=== PATIENT | male | born 1990 | race Caucasian/White ===

== ENCOUNTER 2016-12-22 17:10 | Emergency (ER) | payer BC, MEDICAID ==
[2016-12-22] MEDS ORDERED: NAPR500T2 PO (17:33)
[2016-12-22 18:54] LABS: MEAN CORPUSCULAR HEMOGLOBIN 31.4 pg (27.0-33.0); MEAN CORPUSCULAR HGB CONC 34.9 g/dl (32.0-36.5); RED CELL DISTRIBUTION WIDTH 12.6 % (11.5-14.5); WHITE BLOOD COUNT 12.1 K/mm3 (4.0-10.0)
[2016-12-22 19:18] LABS: METHADONE URINE NEGATIVE (NEGATIVE)
[2016-12-22 19:26] LABS: ALBUMIN 4.3 GM/DL (3.2-5.2); ALBUMIN/GLOBULIN RATIO 1.23 (1.00-1.93); ALKALINE PHOSPHATASE 59 U/L (45-117); ALT/SGPT 50 U/L (12-78); ANION GAP 9 MEQ/L (8-16); AST/SGOT 17 U/L (15-37); BILIRUBIN,DIRECT 0.2 MG/DL (0.0-0.2); BILIRUBIN,TOTAL 0.9 MG/DL (0.2-1.0); BLOOD UREA NITROGEN 8 MG/DL (7-18); CALCIUM LEVEL 9.6 MG/DL (8.5-10.1); CARBON DIOXIDE LEVEL 27 MEQ/L (21-32); CHLORIDE LEVEL 104 MEQ/L (98-107); CREATININE FOR GFR 1.05 MG/DL (0.70-1.30); GLOMERULAR FILTRATION RATE > 60.0 (>60); GLUCOSE, FASTING 140 MG/DL (70-105); POTASSIUM SERUM 4.1 MEQ/L (3.5-5.1); SODIUM LEVEL 140 MEQ/L (136-145); TOTAL PROTEIN 7.8 GM/DL (6.4-8.2)
[2016-12-22 21:10] VITALS: BP 118/78
== END 2016-12-22 21:11 | disposition home or self-care (01) ==
LOC: M ED 18:05
DX: F39 Unspecified mood [affective] disorder (principal)
CPT/HCPCS: 36415; 80048; 80076; 80306; 84443; 85027; 99285; G0480

== ENCOUNTER → 2021-03-07 | Outpatient (CLI) | payer BC ==
[~2021-03-07] MED LIST: NAPR-885 PO
--- NOTE | 2021-03-07 11:44 | REP ---
INDICATION: NEW DAILY PERSISTANT HEADACHES COMPARISON: None. TECHNIQUE: Axial noncontrast images from the skull base to the vertex with coronal reformations. This CT examination was performed using the following dose reduction techniques: Automated exposure control, adjustment of mA and/or kv according to the patient's size, and use of iterative reconstruction technique. FINDINGS: The ventricles, sulci, and cisterns are normal in position and appearance. Fry-white differentiation is maintained. No acute intracranial hemorrhage, mass/mass effect, pathology or trauma/injury. No evidence for acute infarction. No extra-axial fluid collection. Calvarium is intact. Moderate mucoperiosteal changes through the sinuses consistent with chronic sinusitis. IMPRESSION: Moderate chronic sinusitis suggested. No evidence for acute intracranial pathology or trauma/injury. <Electronically signed by Silviano Ceron > 03/07/21 [id number]
== END ==
LOC: M RAD 11:23
PROVIDERS: ATTEND Pediatrics
DX: G44.52 New daily persistent headache (NDPH) (principal)

== ENCOUNTER 2021-03-27 22:51 | Emergency (ER) | payer BC ==
[~2021-03-27] VITALS: Ht 165.1 cm; Wt 107.1 kg
[2021-03-27 22:52] VITALS: BP 134/84
[2021-03-27] MEDS ORDERED: VITA1CAP25 PO (23:00)
[2021-03-27] MEDS ORDERED: AMOX875T2 PO (23:00)
== END 2021-03-28 01:35 | disposition left against medical advice (07) ==
LOC: M ED 22:51
DX: Z53.21 Procedure and treatment not carried out due to patient leaving prior to being seen by health care provider (principal)

== ENCOUNTER 2021-09-08 21:37 | Emergency (ER) | payer BC ==
[~2021-09-08] VITALS: Ht 167.6 cm; Wt 106.3 kg
[~2021-09-08 21:37] MED LIST changes: +AMOX875T2 PO; +VITA1CAP25 PO
[2021-09-08 21:39] VITALS: BP 142/96
--- OUTSIDE RECORDS SUMMARY | 2021-09-08 21:43 | CCD ---
Author Organization Unknown Address [address] [place] [address] Phone [phone] Care Team Providers Care Claim Specialist Name Role Phone [facility] 129 [phone] FERMIN RICHARDSON MD 3 [phone] Allergies Code Code System Name Reaction Severity Status Onset NKDA Medications Name Status Start Date Stop Date Augmentin 875 mg-125 mg tablet Take 1 tablet every 12 hours by oral route for 14 days. Completed 04/17/2021 b2 100mg tab TAKE 4 TABLETS BY MOUTH ONCE DAILY Completed 08/03 fluticasone propionate 50 mcg/actuation nasal spray,suspension [place] 1 spray every day by intranasal route. Active Not available magnesium oxide 500 mg tablet TAKE 1 TABLET BY MOUTH ONCE DAILY Active Not a vailable riboflavin (vitamin B2) 400 mg tablet Take 1 tablet every day by oral route. Active Not available Vitamin D3 50 mcg (2,000 unit) capsule Take 1 capsule every day by oral route. Active Not available zonisamide 25 mg capsule Completed 021 zonisamide 50 mg capsule Active Not murali ilable Problems Name Status Onset Date Source Mixed Anxiety and Depressive Disorder Active 02/25/2021 Seasonal Allergy Active 02/25/2021 Vitamin D Deficiency Active 03/17/2021 Hyperlipidemia Active 03/17/2021 Chronic Sinusitis Active 03/17/2021 Sinus Headache Active 03/17/2021 Depressive Disorder Active 06/04/2021 Headache Disorder Active 08/11/2021 Procedures Date Name Performed by 02/25/2021 CT, Head, W/o Contrast [facility] [address] [place] [address] (Work Place) Results Lab Results Date Name Specimen Result Interpretation Description Value Range Status Address Lipid Panel, Serum Blood venous High Cholesterol, T otal 230 mg/dL <200 mg/dL Final [facility] gh: [address] [place] Blood venous Normal HDL Cholesterol 50 mg/dL > or = 40 mg/dL Final [facility]: [address] [facility] Blood venous High Triglycerides 179 mg/dL <150 mg/dL [facility]: [address] [facility] Blood venous High LDL-cholesterol 149 mg/dL (ca lc) [facility]: [address] [facility] Blood venous Normal Chol/hdlc Ratio 4.6 (calc) <5 .0 (calc) [facility]: [address] [facility] Blood venous High Non HDL Cholesterol 180 mg/dL (calc) <130 mg/dL (calc) Final [facility]: [address] [facility] Hepatitis Panel (A+B+C), Acute, Serum Blood venous Normal Hepatitis a IgM non-reactive non-reactive Final [facility]: [address] [facility] Blood venous Normal Hepatitis B Surface Antig en non-reactive non-reactive Final [facility]: [address] [facility] Blood venous Normal Hepatitis B Core Antibody (IgM) non-reactive non-reactive Final [facility]: [address] [facility] Blood venous Normal Hepatitis C Antibody non -reactive non-reactive [facility]: [address] [facility] Blood venous Normal Index 0.01 <1.00 Final [facility]: [address] [facility] HIV 1+2 Ab + HIV1 P24 Ag, Quantitative Immunoassay, Serum Normal HIV Ag/Ab, 4TH Gen non-reactive non-reactive Final [facility]: [address] [facility] CMP, Serum or Plasma Blood venous Normal Glucose 98 mg/dL 65-99 mg/dL [facility]: [address] [facility] venous Normal Urea Nitrogen (BUN) 13 mg/dL 7-25 mg/dL [facility]: [address] [facility] Blood venous Normal Creatinine 0.88 mg/dL 0.60-1. 35 mg/dL [facility]: [address] [facility] Blood venous Normal eGFR Non-afr. Finnish 1 15 mL/min/1.73m2 > or = 60 mL/min/1.73m2 [facility]: [address] [facility] Blood venous Normal eGFR 13 4 mL/min/1.73m2 > or = 60 mL/min/1.73m2 [facility] [address] [facility] Blood venous BUN/creatinine Ratio not applicable (calc) 6-22 (calc) [facility]: [address] [facility] Blood venous Normal Sodium 138 mmol/L 135-146 mmo l/L [facility]: [address] [facility] Blood venous Normal Potassium 4.0 mmol/L 3.5-5.3 mmol/L [facility]: [address] [facility] Blood venous Normal Chloride 102 mmol/L 98-110 mm ol/L [facility]: [address] [facility] Blood venous Normal Carbon Dioxide 28 mmol/L 20-3 2 mmol/L [facility]: [address] [facility] Blood venous Normal Calcium 9.7 mg/dL 8.6-10.3 mg /dL [facility]: [address] [facility] Blood venous Normal Protein, Total 7.4 g/dL 6.1-8 .1 g/dL [facility]: [address] [facility] Blood venous Normal Albumin 4.4 g/dL 3.6-5.1 g/dL [facility]: [address] [facility] Blood venous Normal Globulin 3.0 g/dL (calc) 1.9- 3.7 g/dL (calc) [facility]: [address] [facility] Blood venous Normal Albumin/globulin Ratio 1 .5 (calc) 1.0-2.5 (calc) [facility]: [address] [facility] Blood venous Normal Bilirubin, Total 0.7 mg/dL 0. 2-1.2 mg/dL [facility]: [address] [facility] Blood venous Normal Alkaline Phosphatase 51 U/L 3 6-130 U/L [facility]: [address] [facility] Blood venous Normal Ast 27 U/L 10-40 U/L [facility]: [address] [facility] Blood venous Normal Alt 40 U/L 9-46 U/L Final [facility]: [address] [place] Tsh Normal Tsh 1.43 mIU/L 0.40-4.50 mIU/L Tosha l [facility]: [address] [place] Vitamin D, 25-Hydroxy, Total, Serum Blood venous Low Vitamin D,25- Oh,total,ia 12 NG/mL 30-100 NG/mL Final [facility]: [address] [facility] HbA1C (Hemoglobin a1C), Blood Blood venous Normal Hemoglobin a1C 4.9 % of total HGB <5.7 % of total HGB Final [facility]: [address] [facility] RPR (Rapid Plasma Reagin), Serum Blood venous Normal RPR (DX) W/refl Titer and Confirmatory Testing non-reactive non-reactive Final [facility]: [address] [place] Past Encounters 08/20/2021 Administration of SARS-CoV-2 mRNA Vaccine Jose Cedeno MD: [address] [place] [phone], Ph. 08/12/2021 Headache Disorder; Mixed Anxiety and Depressive Disorder; Hyperlipidemia; Vitamin D Deficiency; Body Mass Index 30+ - Obesity; Influenza Vaccination Declined Fermin Richardson MD: [address] [place] [address], Ph. 07/31/2021 Cervical Lymphadenopathy Jose Cedeno MD: [address] [place] [phone], Ph. 07/28/2021 Depressive Disorder Raine Moctezuma [facility]: [address] [place] [address], Ph. 07/14/2021 Depressive Disorder Raine Moctezuma [facility]: [address] [place] [address], Ph. 06/30/2021 Depressive Disorder Riane Moctezuma [facility]: [address] [place] [address], Ph. 06/16/2021 Depressive Disorder Raine Moctezuma [facility]: [address] [place] [phone], Ph. 06/03/2021 Depressive Disorder Raine Moctezuma, [facility]: [address] [place] [phone], Ph. 04/17/2021 Headache; Sinus Headache Fermin Richardson MD: [address] [place] [phone], Ph. 03/17/2021 Chronic Sinusitis; Hyperlipidemia; Vitamin D Deficiency Fermin Richardson MD: [address] [place] [phone], Ph. 03/06/2021 Endocrine/metabolic Screening; Venereal Disease Screening; Hyperlipidemia Screening [facility] [address] [place] [phone], Ph. 02/25/2021 Patient New to Provider; Hyperlipidemia Screening; Endocrine/metabolic Screening; Venereal Disease Screening; Body Mass Index 30+ - Obesity; Mixed Anxiety and Depressive Disorder; Immunization Due; New Daily Persistent Headache Fermin Richardson MD: [address] [place] [phone], Ph. 01/08/2021 Administration of SARS-CoV-2 Antigen Vaccine Jose Cedeno MD: [address] [place] [phone], Ph. 12/08/2020 Administration of SARS-CoV-2 Antigen Vaccine [facility]: [address] [place] [phone], Ph. Social History Tobacco Smoking Status Former Smoker Vaccine List Vaccine Type COVID-19, mRNA, LNP-S, PF, 100 mcg/0.5 m L dose (Moderna) .5 mL .5 mL .25 mL Td (adult) preservative free 10.5 mL Plan of Care Reminders Provider Appointments None recorded. Lab None recorded. Referral None recorded. Procedures None recorded. Surgeries None recorded. Imaging None recorded. Vitals 08/12/2021 09:00AM ESTABLISHED [id number] Height Weight BMI Blood Pressure 65 in 232 lbs 6 oz 38.7 kg/m2 110/75 mm[Hg] 07/31/2021 11:00AM SAME DAY 20 Height Weight BMI Blood Pressure 65 in 234 lbs 4 oz 39 kg/m2 117/78 mm[Hg] 04/17/2021 05:00PM ESTABLISHED [id number] Height Weight BMI Blood Pressure 65 in 237 lbs 2 oz 39.5 kg/m2 112/78 mm[Hg] 03/17/2021 05:00PM PROVIDER REQUESTED Height Weight BMI Blood Pressure 65 in 233 lbs 9.6 oz 38.9 kg/m2 107/73 mm[Hg ] 03/06/2021 01:00PM NURSE LAB COLLECTION Height 65 in 02/25/2021 05:20PM NEW PATIENT (12yrs - OLDER) Height Weight BMI Blood Pressure 65 in 233 lbs 3.2 oz 38.8 kg/m2 123/82 mm[Hg ]
--- OUTSIDE RECORDS SUMMARY | 2021-09-08 21:43 | CCD ---
Author Organization Unknown Address [address] [place] [address] Phone [phone] Care Team Providers Care Sustainability Project Manager Name Role Phone Daisy Ann Unavailable Unavailable Allergies Code Code System Name Reaction Severity Status Onset NKDA Medications Name Status Start Date Stop Date Augmentin 875 mg-125 mg tablet Take 1 tablet every 12 hours by oral route for 14 days. Completed 04/17/2021 b2 100mg tab TAKE 4 TABLETS BY MOUTH ONCE DAILY Active Not available fluticasone propionate 50 mcg/actuation nasal spray,suspension [place] 1 spray every day by intranasal route. [...] Active Not available zonisamide 25 mg capsule Active Not murali ilable zonisamide 50 mg capsule Active Not murali ilable Problems Name Status Onset Date Source Mixed Anxiety and Depressive Disorder Active 02/25/2021 Seasonal Allergy Active 02/25/2021 Vitamin D Deficiency Active 03/17/2021 Hyperlipidemia Active 03/17/2021 Chronic Sinusitis Active 03/17/2021 Sinus Headache Active 03/17/2021 Depressive Disorder Active 06/04/2021 Procedures Date Name Performed by 02/25/2021 CT, Head, W/o Contrast [facility] [address] [place] [address] (Work Place) Results Lab Results Date Name Specimen Result Interpretation Description Value Range Status Address Lipid Panel, Serum Blood venous High Cholesterol, T otal 230 mg/dL <200 mg/dL Final [facility]: [address] [place] Blood venous Normal HDL Cholesterol 50 mg/dL > or = 40 mg/dL Final [facility]: [address] [place], [place] Blood venous High Triglycerides 179 mg/dL <150 mg/dL Final [facility]: [address] [facility] [place] [facility] Blood venous High LDL-cholesterol 149 mg/dL (ca lc) Final [facility]: [address] [facility] Blood venous Normal Chol/hdlc Ratio 4.6 (calc) <5 .0 (calc) [facility]: [address] [facility] Blood venous High Non HDL Cholesterol 180 mg/dL (calc) <130 mg/dL (calc) Final [facility]: [address] [facility] Hepatitis Panel (A+B+C), Acute, Serum Blood venous Normal Hepatitis a IgM non-reactive non-reactive Final [facility]: [address] [facility] Blood venous Normal Hepatitis B Surface Antig en non-reactive non-reactive Final [facility]: [address] [facility] Blood venous Normal Hepatitis B Core Antibody (IgM) non-reactive non-reactive Final [facility]: [address] [facility] Blood venous Normal Hepatitis C Antibody non -reactive non-reactive [facility]: [address] [facility] Blood venous Normal Index 0.[address] <1.[address] [facility]: [address] [facility] HIV 1+2 Ab + HIV1 P24 Ag, Quantitative Immunoassay, Serum Normal HIV Ag/Ab, 4TH Gen non-reactive non-reactive Final [facility]: [address] [facility] CMP, Serum or Plasma Blood venous Normal Glucose 98 mg/dL 65-99 mg/dL Final [facility]: [address] [facility] Blood venous Normal Urea Nitrogen (BUN) 13 mg/dL 7-25 mg/dL Final [facility]: [address] [facility] [place] [facility] Blood venous Normal Creatinine 0.88 mg/dL 0.60-1. 35 mg/dL [facility]: [address] [facility] [place] [facility] Blood venous Normal eGFR Non-afr. [place] 1 15 mL/min/1.73m2 > or = 60 mL/min/1.73m2 Final [facility]: [address] [facility] Blood venous Normal eGFR 13 4 mL/min/1.73m2 > or = 60 mL/min/1.73m2 Final [facility]: [address] [facility] Blood venous BUN/creatinine Ratio not applicable (calc) 6-22 (calc) Final [facility]: [address] [facility] Blood venous Normal Sodium 138 mmol/L 135-146 mmo l/L Final [facility]: [address] [facility] [place] [facility] Blood venous Normal Potassium 4.0 mmol/L 3.5-5.3 mmol/L Final [facility]: [address] [facility] Blood venous Normal Chloride 102 mmol/L 98-110 mm ol/L Final [facility]: [address] [facility] [place] [facility] Blood venous Normal Carbon Dioxide 28 mmol/L 20-3 2 mmol/L Final [facility]: [address] [facility] Blood venous Normal Calcium 9.7 mg/dL 8.6-10.3 mg /dL [facility]: [address] [facility] [place] [facility] Blood venous Normal Protein, Total 7.4 g/dL 6.1-8 .1 g/dL Final [facility]: [address] [facility] Blood venous Normal Albumin 4.4 g/dL 3.6-5.1 g/dL [facility]: [address] [facility] Blood venous Normal Globulin 3.0 g/dL (calc) 1.9- 3.7 g/dL (calc) [facility]: [address] [facility] Blood venous Normal Albumin/globulin Ratio 1 .5 (calc) 1.0-2.5 (calc) [facility]: [address] [facility] Blood venous Normal Bilirubin, Total 0.7 mg/dL 0. 2-1.2 mg/dL Final [facility]: [address] [facility] Blood venous Normal Alkaline Phosphatase 51 U/L 3 6-130 U/L Final [facility]: [address] [facility] Blood venous Normal Ast 27 U/L 10-40 U/L Final [facility]: [address] [facility] Blood venous Normal Alt 40 U/L 9-46 U/L [facility] [address] [facility] Tsh Normal Tsh 1.43 mIU/L 0.40-4.50 mIU/L Tosha l [facility]: [address] [facility] Vitamin D, 25-Hydroxy, Total, Serum Blood venous Low Vitamin D,25- Oh,total,ia 12 NG/mL 30-100 NG/mL Final [facility]: [address] [facility] HbA1C (Hemoglobin a1C), Blood Blood venous Normal Hemoglobin a1C 4.9 % of total HGB <5.7 % of total HGB Final [facility]: [address] [facility] RPR (Rapid Plasma Reagin), Serum Blood venous Normal RPR (DX) W/refl Titer and Confirmatory Testing non-reactive non-reactive Final [facility]: [address] [facility] Past Encounters 07/31/2021 Cervical Lymphadenopathy Jose Cedeno MD: [address] [place] [phone], Ph. 07/28/2021 Depressive Disorder [facility] [address] [place] [phone], Ph. 07/14/2021 Depressive Disorder [facility]jelica [facility]: [address] [place] [phone], Ph. 06/30/2021 Depressive Disorder [facility]jelica [facility]: [address] [place] [phone], Ph. 06/16/2021 Depressive Disorder [facility]aine [facility]: [address] [place] [phone], Ph. 06/03/2021 Depressive Disorder [facility]jelica [facility]: [address] [place] [phone], Ph. 04/17/2021 Headache; Sinus Headache Karen David MD: [address] [place] [phone], Ph. 03/17/2021 Chronic Sinusitis; Hyperlipidemia; Vitamin D Deficiency Karen David MD: [address] [place] [phone], Ph. 03/06/2021 Endocrine/metabolic Screening; Venereal Disease Screening; Hyperlipidemia Screening Daisy Ann [employer]: [address] [place] [phone], Ph. 02/25/2021 Patient New to Provider; Hyperlipidemia Screening; Endocrine/metabolic Screening; Venereal Disease Screening; Body Mass Index 30+ - Obesity; Mixed Anxiety and Depressive Disorder; Immunization Due; New Daily Persistent Headache Karen David MD: [address] [place] [phone], Ph. 01/08/2021 Administration of SARS-CoV-2 Antigen Vaccine Jose Cedeno MD: [address] [place] [phone], Ph. 12/08/2020 Administration of SARS-CoV-2 Antigen Vaccine Heather Chavez [facility]: [address] [place] [phone], Ph. Social History Tobacco Smoking Status Former Smoker Vaccine List Vaccine Type COVID-19, mRNA, LNP-S, PF, 100 mcg/0.5 m L dose 10.5 mL 10.5 mL Td (adult) preservative free 10.5 mL Plan of Care Reminders Provider Appointments None recorded. Lab None recorded. Referral None recorded. Procedures None recorded. Surgeries None recorded. Imaging None recorded. Vitals 07/31/2021 11:00AM SAME DAY 20 Height Weight BMI Blood Pressure 65 in 234 lbs 4 oz 39 kg/m2 117/78 mm[Hg] 04/17/2021 05:00PM ESTABLISHED [id number] Height Weight BMI Blood Pressure 65 in [...]
--- OUTSIDE RECORDS SUMMARY | 2021-09-08 21:43 | CCD ---
Author Organization Unknown Address [address] [place] [address] Phone [phone] Care Team Providers Care Supervisor Bottle Machines Name Role Phone [facility] 129 [phone] FERMIN RICHARDSON MD 3 [phone] Allergies Code Code System Name Reaction Severity Status Onset NKDA Medications Name Status Start Date Stop Date Augmentin 875 mg-125 mg tablet Take 1 tablet every 12 hours by oral route for 14 days. Completed 04/17/2021 b2 100mg tab TAKE 4 TABLETS BY MOUTH ONCE DAILY Completed 08/03 fluticasone propionate 50 mcg/actuation nasal spray,suspension [place] 1 spray every day by intranasal route. [...] Performed by 02/25/2021 CT, Head, W/o Contrast [facility] [address] [place] [address] (Work Place) Results Lab Results Date Name Specimen Result Interpretation Description Value Range Status Address Lipid Panel, Serum Blood venous High Cholesterol, T otal 230 mg/dL <200 mg/dL Final [facility] gh: [address] , [place] Blood venous Normal HDL Cholesterol 50 mg/dL > or = 40 mg/dL Final [facility]: [address] [facility] Blood venous High Triglycerides 179 mg/dL <150 mg/dL [facility]: [address] [facility] Blood venous High LDL-cholesterol 149 mg/dL (ca lc) [facility]: [address] [facility] Blood venous Normal Chol/hdlc Ratio 4.6 (calc) <5 .0 (calc) [facility]: [address] [facility] Blood venous High Non HDL Cholesterol 180 mg/dL (calc) <130 mg/dL (calc) Final [facility]: [address] [facility] Hepatitis Panel (A+B+C), Acute, Serum Blood venous Normal Hepatitis a IgM non-reactive non-reactive Final [facility]: [address] [facility] Blood venous Normal Hepatitis B Surface Antig en non-reactive non-reactive Final [facility]: [address] [facility] Blood venous Normal Hepatitis B Core Antibody (IgM) non-reactive non-reactive Final [facility]: [address] [facility] Blood venous Normal Hepatitis C Antibody non -reactive non-reactive [facility]: [address] [facility] Blood venous Normal Index 0.01 <1.00 Final [facility]: [address] [facility] HIV 1+2 Ab + HIV1 P24 Ag, Quantitative Immunoassay, Serum Normal HIV Ag/Ab, 4TH Gen non-reactive non-reactive Final [facility]: [address] [facility] CMP, Serum or Plasma Blood venous Normal Glucose 98 mg/dL 65-99 mg/dL [facility]: [address] [facility] venous Normal Urea Nitrogen (BUN) 13 mg/dL 7-25 mg/dL [facility]: [address] [facility] Blood venous Normal Creatinine 0.88 mg/dL 0.60-1. 35 mg/dL [facility]: [address] [facility] Blood venous Normal eGFR Non-afr. Faro[place] 1 15 mL/min/1.73m2 > or = 60 mL/min/1.73m2 [facility]: [address] [facility] Blood venous Normal eGFR 13 4 mL/min/1.73m2 > or = 60 mL/min/1.73m2 [facility] [address] [facility] Blood venous BUN/creatinine Ratio not applicable (calc) 6-22 (calc) [facility]: [address] [facility] Blood venous Normal Sodium 138 mmol/L 135-146 mmo l/L [facility]: [address] [facility] Blood venous Normal Potassium 4.0 mmol/L 3.5-5.3 mmol/L [facility]: [address] [facility] Blood venous Normal Chloride 102 mmol/L 98-110 mm ol/L [facility]: [address] [facility] Blood venous Normal Carbon Dioxide 28 mmol/L 20-3 2 mmol/L [facility]: [address] [facility] Blood venous Normal Calcium 9.7 mg/dL 8.6-10.3 mg /dL [facility]: [address] [facility] Blood venous Normal Protein, Total 7.4 g/dL 6.1-8 .1 g/dL [facility]: [address] [facility] Blood venous Normal Albumin 4.4 g/dL 3.6-5.1 g/dL [facility]: [address] [facility] Blood venous Normal Globulin 3.0 g/dL (calc) 1.9- 3.7 g/dL (calc) [facility]: [address] [facility] Blood venous Normal Albumin/globulin Ratio 1 .5 (calc) 1.0-2.5 (calc) [facility]: [address] [facility] Blood venous Normal Bilirubin, Total 0.7 mg/dL 0. 2-1.2 mg/dL [facility]: [address] [facility] Blood venous Normal Alkaline Phosphatase 51 U/L 3 6-130 U/L [facility]: [address] [facility] Blood venous Normal Ast 27 U/L 10-40 U/L [facility]: [address] [facility] Blood venous Normal Alt 40 U/L 9-46 U/L Final [facility]: [address] [place] Tsh Normal Tsh 1.43 mIU/L 0.40-4.50 mIU/L Tosha l [facility] [place]: [address] [place] Vitamin D, 25-Hydroxy, Total, Serum Blood venous Low Vitamin D,25- Oh,total,ia 12 NG/mL 30-100 NG/mL Final [facility]: [address] [place] HbA1C (Hemoglobin a1C), Blood Blood venous Normal Hemoglobin a1C 4.9 % of total HGB <5.7 % of total HGB Final [facility]: [address] [facility] [place] RPR (Rapid Plasma Reagin), Serum Blood venous Normal RPR (DX) W/refl Titer and Confirmatory Testing non-reactive non-reactive Final [facility]: [address] [place] Past Encounters 08/12/2021 Headache Disorder; Mixed Anxiety and Depressive Disorder; Hyperlipidemia; Vitamin D Deficiency; Body Mass Index 30+ - Obesity; Influenza Vaccination Declined Fermin Richardson MD: [address] [place] [phone], Ph. 07/31/2021 Cervical Lymphadenopathy Jose Cedeno MD: [address] [place] [phone], Ph. 07/28/2021 Depressive Disorder [facility]: [address] [place] [phone], Ph. 07/14/2021 Depressive Disorder [facility]aine [facility]: [address] [place] [phone], Ph. 06/30/2021 Depressive Disorder [facility]aine [facility]: [address] [place] [phone], Ph. 06/16/2021 Depressive Disorder [facility]aine [facility]: [address] [place] [phone], Ph. 06/03/2021 Depressive Disorder [facility]aine [facility]: [address] [place] [phone], Ph. 04/17/2021 Headache; Sinus Headache Fermin Richardson MD: [address] [place] [phone], Ph. 03/17/2021 Chronic Sinusitis; Hyperlipidemia; Vitamin D Deficiency Fermin Richardson MD: [address] [place] [phone], Ph. 03/06/2021 Endocrine/metabolic Screening; Venereal Disease Screening; Hyperlipidemia Screening [facility] [address] [place] [phone], Ph. 02/25/2021 Patient New to Provider; Hyperlipidemia Screening; Endocrine/metabolic Screening; Venereal Disease Screening; Body Mass Index 30+ - Obesity; Mixed Anxiety and Depressive Disorder; Immunization Due; New Daily Persistent Headache Fermin Richardson MD: [address] [place] [phone], Ph. 01/08/2021 Administration of SARS-CoV-2 Antigen Vaccine Jose Cedeno MD: [address] [place] [phone], Ph. 12/08/2020 Administration of SARS-CoV-2 Antigen Vaccine CORY Steward: [address] [place] [phone], Ph. Social History Tobacco Smoking Status Former Smoker Vaccine List Vaccine Type COVID-19, mRNA, LNP-S, PF, 100 mcg/0.5 m L dose 10.5 mL 10.5 mL Td (adult) preservative free 10.5 mL Plan of Care Reminders Provider Appointments None recorded. Lab None recorded. Referral None recorded. Procedures None recorded. Surgeries None recorded. Imaging None recorded. Vitals 08/12/2021 09:00AM ESTABLISHED [id number] Height Weight BMI Blood Pressure 65 in 232 lbs 6 oz 38.7 kg/m2 110/75 mm[Hg] 07/31/2021 11:00AM SAME DAY 20 Height Weight BMI Blood Pressure 65 in 234 lbs 4 oz 39 kg/m2 117/78 mm[Hg] 04/17/2021 05:00PM ESTABLISHED [id number] Height Weight BMI Blood Pressure 65 in [...]
--- OUTSIDE RECORDS SUMMARY | 2021-09-08 21:43 | CCD | Continuity of Care Document ---
Author Author Jaxson CAMEJO M.D. Organization Unknown Address [address] [place] [id number] Phone [phone] Care Team Providers Care Rn Medicare Name Role Phone Karen David M.D. AUTM [phone] Problems Description No Information Available Social History Type Date Description Comments Sex Unknown Allergies and adverse reactions Description No Information Available Medications Active Medications SIG Qnty Indications Ordering Provide r Date Zonisamide 50mg Capsules 1 by mouth twice a day 60rigo Camejo M.D. 06/11/2021 History Medications Zonisamide 25mg Capsules 1 tab by mouth nightly x 1 week, then 1 tab twice a day x 1 week, then 1 tab morning and 2 tabs nightly 42rigo Camejo M.D. 06/11/2021 - 07/07/2021 Immunizations Description No Information Available Vital Signs Description No Information Available Results Description No Information Available Procedures Date Code Description Status 07/07/2021 69480 Phone Evaluation/Management Phys ician 11-20 Mins Completed 06/15/2021 24609 MRI Brain W/O Contrast Completed 06/15/2021 52979 MRI Brain W/O Contrast Completed 06/15/2021 67283 MRI Brain W/O Contrast Completed 06/09/2021 70992 EEG Recording Awake & Asleep Com pleted 06/09/2021 42218 EEG Recording Awake & Asleep Com pleted 04/30/2021 31566 Office/Outpatient New Moderate M DM 45-59 Minutes Completed Medical Devices Description No Information Available Encounters Type Date Location Provider Dx Diagnosis Office Visit 07/07/2021 10:15a Main office - [place] Came[place] M.[place]. R42 Dizziness and giddiness G47.00 Insomnia, unspecified G43.809 Other migraine, not intracta ble, without status migrainosus Office Visit 04/30/2021 3:00p Main office - [place] Becky Camejo M.D. R42 Dizziness and giddiness G47.00 Insomnia, unspecified G43.809 Other migraine, not intracta ble, without status migrainosus I95.1 Orthostatic hypotension Assessments Date Code Description Provider 07/07/2021 R42 Dizziness and giddiness Becky amato M.D. 07/07/2021 G47.00 Insomnia, unspecified Becky salgado M.D. 07/07/2021 G43.809 Other migraine, not intractable, without status migrainosus Becky Camejo M.D. 06/15/2021 G43.809 Other migraine, not intractable, without status migrainosus Ney Urbina MD 06/15/2021 G43.809 Other migraine, not intractable, without status migrainosus Darlene Camejo M.D. 06/15/2021 G43.809 Other migraine, not intractable, without status migrainosus MRI 06/15/2021 R55 Syncope and collapse Ney Urbina MD 06/15/2021 R55 Syncope and collapse Darlene Camejo M.D. 06/15/2021 R55 Syncope and collapse MRI 06/09/2021 R55 Syncope and collapse Becky jha M.D. 06/09/2021 R55 Syncope and collapse EEG 06/09/2021 R53.83 Other fatigue Nathan Andrew 06/09/2021 R53.83 Other fatigue EEG 04/30/2021 R42 Dizziness and giddiness Becky amato M.D. 04/30/2021 G47.00 Insomnia, unspecified Becky salgado M.D. 04/30/2021 G43.809 Other migraine, not intractable, without status migrainosus Becky Camejo M.D. 04/30/2021 I95.1 Orthostatic hypotension Becky amato M.D. Plan of Treatment Future Appointment(s):* 08/14/2021 1:45 pm - Ans/VS at Main office - [place] Functional Status Description No Information Available Mental Status Description No Information Available Referrals Refer to Reason for Referral Status Appt Date Created
--- OUTSIDE RECORDS SUMMARY | 2021-09-08 21:43 | CCD ---
Author Organization Unknown Address [address] [place] [address] Phone [phone] Care Team Providers Care Wig Sales Consultant Name Role Phone Daisy Ann Unavailable Unavailable Allergies Code Code System Name Reaction Severity Status Onset NKDA Medications Name Status Start Date Stop Date Augmentin 875 mg-125 mg tablet Take 1 tablet every 12 hours by oral route for 14 days. Completed 04/17/2021 b2 100mg tab TAKE 4 TABLETS BY MOUTH ONCE DAILY Active Not available fluticasone propionate 50 mcg/actuation nasal spray,suspension [place] 1 spray every day by intranasal route. [...] Performed by 02/25/2021 CT, Head, W/o Contrast [facility] [address] [place] [address] (Work Place) Results Lab Results Date Name Specimen Result Interpretation Description Value Range Status Address Lipid Panel, Serum Blood venous High Cholesterol, T otal 230 mg/dL <200 mg/dL Final [facility]: [address] [place] Blood venous Normal HDL Cholesterol 50 mg/dL > or = 40 mg/dL Final [facility]: [address], [place] Blood venous High Triglycerides 179 mg/dL <150 mg/dL Final [facility]: [address] [facility] Blood venous High LDL-cholesterol 149 mg/dL (ca lc) Final [facility]: [address] [facility] Blood venous Normal Chol/hdlc Ratio 4.6 (calc) <5 .0 (calc) [facility]: [address] [facility] Blood venous High Non HDL Cholesterol 180 mg/dL (calc) <130 mg/dL (calc) Final [facility]: [address] [facility] Hepatitis Panel (A+B+C), Acute, Serum Blood venous Normal Hepatitis a IgM non-reactive non-reactive Final [facility]: [address] [facility] Blood venous Normal Hepatitis B Surface Antig en non-reactive non-reactive Final [facility]: [address] [facility] Blood venous Normal Hepatitis B Core Antibody (IgM) non-reactive non-reactive Final [facility]: [address] [facility] Blood venous Normal Hepatitis C Antibody non -reactive non-reactive [facility]: [address] [facility] Blood venous Normal Index 0.01 <1.00 Final [facility]: [address] [facility] HIV 1+2 Ab + HIV1 P24 Ag, Quantitative Immunoassay, Serum Normal HIV Ag/Ab, 4TH Gen non-reactive non-reactive Final [facility]: [address] [facility] CMP, Serum or Plasma Blood venous Normal Glucose 98 mg/dL 65-99 mg/dL Final [facility]: [address] [facility] Blood venous Normal Urea Nitrogen (BUN) 13 mg/dL 7-25 mg/dL Final [facility]: [address] [facility] Blood venous Normal Creatinine 0.88 mg/dL 0.60-1. 35 mg/dL [facility]: [address] [facility] Blood venous Normal eGFR Non-afr. [place] 1 15 mL/min/1.73m2 > or = 60 mL/min/1.73m2 Final [facility]: [address] [facility] Blood venous Normal eGFR 13 4 mL/min/1.73m2 > or = 60 mL/min/1.73m2 Final [facility]: [address] [facility] Blood venous BUN/creatinine Ratio not applicable (calc) 6-22 (calc) Final [facility]: [address] [facility] Blood venous Normal Sodium 138 mmol/L 135-146 mmo l/L Final [facility]: [address] [facility] Blood venous Normal Potassium 4.0 mmol/L 3.5-5.3 mmol/L Final [facility]: [address] [facility] Blood venous Normal Chloride 102 mmol/L 98-110 mm ol/L Final [facility]: [address] [facility] Blood venous Normal Carbon Dioxide 28 mmol/L 20-3 2 mmol/L Final [facility]: [address] [facility] Blood venous Normal Calcium 9.7 mg/dL 8.6-10.3 mg /dL [facility]: [address] [facility] Blood venous Normal Protein, Total 7.4 g/dL 6.1-8 .1 g/dL Final [facility]: [address] [facility] Blood venous Normal Albumin 4.4 g/dL 3.6-5.1 g/dL [facility]: [address] [facility] Blood venous Normal Globulin 3.0 g/dL (calc) 1.9- 3.7 g/dL (calc) [facility]: [address] [facility] Blood venous Normal Albumin/globulin Ratio 1 .5 (calc) 1.0-2.5 (calc) [facility]: [address] [facility] Normal Bilirubin, Total 0.7 mg/dL 0. 2-1.2 mg/dL Final [facility]: [address] [facility] Blood venous Normal Alkaline Phosphatase 51 U/L 3 6-130 U/L Final [facility]: [address] [facility] Blood venous Normal Ast 27 U/L 10-40 U/L Final [facility]: [address] [facility] Blood venous Normal Alt 40 U/L 9-46 U/L Final [facility]: [address] [facility] Tsh Normal Tsh 1.43 mIU/L 0.40-4.50 mIU/L Tosha l [facility]: [address] [facility] Vitamin D, 25-Hydroxy, Total, Serum Blood venous Low Vitamin D,25- Oh,total,ia 12 NG/mL 30-100 NG/mL Final [facility]: [address] [facility] HbA1C (Hemoglobin a1C), Blood Blood venous Normal Hemoglobin a1C 4.9 % of total HGB <5.7 % of total HGB Final [facility]: [address] [facility] RPR (Rapid Plasma Reagin), Serum Blood venous Normal RPR (DX) W/refl Titer and Confirmatory Testing non-reactive non-reactive Final [facility]: [address] [facility] Past Encounters 07/28/2021 [facility]ressive [facility] [address] [place] [phone], Ph. 07/14/2021 Depressive Disorder [facility] [address] [place] [phone], Ph. 06/30/2021 Depressive Disorder [facility] [address] [place] [phone], Ph. 06/16/2021 Depressive Disorder [facility] [address] [place] [phone], Ph. 06/03/2021 Depressive Disorder [facility] [address] [place] [phone], Ph. 04/17/2021 Headache; Sinus Headache Karen David MD: [address] [place] [phone], Ph. 03/17/2021 Chronic Sinusitis; Hyperlipidemia; Vitamin D Deficiency Karen David MD: [address] [place] [phone], Ph. 03/06/2021 Endocrine/metabolic Screening; Venereal Disease Screening; Hyperlipidemia Screening GIANA Dave: [address] [place] [phone], Ph. 02/25/2021 Patient New to Provider; Hyperlipidemia Screening; Endocrine/metabolic Screening; Venereal Disease Screening; Body Mass Index 30+ - Obesity; Mixed Anxiety and Depressive Disorder; Immunization Due; New Daily Persistent Headache Karen David MD: [address] [place] [phone], Ph. 01/08/2021 Administration of SARS-CoV-2 Antigen Vaccine Jose Cedeno MD: [address] [place] [phone], Ph. 12/08/2020 Administration of SARS-CoV-2 Antigen Vaccine Heather Chavez [facility]: [address] [place] [phone], Ph. Social History Tobacco Smoking Status Former Smoker Vaccine List Vaccine Type COVID-19, mRNA, LNP-S, PF, 100 mcg/0.5 m L dose 10.5 mL 10.5 mL Td (adult) preservative free 10.5 mL Plan of Care Reminders Provider Appointments None recorded. Lab None recorded. Referral None recorded. Procedures None recorded. Surgeries None recorded. Imaging None recorded. Vitals 04/17/2021 05:00PM ESTABLISHED [id number] Height Weight BMI Blood Pressure 65 in [...]
--- OUTSIDE RECORDS SUMMARY | 2021-09-08 21:44 | CCD | Continuity of Care Document ---
Author Author Jaxson HOLBROOK V Organization Unknown Address [address] [place] [address] Phone [phone] Care Team Providers Care Edge Sawyer Name Role Phone Karen David M.D. AUTM [phone] Problems Description No Information Available Social History Type Date Description Comments Sex Unknown Allergies, Adverse Reactions, Alerts Description No Information Available Medications Description No Information Available Immunizations Description No Information Available Vital Signs Description No Information Available Results Description No Information Available Procedures Date Code Description Status 06/09/2021 60580 EEG Recording Awake & Asleep Com pleted 06/09/2021 10459 EEG Recording Awake & Asleep Com pleted 04/30/2021 62072 Office/Outpatient New Moderate M DM 45-59 Minutes Completed Medical Devices Description No Information Available Encounters Type Date Location Provider Dx Diagnosis Office Visit 04/30/2021 3:00p Main office - [place] Becky Camejo M.D. R42 Dizziness and giddiness G47.00 Insomnia, unspecified G43.809 Other migraine, not intracta ble, without status migrainosus I95.1 Orthostatic hypotension Assessments Date Code Description Provider 06/09/2021 R55 Syncope and collapse Becky jha [...] amato M.D. Plan of Treatment Future Appointment(s):* 07/07/2021 10:15 am - Becky Camejo M.D. at Main [facility] * 06/12/2021 11:45 am - Ans/VS at [facility] Functional Status Description No Information Available Mental Status Description No Information Available Referrals Description No Information Available
--- OUTSIDE RECORDS SUMMARY | 2021-09-08 21:44 | CCD ---
Author Organization Unknown Address [address] [place] [address] Phone [phone] Care Team Providers Care Associate Teacher Name Role Phone Daisy Ann Unavailable Unavailable Allergies Code Code System Name Reaction Severity Status Onset NKDA Medications Name Status Start Date Stop Date Augmentin 875 mg-125 mg tablet Take 1 tablet every 12 hours by oral route for 14 days. Completed 04/17/2021 b2 100mg tab TAKE 4 TABLETS BY MOUTH ONCE DAILY Active Not available fluticasone propionate 50 mcg/actuation nasal spray,suspension [place] 1 spray every day by intranasal route. [...] Performed by 02/25/2021 CT, Head, W/o Contrast [facility] [address] [place] [address] (Work Place) Results Lab Results Date Name Specimen Result Interpretation Description Value Range Status Address Lipid Panel, Serum Blood venous High Cholesterol, T otal 230 mg/dL <200 mg/dL Final [facility]: [address] , [place] Blood venous Normal HDL Cholesterol 50 mg/dL > or = 40 mg/dL Final [facility]: [address], [place] Blood venous High Triglycerides 179 mg/dL <150 mg/dL Final [facility]: [address] [facility] Blood venous High LDL-cholesterol 149 mg/dL (ca lc) Final [facility]: [address] [facility] Blood venous Normal Chol/hdlc Ratio 4.6 (calc) <5 .0 (calc) [facility]: [address] [facility] Blood venous High Non HDL Cholesterol 180 mg/dL (calc) <130 mg/dL (calc) Final [facility]: [address] [facility] Hepatitis Panel (A+B+C), Acute, Serum Blood venous Normal Hepatitis a IgM non-reactive non-reactive Final [facility]: [address] [facility] Blood venous Normal Hepatitis B Surface Antig en non-reactive non-reactive Final [facility]: [address] [facility] Blood venous Normal Hepatitis B Core Antibody (IgM) non-reactive non-reactive Final [facility]: [address] [facility] Blood venous Normal Hepatitis C Antibody non -reactive non-reactive [facility]: [address] [facility] Blood venous Normal Index 0.01 <1.00 Final [facility]: [address] [facility] HIV 1+2 Ab + HIV1 P24 Ag, Quantitative Immunoassay, Serum Normal HIV Ag/Ab, 4TH Gen non-reactive non-reactive Final [facility]: [address] [facility] CMP, Serum or Plasma Blood venous Normal Glucose 98 mg/dL 65-99 mg/dL Final [facility]: [address] [facility] Blood venous Normal Urea Nitrogen (BUN) 13 mg/dL 7-25 mg/dL Final [facility]: [address] [facility] Blood venous Normal Creatinine 0.88 mg/dL 0.60-1. 35 mg/dL [facility]: [address] [facility] Blood venous Normal eGFR Non-afr. Stateless 1 15 mL/min/1.73m2 > or = 60 mL/min/1.73m2 Final [facility]: [address] [facility] Blood venous Normal eGFR 13 4 mL/min/1.73m2 > or = 60 mL/min/1.73m2 Final [facility]: [address] [facility] Blood venous BUN/creatinine Ratio not applicable (calc) 6-22 (calc) Final [facility]: [address] lug[address] [facility] Blood venous Normal Sodium 138 mmol/L 135-146 mmo l/L Final [facility]: [address] [facility] Blood venous Normal Potassium 4.0 mmol/L 3.5-5.3 mmol/L Final [facility]: [address] [facility] Blood venous Normal Chloride 102 mmol/L 98-110 mm ol/L Final [facility]: [address] [facility] Blood venous Normal Carbon Dioxide 28 mmol/L 20-3 2 mmol/L Final [facility]: [address] [facility] Blood venous Normal Calcium 9.7 mg/dL 8.6-10.3 mg /dL [facility]: [address] [facility] Blood venous Normal Protein, Total 7.4 g/dL 6.1-8 .1 g/dL Final [facility]: [address] [facility] Blood venous Normal Albumin 4.4 g/dL 3.6-5.1 g/dL [facility]: [address] [facility] Blood venous Normal Globulin 3.0 g/dL (calc) 1.9- 3.7 g/dL (calc) [facility]: [address] [facility] Blood venous Normal Albumin/globulin Ratio 1 .5 (calc) 1.0-2.5 (calc) [facility]: [address] [facility] venous Normal Bilirubin, Total 0.7 mg/dL 0. 2-1.2 mg/dL Final [facility]: [address] [facility] Blood venous Normal Alkaline Phosphatase 51 U/L 3 6-130 U/L Final [facility]: [address] [facility] Blood venous Normal Ast 27 U/L 10-40 U/L Final [facility]: [address] [facility] Blood venous Normal Alt 40 U/L 9-46 U/L Final [facility]: [address] [facility] Tsh Normal Tsh 1.43 mIU/L 0.40-4.50 mIU/L Tosha l [facility]: [address] [place] [facility] Vitamin D, 25-Hydroxy, Total, Serum Blood venous Low Vitamin D,25- Oh,total,ia 12 NG/mL 30-100 NG/mL Final [facility]: [address] [place] HbA1C (Hemoglobin a1C), Blood Blood venous Normal Hemoglobin a1C 4.9 % of total HGB <5.7 % of total HGB Final [facility]: [address] [facility] RPR (Rapid Plasma Reagin), Serum Blood venous Normal RPR (DX) W/refl Titer and Confirmatory Testing non-reactive non-reactive Final [facility]: [address] [facility] Past Encounters 06/30/2021 Depressive Disorder Raine Moctezuma [facility]: [address] [place] [phone], Ph. 06/16/2021 Depressive Disorder [facility] [address] [place] [phone], Ph. 06/03/2021 Depressive Disorder [facility] [address] [place] [phone], Ph. 04/17/2021 Headache; Sinus Headache Karen David MD: [address] [place] [phone], Ph. 03/17/2021 Chronic Sinusitis; Hyperlipidemia; Vitamin D Deficiency Karen David MD: [address] [place] [phone], Ph. 03/06/2021 Endocrine/metabolic Screening; Venereal Disease Screening; Hyperlipidemia Screening [facility] [address] [place] [phone], Ph. 02/25/2021 Patient New to Provider; Hyperlipidemia Screening; Endocrine/metabolic Screening; Venereal Disease Screening; Body Mass Index 30+ - Obesity; Mixed Anxiety and Depressive Disorder; Immunization Due; New Daily Persistent Headache Karen David MD: [address] [place] [phone], Ph. 01/08/2021 SARS-CoV-2 Vaccination Jose Cedeno MD: [address] [place] [phone], Ph. 12/08/2020 SARS-CoV-2 Vaccination MANA StewardC: [address] [place] [address], Ph. Social History Tobacco Smoking Status Former Smoker Vaccine List Vaccine Type COVID-19, mRNA, LNP-S, PF, 100 mcg/0.5 m L dose 10.5 mL 10.5 mL Td (adult) preservative free .5 mL Plan of Care Reminders Provider Appointments None recorded. Lab None recorded. Referral None recorded. Procedures None recorded. Surgeries None recorded. Imaging None recorded. Vitals 04/17/2021 05:00PM ESTABLISHED [id number] Height Weight BMI Blood Pressure 65 in [...]
--- OUTSIDE RECORDS SUMMARY | 2021-09-08 21:44 | CCD ---
Author Organization Unknown Address [address] [place] [address] Phone [phone] Care Team Providers Care Branch Or Department Chief Librarian Name Role Phone Daisy Ann Unavailable Unavailable Allergies Code Code System Name Reaction Severity Status Onset NKDA Medications Name Status Start Date Stop Date Augmentin 875 mg-125 mg tablet Take 1 tablet every 12 hours by oral route for 14 days. Completed 04/17/2021 b2 100mg tab TAKE 4 TABLETS BY MOUTH ONCE DAILY Active Not available fluticasone propionate 50 mcg/actuation nasal spray,suspension [place] 1 spray every day by intranasal route. [...] Performed by 02/25/2021 CT, Head, W/o Contrast [facility] [address] [place] [address] (Work Place) Results Lab Results Date Name Specimen Result Interpretation Description Value Range Status Address Lipid Panel, Serum Blood venous High Cholesterol, T otal 230 mg/dL <200 mg/dL Final [facility] [employer]: [address] , [place] Blood venous Normal HDL Cholesterol 50 mg/dL > or = 40 mg/dL Final [employer] [facility]: [address], [place] Blood venous High Triglycerides 179 mg/dL <150 mg/dL Final [facility]: [address] [facility] Blood venous High LDL-cholesterol 149 mg/dL (ca lc) Final [facility]: [address] [facility] Blood venous Normal Chol/hdlc Ratio 4.6 (calc) <5 .0 (calc) [facility]: [address] [facility] Blood venous High Non HDL Cholesterol 180 mg/dL (calc) <130 mg/dL (calc) Final [facility]: [address] [facility] Hepatitis Panel (A+B+C), Acute, Serum Blood venous Normal Hepatitis a IgM non-reactive non-reactive Final [facility]: [address] [facility] Blood venous Normal Hepatitis B Surface Antig en non-reactive non-reactive Final [facility]: [address] [facility] Blood venous Normal Hepatitis B Core Antibody (IgM) non-reactive non-reactive Final [facility]: [address] [facility] Blood venous Normal Hepatitis C Antibody non -reactive non-reactive [facility]: [address] [facility] Blood venous Normal Index 0.01 <1.00 Final [facility]: [address] [facility] HIV 1+2 Ab + HIV1 P24 Ag, Quantitative Immunoassay, Serum Normal HIV Ag/Ab, 4TH Gen non-reactive non-reactive Final [facility]: [address] [facility] CMP, Serum or Plasma Blood venous Normal Glucose 98 mg/dL 65-99 mg/dL Final [facility]: [address] [facility] Blood venous Normal Urea Nitrogen (BUN) 13 mg/dL 7-25 mg/dL Final [facility]: [address] [facility] Blood venous Normal Creatinine 0.88 mg/dL 0.60-1. 35 mg/dL [facility]: [address] [facility] Blood venous Normal eGFR Non-afr. [place] 1 15 mL/min/1.73m2 > or = 60 mL/min/1.73m2 Final [facility]: [address] [facility] Blood venous Normal eGFR 13 4 mL/min/1.73m2 > or = 60 mL/min/1.73m2 Final [facility]: [address] [facility] Blood venous BUN/creatinine Ratio not applicable (calc) 6-22 (calc) Final [facility]: [address] lug[address] [facility] Blood venous Normal Sodium 138 mmol/L 135-146 mmo l/L Final [facility]: [address] [facility] Blood venous Normal Potassium 4.0 mmol/L 3.5-5.3 mmol/L Final [facility]: [address] [facility] Blood venous Normal Chloride 102 mmol/L 98-110 mm ol/L Final [facility]: [address] [facility] Blood venous Normal Carbon Dioxide 28 mmol/L 20-3 2 mmol/L Final [facility]: [address] [facility] Blood venous Normal Calcium 9.7 mg/dL 8.6-10.3 mg /dL [facility]: [address] [facility] Blood venous Normal Protein, Total 7.4 g/dL 6.1-8 .1 g/dL Final [facility]: [address] [facility] Blood venous Normal Albumin 4.4 g/dL 3.6-5.1 g/dL [facility]: [address] [facility] Blood venous Normal Globulin 3.0 g/dL (calc) 1.9- 3.7 g/dL (calc) [facility]: [address] [facility] Blood venous Normal Albumin/globulin Ratio 1 .5 (calc) 1.0-2.5 (calc) [facility]: [address] [facility] Blood venous Normal Bilirubin, Total 0.7 mg/dL 0. 2-1.2 mg/dL Final [facility]: [address] [facility] Blood venous Normal Alkaline Phosphatase 51 U/L 3 6-130 U/L Final [facility]: [address] [facility] Blood venous Normal Ast 27 U/L 10-40 U/L Final [facility]: [address] [facility] Blood venous Normal Alt 40 U/L 9-46 U/L Final [facility]: [address] [facility] Tsh Normal Tsh 1.43 mIU/L 0.40-4.50 mIU/L Tohsa l [facility]: [address] [place] [facility] Vitamin D, 25-Hydroxy, Total, Serum Blood venous Low Vitamin D,25- Oh,total,ia 12 NG/mL 30-100 NG/mL Final [facility]: [address] [facility] HbA1C (Hemoglobin a1C), Blood Blood venous Normal Hemoglobin a1C 4.9 % of total HGB <5.7 % of total HGB Final [facility]: [address] [facility] RPR (Rapid Plasma Reagin), Serum Blood venous Normal RPR (DX) W/refl Titer and Confirmatory Testing non-reactive non-reactive Final [facility]: [address] [facility] Past Encounters 07/14/2021 Depressive Disorder Raine Nidhitracy [facility]: [address] [place] [phone], Ph. 06/30/2021 Depressive Disorder [facility] [address] [place] [phone], Ph. 06/16/2021 Depressive Disorder [facility] [address] [place] [phone], Ph. 06/03/2021 Depressive Disorder [facility]: [address] [place] [phone], Ph. 04/17/2021 Headache; Sinus Headache Karen David MD: [address] [place] [phone], Ph. 03/17/2021 Chronic Sinusitis; Hyperlipidemia; Vitamin D Deficiency Karen David MD: [address] [place] [phone], Ph. 03/06/2021 Endocrine/metabolic Screening; Venereal Disease Screening; Hyperlipidemia Screening GIANA Dave: [address] [place] [phone], Ph. 02/25/2021 Patient New to Provider; Hyperlipidemia Screening; Endocrine/metabolic Screening; Venereal Disease Screening; Body Mass Index 30+ - Obesity; Mixed Anxiety and Depressive Disorder; Immunization Due; New Daily Persistent Headache Karen David MD: [address] [place] [phone], Ph. 01/08/2021 Administration of SARS-CoV-2 Antigen Vaccine Jose Cedeno MD: [address] [place] [phone], Ph. 12/08/2020 Administration of SARS-CoV-2 Antigen Vaccine Heather Chavez [facility]: [address] [place] [phone], Ph. Social History Tobacco Smoking Status Former Smoker Vaccine List Vaccine Type COVID-19, mRNA, LNP-S, PF, 100 mcg/0.5 m L dose 10.5 mL 10.5 mL Td (adult) preservative free 10.5 mL Plan of Care Reminders Provider Appointments None recorded. Lab None recorded. Referral None recorded. Procedures None recorded. Surgeries None recorded. Imaging None recorded. Vitals 04/17/2021 05:00PM ESTABLISHED [id number] Height Weight BMI Blood Pressure 65 in [...]
--- OUTSIDE RECORDS SUMMARY | 2021-09-08 21:44 | CCD ---
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 Completed 04/17/2021 b2 100mg tab TAKE 4 TABLETS BY MOUTH ONCE DAILY Active Not available fluticasone propionate 50 mcg/actuation nasal spray,suspension [place] 1 spray every day by intranasal route. [...] Performed by 02/25/2021 CT, Head, W/o Contrast [facility] [address] [place] [address] (Work Place) Results Lab Results Date Name Specimen Result Interpretation Description Value Range Status Address Lipid Panel, Serum Blood venous High Cholesterol, T otal 230 mg/dL <200 mg/dL Final [facility] [place]: [address] , [place] Blood venous Normal HDL Cholesterol 50 mg/dL > or = 40 mg/dL Final [facility]: [address] [place], [place] Blood venous High Triglycerides 179 mg/dL <150 mg/dL Final [facility]: [address] [facility] Blood venous High LDL-cholesterol 149 mg/dL (ca lc) Final [facility]: [address] [facility] Blood venous Normal Chol/hdlc Ratio 4.6 (calc) <5 .0 (calc) [facility]: [address] [facility] Blood venous High Non HDL Cholesterol 180 mg/dL (calc) <130 mg/dL (calc) Final [facility]: [address] [facility] Hepatitis Panel (A+B+C), Acute, Serum Blood venous Normal Hepatitis a IgM non-reactive non-reactive Final [facility]: [address] [facility] Blood venous Normal Hepatitis B Surface Antig en non-reactive non-reactive Final [facility]: [address] [facility] Blood venous Normal Hepatitis B Core Antibody (IgM) non-reactive non-reactive Final [facility]: [address] [facility] Blood venous Normal Hepatitis C Antibody non -reactive non-reactive [facility]: [address] [facility] Blood venous Normal Index 0.01 <1.00 Final [facility]: [address] [facility] HIV 1+2 Ab + HIV1 P24 Ag, Quantitative Immunoassay, Serum Normal HIV Ag/Ab, 4TH Gen non-reactive non-reactive Final [facility]: [address] [facility] CMP, Serum or Plasma Blood venous Normal Glucose 98 mg/dL 65-99 mg/dL Final [facility]: [address] [facility] Blood venous Normal Urea Nitrogen (BUN) 13 mg/dL 7-25 mg/dL Final [facility]: [address] [facility] Blood venous Normal Creatinine 0.88 mg/dL 0.60-1. 35 mg/dL [facility]: [address] [facility] Blood venous Normal eGFR Non-afr. Venezuelan 1 15 mL/min/1.73m2 > or = 60 mL/min/1.73m2 Final [facility]: [address] [facility] Blood venous Normal eGFR 13 4 mL/min/1.73m2 > or = 60 mL/min/1.73m2 Final [facility]: [address] [facility] Blood venous BUN/creatinine Ratio not applicable (calc) 6-22 (calc) Final [facility]: [address] [facility] Blood venous Normal Sodium 138 mmol/L 135-146 mmo l/L Final [facility]: [address] [facility] Blood venous Normal Potassium 4.0 mmol/L 3.5-5.3 mmol/L Final [facility]: [address] [facility] Blood venous Normal Chloride 102 mmol/L 98-110 mm ol/L Final [facility]: [address] [facility] Blood venous Normal Carbon Dioxide 28 mmol/L 20-3 2 mmol/L Final [facility]: [address] [facility] Blood venous Normal Calcium 9.7 mg/dL 8.6-10.3 mg /dL [facility]: [address] [facility] Blood venous Normal Protein, Total 7.4 g/dL 6.1-8 .1 g/dL Final [facility]: [address] [facility] Blood venous Normal Albumin 4.4 g/dL 3.6-5.1 g/dL [facility]: [address] [facility] Blood venous Normal Globulin 3.0 g/dL (calc) 1.9- 3.7 g/dL (calc) [facility]: [address] [facility] Blood venous Normal Albumin/globulin Ratio 1 .5 (calc) 1.0-2.5 (calc) [facility]: [address] [facility] Normal Bilirubin, Total 0.7 mg/dL 0. 2-1.2 mg/dL Final [facility]: [address] [facility] Blood venous Normal Alkaline Phosphatase 51 U/L 3 6-130 U/L Final [facility]: [address] [facility] Blood venous Normal Ast 27 U/L 10-40 U/L Final [facility]: [address] [facility] Blood venous Normal Alt 40 U/L 9-46 U/L Final [facility]: [address] [facility] Tsh Normal Tsh 1.43 mIU/L 0.40-4.50 mIU/L Tosha l [facility]: [address] [facility] Vitamin D, 25-Hydroxy, Total, Serum Blood venous Low Vitamin D,25- Oh,total,ia 12 NG/mL 30-100 NG/mL Final [facility]: [address] [place] HbA1C (Hemoglobin a1C), Blood Blood venous Normal Hemoglobin a1C 4.9 % of total HGB <5.7 % of total HGB Final [facility]: [address] [facility] RPR (Rapid Plasma Reagin), Serum Blood venous Normal RPR (DX) W/refl Titer and Confirmatory Testing non-reactive non-reactive Final [facility]: [address] [place] Past Encounters 06/16/2021 Depressive Disorder Raine Moctezuma [facility]: [address] [place] [phone], Ph. 06/03/2021 Depressive Disorder Raine Moctezuma [facility]: [address] [place] [phone], Ph. 04/17/2021 Headache; Sinus Headache Karen David MD: [address] [place] [phone], Ph. 03/17/2021 Chronic Sinusitis; Hyperlipidemia; Vitamin D Deficiency Karen David MD: [address] [place] [phone], Ph. 03/06/2021 Endocrine/metabolic Screening; Venereal Disease Screening; Hyperlipidemia [facility]ening [facility] [address] [place] [phone], Ph. 02/25/2021 Patient New to Provider; Hyperlipidemia Screening; Endocrine/metabolic Screening; Venereal Disease Screening; Body Mass Index 30+ - Obesity; Mixed Anxiety and Depressive Disorder; Immunization Due; New Daily Persistent Headache Karen David MD: [address] [place] [phone], Ph. 01/08/2021 SARS-CoV-2 Vaccination Jose Cedeno MD: [address] [place] [phone], Ph. 12/08/2020 SARS-CoV-2 Vaccination Heather Chavez, RPA-C: [address] [place] [phone], Ph. Social History Tobacco Smoking Status Former Smoker Vaccine List Vaccine Type COVID-19, mRNA, LNP-S, PF, 100 mcg/0.5 m L dose .5 mL .5 mL Td (adult) preservative free .5 mL Plan of Care Reminders Provider Appointments None recorded. Lab None recorded. Referral None recorded. Procedures None recorded. Surgeries None recorded. Imaging None recorded. Vitals 04/17/2021 05:00PM ESTABLISHED [id number] Height Weight BMI Blood Pressure 65 in [...]
--- OUTSIDE RECORDS SUMMARY | 2021-09-08 21:44 | CCD | Continuity of Care Document ---
Author Author Jaxson CAMEJO M.D. Organization Unknown Address [address] [place] [phone] Phone [phone] Care Team Providers Care Disability Representative Name Role Phone Karen David M.D. AUTM [phone] Problems Description No Information Available Social History Type Date Description Comments Sex Unknown Allergies and adverse reactions Description No Information Available Medications Active Medications SIG Qnty Indications Ordering Provide r Date Zonisamide 25mg Capsules 1 tab by mouth nightly x 1 week, then 1 tab twice a day x 1 week, then 1 tab morning and 2 tabs nightly 42rigo Camejo M.D. 06/11/2021 Zonisamide 50mg Capsules 1 by mouth twice a day 60rigo Camejo M.D. 06/11/2021 Immunizations Description No Information Available Vital Signs Description No Information Available Results Description No Information Available Procedures Date Code Description Status 06/15/2021 64738 MRI Brain W/O Contrast Completed 06/15/2021 11436 MRI Brain W/O Contrast Completed 06/15/2021 51642 MRI Brain W/O Contrast Completed 06/09/2021 35676 EEG Recording Awake & Asleep Com pleted 06/09/2021 78080 EEG Recording Awake & Asleep Com pleted 04/30/2021 64327 Office/Outpatient New Moderate M DM 45-59 Minutes Completed Medical Devices Description No Information Available Encounters Type Date Location Provider Dx Diagnosis Office Visit 04/30/2021 3:00p [place]ame[place] M.[place]. R42 Dizziness and giddiness G47.00 Insomnia, unspecified G43.809 Other migraine, not intracta ble, without status migrainosus I95.1 Orthostatic hypotension Assessments Date Code Description Provider 06/15/2021 G43.809 Other migraine, not intractable, without [...] pm - Ans/VS at Main office - [place] Functional Status Description No Information Available Mental Status Description No Information Available Referrals Refer to Reason for Referral Status Appt Date Created
--- OUTSIDE RECORDS SUMMARY | 2021-09-08 21:44 | CCD | Continuity of Care Document ---
Author Author Jaxson ANGLIN V Organization Unknown Address [address] [place] [address] Phone [phone] Care Team Providers Care Child Protection Specialist Name Role Phone Karen David M.D. AUTM [phone] Problems Description No Information Available Social History Type Date Description Comments Sex Unknown Allergies, Adverse Reactions, Alerts Description No Information Available Medications Active Medications SIG Qnty Indications Ordering Provide r Date Zonisamide 25mg Capsules 1 tab by mouth nightly x 1 week, then 1 tab twice a day x 1 week, then 1 tab morning and 2 tabs nightly 42caps Becky Camejo M.D. 06/11/2021 Zonisamide 50mg Capsules 1 by mouth twice a day 60caps Becky Camejo M.D. 06/11/2021 Immunizations Description No Information Available Vital Signs Description No Information Available Results Description No Information Available Procedures Date Code Description Status 06/15/2021 25423 MRI Brain W/O Contrast Completed 06/15/2021 99192 MRI Brain W/O Contrast Completed 06/15/2021 30201 MRI Brain W/O Contrast Completed 06/09/2021 58198 EEG Recording Awake & Asleep Com pleted 06/09/2021 10503 EEG Recording Awake & Asleep Com pleted 04/30/2021 79402 Office/Outpatient New Moderate M DM 45-59 Minutes Completed Medical Devices Description No Information Available Encounters Type Date Location Provider Dx Diagnosis Office Visit 04/30/2021 3:00p Main office - Becky Camejo M.D. R42 Dizziness and giddiness [...] Appointment(s):* 08/14/2021 1:45 pm - Ans/VS at [facility] * 07/07/2021 10:15 am - Becky Camejo M.D. at [facility] Functional Status Description No Information Available Mental Status Description No Information Available Referrals Refer to Reason for Referral Status Appt Date Created
--- OUTSIDE RECORDS SUMMARY | 2021-09-08 21:45 | CCD ---
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 Name Role Phone Kesha Cedeno MD Unavailable Unavailable Kesha Cedeno MD Unavailable Unavailable Kesha Cedeno MD Unavailable Unavailable Kesha Cedeno MD Unavailable Unavailable Kesha Cedeno MD Unavailable Unavailable Kesha Cedeno MD Unavailable Unavailable Kesha Cedeno MD Unavailable Unavailable Kesha Cedeno MD Unavailable Unavailable Kesha Cedeno MD Unavailable Unavailable Kesha Cedeno MD Unavailable Unavailable Kesha Cedeno MD Unavailable Unavailable Kesha Cedeno MD Unavailable Unavailable Kesha Cedeno MD Unavailable Unavailable Kesha Cedeno MD Unavailable Unavailable Kesha Cedeno MD Unavailable Unavailable Kesha Cedeno MD Unavailable Unavailable Kesha Cedeno MD Unavailable Unavailable Kesha Cedeno MD Unavailable Unavailable Kesha Cedeno MD Unavailable Unavailable Kesha Cedeno MD Unavailable Unavailable Kesha Cedeno MD Unavailable Unavailable Kesha Cedeno MD Unavailable Unavailable Kesha Cedeno MD Unavailable Unavailable Kesha Cedeno MD Unavailable Unavailable Kesha Cedeno MD Unavailable Unavailable Kesha Cedeno MD Unavailable Unavailable Kesha Cedeno MD Unavailable Unavailable Kesha Cedeno MD Unavailable Unavailable Kesha Cedeno MD Unavailable Unavailable Kesha Cedeno MD Unavailable Unavailable Kesha Cedeno MD Unavailable Unavailable Kesha Cedeno MD Unavailable Unavailable Kesha Cedeno MD Unavailable Unavailable Kesha Cedeno MD Unavailable Unavailable Kesha Cedeno MD Unavailable Unavailable Kesha Cedeno MD Unavailable Unavailable Kesha Cedeno MD Unavailable Unavailable Kesha Cedeno MD Unavailable Unavailable Kesha Cedeno MD Unavailable Unavailable Kesha Cedeno MD Unavailable Unavailable Kesha Cedeno MD Unavailable Unavailable Kesha Cedeno MD Unavailable Unavailable Kesha Cedeno MD Unavailable Unavailable Kesha Cedeno MD Unavailable Unavailable Kesha Cedeno MD Unavailable Unavailable Kesha Cedeno MD Unavailable Unavailable Kesha Cedeno MD Unavailable Unavailable Kesha Cedeno MD Unavailable Unavailable Kesha Cedeno MD Unavailable Unavailable Kesha Cedeno MD Unavailable Unavailable Kesha Cedeno MD Unavailable Unavailable Kesha Cedeno MD Unavailable Unavailable Kesha Cedeno MD Unavailable Unavailable Kesha Cedeno MD Unavailable Unavailable Kesha Cedeno MD Unavailable Unavailable Kesha Cedeno MD Unavailable Unavailable Kesha Cedeno MD Unavailable Unavailable Kesha Cedeno MD Unavailable Unavailable Kesha Cedeno MD Unavailable Unavailable Kesha Cedeno MD Unavailable Unavailable Kesha Cedeno MD Unavailable Unavailable Kesha Cedeno MD Unavailable Unavailable Kesha Cedeno MD Unavailable Unavailable Kesha Cedeno MD Unavailable Unavailable Kesha Cedeno MD Unavailable Unavailable Kesha Cedeno MD Unavailable Unavailable Kesha Cedeno MD Unavailable Unavailable Kesha Cedeno MD Unavailable Unavailable Kesha Cedeno MD Unavailable Unavailable Kesha Cedeno MD Unavailable Unavailable Kesha Cedeno MD Unavailable Unavailable Kesha Cedeno MD Unavailable Unavailable Kesha Cedeno MD Unavailable Unavailable Kesha Cedeno MD Unavailable Unavailable Kesha Cedeno MD Unavailable Unavailable Kesha Cedeno MD Unavailable Unavailable Kesha Cedeno MD Unavailable Unavailable Kesha Cedeno MD Unavailable Unavailable Kesha Cedeno MD Unavailable Unavailable Kesha Cedeno MD Unavailable Unavailable Kesha Cedeno MD Unavailable Unavailable Kesha Cedeno MD Unavailable Unavailable Kesha Cedeno MD Unavailable Unavailable Kesha Cedeno MD Unavailable Unavailable Kesha Cedeno MD Unavailable Unavailable Kesha Cedeno MD Unavailable Unavailable Kesha Cedeno MD Unavailable Unavailable Kesha Cedeno MD Unavailable Unavailable Kesha Cedeno MD Unavailable Unavailable Kesha Cedeno MD Unavailable Unavailable Kesha Cedeno MD Unavailable Unavailable Kesha Cedeno MD Unavailable Unavailable Kesha Cedeno MD Unavailable Unavailable Kesha Cedeno MD Unavailable Unavailable Raine Moctezuma Unavailable [phone] Joann, Angela Unavailable Unavailable Joann, Angela Unavailable Unavailable Joann, Angela Unavailable Unavailable Joann, Angela Unavailable Unavailable Joann, Angela Unavailable Unavailable Joann, Angela Unavailable Unavailable Joann, Angela Unavailable Unavailable Joann, Angela Unavailable Unavailable Joann, Angela Unavailable Unavailable Joann, Angela Unavailable Unavailable Joann, Angela Unavailable Unavailable Joann, Angela Unavailable Unavailable Joann, Angela Unavailable Unavailable Joann, Angela Unavailable Unavailable Joann, Angela Unavailable Unavailable Joann, Angela Unavailable Unavailable Joann, Angela Unavailable Unavailable Joann, Angela Unavailable Unavailable Joann, Angela Unavailable Unavailable Joann, Angela Unavailable Unavailable Joann, Angela Unavailable Unavailable Joann, Angela Unavailable Unavailable Joann, Angela Unavailable Unavailable Joann, Angela Unavailable Unavailable Joann, Angela Unavailable Unavailable Joann, Angela Unavailable Unavailable Joann, Angela Unavailable Unavailable Joann, Angela Unavailable Unavailable Kathy-Centner, Heather Unavailable Unavailable Kathy-Centner, Heather Unavailable Unavailable Kathy-Centner, Heather Unavailable Unavailable Kathy-Centner, Heather Unavailable Unavailable Kathy-Centner, Heather Unavailable Unavailable Kathy-Centner, Heather Unavailable Unavailable Kathy-Centner, Heather Unavailable Unavailable Kathy-Centner, Heather Unavailable Unavailable Kathy-Centner, Heather Unavailable Unavailable Kathy-Centner, Heather Unavailable Unavailable Kathy-Centner, Heather Unavailable Unavailable DANUTA, MALA MD Unavailable Unavailable DANUTA, MALA MD Unavailable Unavailable DANUTA, MALA MD Unavailable Unavailable DANUTA, MALA MD Unavailable Unavailable DANUTA, MALA MD Unavailable Unavailable DANUTA, MALA MD Unavailable Unavailable DANUTA, MALA MD Unavailable Unavailable DANUTA, MALA MD Unavailable Unavailable DANUTA, MALA MD Unavailable Unavailable DANUTA, MALA MD Unavailable Unavailable DANUTA, MALA MD Unavailable Unavailable DANUTA, MALA MD Unavailable Unavailable DANUTA, MALA MD Unavailable Unavailable DANUTA, MALA MD Unavailable Unavailable DANUTA, MALA MD Unavailable Unavailable DANUTA, MALA MD Unavailable Unavailable DANUTA, MALA MD Unavailable Unavailable DANUTA, MALA MD Unavailable Unavailable DANUTA, MALA MD Unavailable Unavailable DANUTA, MALA MD Unavailable Unavailable DANUTA, MALA MD Unavailable Unavailable DANUTA, MALA MD Unavailable Unavailable DANUTA, MALA MD Unavailable Unavailable DANUTA, MALA MD Unavailable Unavailable DANUTA, MALA MD Unavailable Unavailable DANUTA, MALA MD Unavailable Unavailable DANUTA, MALA MD Unavailable Unavailable DANUTA, MALA MD Unavailable Unavailable DANUTA, MALA MD Unavailable Unavailable DANUTA, MALA MD Unavailable Unavailable DANUTA, MALA MD Unavailable Unavailable DANUTA, MALA MD Unavailable Unavailable DANUTA, MALA MD Unavailable Unavailable DANUTA, MALA MD Unavailable Unavailable DANUTA, MALA MD Unavailable Unavailable DANUTA, MALA MD Unavailable Unavailable DANUTA, MALA MD Unavailable Unavailable DANUTA, MALA MD Unavailable Unavailable DANUTA, MALA MD Unavailable Unavailable DANUTA, MALA MD Unavailable Unavailable DANUTA, MALA MD Unavailable Unavailable DANUTA, MALA MD Unavailable Unavailable DANUTA, MALA MD Unavailable Unavailable Seth, A Daisy AIRCRAFT POWERPLANT REPAIRER Unavailable Unavailable Seth, A Daisy AIRCRAFT POWERPLANT REPAIRER Unavailable Unavailable Seth, A Daisy AIRCRAFT POWERPLANT REPAIRER Unavailable Unavailable Seth, A Daisy AIRCRAFT POWERPLANT REPAIRER Unavailable Unavailable Seth, A Daisy AIRCRAFT POWERPLANT REPAIRER Unavailable Unavailable Seth, A Daisy AIRCRAFT POWERPLANT REPAIRER Unavailable Unavailable Seth, A Daisy AIRCRAFT POWERPLANT REPAIRER Unavailable Unavailable Seth, A Daisy AIRCRAFT POWERPLANT REPAIRER Unavailable Unavailable Seth, A Daisy AIRCRAFT POWERPLANT REPAIRER Unavailable Unavailable Seth, A Daisy AIRCRAFT POWERPLANT REPAIRER Unavailable Unavailable Seth, A Daisy AIRCRAFT POWERPLANT REPAIRER Unavailable Unavailable Seth, A Daisy AIRCRAFT POWERPLANT REPAIRER Unavailable Unavailable Seth, A Daisy AIRCRAFT POWERPLANT REPAIRER Unavailable Unavailable Seth, A Daisy AIRCRAFT POWERPLANT REPAIRER Unavailable Unavailable Seth, A Daisy AIRCRAFT POWERPLANT REPAIRER Unavailable Unavailable Seth, A Daisy AIRCRAFT POWERPLANT REPAIRER Unavailable Unavailable Seth, A Daisy AIRCRAFT POWERPLANT REPAIRER Unavailable Unavailable Seth, A Daisy AIRCRAFT POWERPLANT REPAIRER Unavailable Unavailable Seth, A Daisy AIRCRAFT POWERPLANT REPAIRER Unavailable Unavailable Seth, A Daisy AIRCRAFT POWERPLANT REPAIRER Unavailable Unavailable Seth, A Daisy AIRCRAFT POWERPLANT REPAIRER Unavailable Unavailable Seth, A Daisy AIRCRAFT POWERPLANT REPAIRER Unavailable Unavailable Seth, A Daisy AIRCRAFT POWERPLANT REPAIRER Unavailable Unavailable Seth, A Daisy AIRCRAFT POWERPLANT REPAIRER Unavailable Unavailable Seth, A Daisy AIRCRAFT POWERPLANT REPAIRER Unavailable Unavailable Seth, A Daisy AIRCRAFT POWERPLANT REPAIRER Unavailable Unavailable Seth, A Daisy AIRCRAFT POWERPLANT REPAIRER Unavailable Unavailable Seth, A Daisy AIRCRAFT POWERPLANT REPAIRER Unavailable Unavailable Seth, A Daisy AIRCRAFT POWERPLANT REPAIRER Unavailable Unavailable Seth, A Daisy AIRCRAFT POWERPLANT REPAIRER Unavailable Unavailable Seth, A Daisy AIRCRAFT POWERPLANT REPAIRER Unavailable Unavailable Re-disclosure Warning The records that you are about to access may contain information from federally-assisted alcohol or drug abuse programs. If such information is present, then the following federally mandated warning applies: This information has been disclosed to you from records protected by federal confidentiality rules (42 CFR part 2). The federal rules prohibit you from making any further disclosure of this information unless further disclosure is expressly permitted by the written consent of the person to whom it pertains or as otherwise permitted by 42 CFR part 2. A general authorization for the release of medical or other information is NOT sufficient for this purpose. The Federal rules restrict any use of the information to criminally investigate or prosecute any alcohol or drug abuse patient.The records that you are about to access may contain highly sensitive health information, the redisclosure of which is protected by Article 27-F of the [facility] Public Health law. If you continue you may have access to information: Regarding HIV / AIDS; Provided by facilities licensed or operated by the [facility] Office of Mental Health; or Provided by the [facility] Office for People With Developmental Disabilities. If such information is present, then the following [facility] mandated warning applies: This information has been disclosed to you from confidential records which are protected by state law. State law prohibits you from making any further disclosure of this information without the specific written consent of the person to whom it pertains, or as otherwise permitted by law. Any unauthorized further disclosure in violation of state law may result in a fine or detention sentence or both. A general authorization for the release of medical or other information is NOT sufficient authorization for further disc losure. Allergies and Adverse Reactions Type Description Substance Reaction Status Data Source(s ) Allergy to substance Allergy to substance Allergy to substance [place] ([facility]) Allergy to substance Allergy to substance Allergy to substance [place] ([facility]) Encounters Encounter Providers Location Date Indications Data Source(s ) Raine Moctezuma [facility] [address] [place] [phone], Ph. Attender: Raine Moctezuma [facility] Medical 09/08/2021 12:00:00 AM EST [place] ([facility]) Jose Cedeno MD: [address] [place] [phone], Ph. Attender: Jose Cedeno MD [facility] Medical 08/20/2021 12:00:00 AM EST [facility] ([facility]) Jose Cedeno MD: [address] [place] [phone], Ph. Attender: Jose Cedeno MD [facility] Medical 08/20/2021 12:00:00 AM EST [facility] ([facility]) Karen David MD: [address] [place] [address], Ph. Attender: Karen David [facility] Medical 08/12/2021 12:00:00 AM EST [place] ([facility]) Karen David MD: [address] [place] [address], Ph. Attender: Karen David [facility] Medical 08/12/2021 12:00:00 AM EST [facility] ([facility]) Jose Cedeno MD: [address] [place] [address], Ph. Attender: Jose Cedeno MD [facility] Medical 07/31/2021 12:00:00 AM EDT [facility] ([facility]) Jose Cedeno MD: [address] [place] [address], Ph. Attender: Jose Cedeno MD [facility] Medical 07/31/2021 12:00:00 AM EDT [facility] ([facility]) Jose Cedeno MD: [address] [place] [address], Ph. Attender: Jose Cedeno MD [facility] Medical 07/31/2021 12:00:00 AM EDT [facility] ([facility]) Raine Moctezuma LMSW: [address] [place] [address], Ph. Attender: Raine Moctezuma [facility] Medical 07/28/2021 12:00:00 AM EDT [place] ([facility]) Raine Moctezuma LMSW: [address], [place] [address], Ph. Attender: Raine Moctezuma [facility] Medical 07/28/2021 12:00:00 AM EDT [place] ([facility]) Raine Moctezuma, [facility]: [address], [place] [address], Ph. Attender: Raine Moctezuma [facility] Medical 07/28/2021 12:00:00 AM EDT [place] ([facility]) Raine Moctezuma, [facility]: [address], [place] [address], Ph. Attender: Raine Moctezuma [facility] Medical 07/28/2021 12:00:00 AM EDT [facility]) Raine Moctezuma, [facility]: [address], [place] [address], Ph. Attender: Raine Moctezuma [facility] Medical 07/14/2021 12:00:00 AM EDT [facility]) Raine Moctezuma, [facility]: [address], [place] [address], Ph. Attender: Raine Moctezuma [facility] Medical 07/14/2021 12:00:00 AM EDT [place] ([facility]) Raine Moctezuma, [facility]: [address], [place] [address], Ph. Attender: Raine Moctezuma [facility] Medical 07/14/2021 12:00:00 AM EDT [place] ([facility]) Raine Moctezuma, [facility]: [address], [place] [address], Ph. Attender: Raine Moctezuma [facility] Medical 07/14/2021 12:00:00 AM EDT [place] ([facility]) Raine Moctezuma, [facility]: [address] [place] [address], Ph. Attender: Raine Moctezuma [facility] Medical 07/14/2021 12:00:00 AM EDT [place] ([facility]) Office Visit Attender: MALA TIPTON MD Main office - [facility] 07/07/2021 10:15:00 AM EDT [facility] ([facility], ) Raine Moctezuma, [facility]: [address] [place] [address], Ph. Attender: Raine Moctezuma [facility] Medical 06/30/2021 12:00:00 AM EDT [place] ([facility]) [facility] [address] [place] [address], Ph. Attender: Raine Moctezuma [facility] Medical 06/30/2021 12:00:00 AM EDT [place] ([facility]) Raine Moctezuma, [facility]: [address] [place] [address], Ph. Attender: Raine Terrelltracy [facility] Medical 06/30/2021 12:00:00 AM EDT [place] ([facility]) Raine Moctezuma, [facility]: [address] [place] [address], Ph. Attender: Raine Terrelltracy [facility] Medical 06/30/2021 12:00:00 AM EDT [place] ([facility]) [facility] [address] [place] [address], Ph. Attender: Raine Terrelltracy [facility] Medical 06/30/2021 12:00:00 AM EDT [facility]) Raine Moctezuma, [facility]: [address], [place] [address], Ph. Attender: Raine Moctezuma [facility] Medical 06/30/2021 12:00:00 AM EDT [place] ([facility]) Raine Moctezuma, [facility]: [address], [place] [address], Ph. Attender: Raine Moctezuma [facility] Medical 06/16/2021 12:00:00 AM EDT [facility]) Raine Moctezuma, [facility]: [address], [place] [address], Ph. Attender: Raine Moctezuma [facility] Medical 06/16/2021 12:00:00 AM EDT [facility]) Raine Moctezuma, [facility]: [address], [place] [address], Ph. Attender: Raine Moctezuma [facility] Medical 06/16/2021 12:00:00 AM EDT [place] ([facility]) [facility]: [address], [place] [address], Ph. Attender: Raine Moctezuma [facility] 06/16/2021 12:00:00 AM EDT [place] ([facility]) Raine Moctezuma, [facility]: [address], [place] [address], Ph. Attender: Raine Moctezuma [facility] Medical 06/16/2021 12:00:00 AM EDT [facility]) Raine Terrelltracy [facility]: [address], [place] [address], Ph. Attender: Raine Moctezuma [facility] Medical 06/16/2021 12:00:00 AM EDT [facility]) Raine Moctezuma, [facility]: [address] [place] [address], Ph. Attender: Raine Moctezuma [facility] Medical 06/16/2021 12:00:00 AM EDT [place] ([facility]) [facility] [address] [place] [address], Ph. Attender: Raine Moctezuma [facility] Medical 06/03/2021 12:00:00 AM EDT [facility]) [facility]: [address] [place] [address], Ph. Attender: Raine Moctezuma [facility] Medical 06/03/2021 12:00:00 AM EDT [facility]) [facility]: [address] [place] [address], Ph. Attender: Raine Moctezuma [facility] Medical 06/03/2021 12:00:00 AM EDT [place] ([facility]) [facility] [address] [place] [address], Ph. Attender: Raine Moctezuma [facility] Medical 06/03/2021 12:00:00 AM EDT [facility]: [address] [place] [address], Ph. Attender: Raine Moctezuma [facility] Medical 06/03/2021 12:00:00 AM EDT [place] ([facility]) Raine Moctezuma, [facility]: [address], [place] [address], Ph. Attender: Raine Moctezuma [facility] Medical 06/03/2021 12:00:00 AM EDT [place] ([facility]) Raine Moctezuma, [facility]: [address], [place] [address], Ph. Attender: Raine Moctezuma [facility] Medical 06/03/2021 12:00:00 AM EDT [place] ([facility]) Raine Moctezuma, [facility]: [address], [place] [address], Ph. Attender: Raine Moctezuma [facility] Medical 06/03/2021 12:00:00 AM EDT [place] ([facility]) Outpatient Attender: MALA TIPTON MD Main office - [facility] 04/30/2021 03:00:00 PM EDT [facility] ([facility], ) Karen David MD: [address], [facility] [place] [place] [address], Ph. Attender: Karen David [facility] Medical 04/17/2021 12:00:00 AM EDT [place] ([facility]) Karen David MD: [address], [place] [address], Ph. Attender: Karen David [facility] Medical 04/17/2021 12:00:00 AM EDT [place] ([facility]) Karen David MD: [address], [place] [address], Ph. Attender: Karen David [facility] Medical 04/17/2021 12:00:00 AM EDT [place] ([facility]) Karen David MD: [address], [place] [address], Ph. Attender: Karen David [facility] Medical 04/17/2021 12:00:00 AM EDT [place] ([facility]) Karen David MD: [address], [place] [address], Ph. Attender: Karen David [facility] Medical 04/17/2021 12:00:00 AM EDT [place] ([facility]) Karen David MD: [address], [place] [address], Ph. Attender: Karen David [facility] Medical 04/17/2021 12:00:00 AM EDT [place] ([facility]) Karen David MD: [address], [place] [address], Ph. Attender: Karen David [facility] Medical 04/17/2021 12:00:00 AM EDT [place] ([facility]) Karen David MD: [address], [place] [address], Ph. Attender: Karen David [facility] Medical 04/17/2021 12:00:00 AM EDT [place] ([facility]) Karen David MD: [address], [place] [address], Ph. Attender: Karen David [facility] Medical 04/17/2021 12:00:00 AM EDT [place] ([facility]) Karen David MD: [address], [place] [address], Ph. Attender: Karen David [facility] Medical 03/17/2021 12:00:00 AM EDT [place] ([facility]) Karen David MD: [address], [place] [address], Ph. Attender: Karen David [facility] Medical 03/17/2021 12:00:00 AM EDT [place] ([facility]) Karen David MD: [address], [place] [address], Ph. Attender: Karen David [facility] Medical 03/17/2021 12:00:00 AM EDT [place] ([facility]) Karen David MD: [address], [place] [address], Ph. Attender: Karen David [facility] Medical 03/17/2021 12:00:00 AM EDT [facility] ([facility]) Karen David MD: [address], [place] [address], Ph. Attender: Karen David [facility] Medical 03/17/2021 12:00:00 AM EDT [facility] ([facility]) Karen David MD: [address], [place] [address], Ph. Attender: Karen David [facility] Medical 03/17/2021 12:00:00 AM EDT [facility] ([facility]) Karen David MD: [address], [place] [address], Ph. Attender: Karen David [facility] Medical 03/17/2021 12:00:00 AM EDT [facility] ([facility]) Karen David MD: [address], [place] [address], Ph. Attender: Karen David [facility] Medical 03/17/2021 12:00:00 AM EDT [facility] ([facility]) Karen David MD: [address], [place] [address], Ph. Attender: Karen David [facility] Medical 03/17/2021 12:00:00 AM EDT [place] ([facility]) Karen David MD: [address], [place] [address], Ph. Attender: Karen David [facility] Medical 03/17/2021 12:00:00 AM EDT [facility] ([facility]) Daisy Ann [facility]: [address], [place] [address], Ph. Attender: Daisy Ann [facility] Medical 03/06/2021 12:00:00 AM EDT [facility] ([facility]) GIANA Dave: [address], [place] [address], Ph. Attender: Daisy Ann [facility] Medical 03/06/2021 12:00:00 AM EDT [place] ([facility]) GIANA Dave: [address], [place] [address], Ph. Attender: Daisy Ann [facility] Medical 03/06/2021 12:00:00 AM EDT [facility] ([facility]) Daisy Ann [facility]: [address], [place] [address], Ph. Attender: Daisy Ann [facility] Medical 03/06/2021 12:00:00 AM EDT [facility] ([facility]) Daisy Ann [facility]: [address], [place] [address], Ph. Attender: Daisy Ann [facility] Medical 03/06/2021 12:00:00 AM EDT [facility]) Daisy Ann [facility]: [address], [place] [address], Ph. Attender: Daisy Ann [facility] Medical 03/06/2021 12:00:00 AM EDT [place] ([facility]) Daisy Ann [facility]: [address], [place] [address], Ph. Attender: Daisy Ann [facility] Medical 03/06/2021 12:00:00 AM EDT [facility] ([facility]) Daisy Ann [facility]: [address], [place] [address], Ph. Attender: Daisy Ann [facility] Medical 03/06/2021 12:00:00 AM EDT [facility]) Daisy Ann [facility]: [address], [place] [address], Ph. Attender: Daisy Ann [facility] Medical 03/06/2021 12:00:00 AM EDT [facility] ([facility]) Daisy Ann [facility]-: [address], [place] [address], Ph. Attender: Daisy Ann [facility] Medical 03/06/2021 12:00:00 AM EDT [facility] ([facility]) Karen David MD: [address], [place] [address], Ph. Attender: Karen David [facility] Medical 02/25/2021 12:00:00 AM EDT [place] ([facility]) Karen David MD: [address], [place] [address], Ph. Attender: Karen David [facility] Medical 02/25/2021 12:00:00 AM EDT [place] ([facility]) Karen David MD: [address], [place] [address], Ph. Attender: Karen David [facility] Medical 02/25/2021 12:00:00 AM EDT [facility] ([facility]) Karen David MD: [address], [place] [address], Ph. Attender: Karen David [facility] Medical 02/25/2021 12:00:00 AM EDT [facility] ([facility]) Karen David MD: [address], [place] [address], Ph. Attender: Karen David [facility] Medical 02/25/2021 12:00:00 AM EDT [facility] ([facility]) Karen David MD: [address], [place] [address], Ph. Attender: Karen David [facility] Medical 02/25/2021 12:00:00 AM EDT [facility] ([facility]) Karen David MD: [address], [place] [address], Ph. Attender: Karen David [facility] Medical 02/25/2021 12:00:00 AM EDT [facility] ([facility]) Karen David MD: [address], [place] [address], Ph. Attender: Karen David [facility] Medical 02/25/2021 12:00:00 AM EDT [facility] ([facility]) Karen David MD: [address], [place] [address], Ph. Attender: Karen David [facility] Medical 02/25/2021 12:00:00 AM EDT [facility] ([facility]) Karen David MD: [address], [place] [address], Ph. Attender: Karen David [facility] Medical 02/25/2021 12:00:00 AM EDT [facility] ([facility]) Karen David MD: [address], [place] [address], Ph. Attender: Karen David [facility] Medical 02/25/2021 12:00:00 AM EDT [facility] ([facility]) Jose Cedeno MD: [address] [place] [address], Ph. Attender: Jose Cedeno MD [facility] Medical 01/08/2021 12:00:00 AM EDT [facility] ([facility]) Jose Cedeno MD: [address] [place] [address], Ph. Attender: Jose Cedeno MD [facility] Medical 01/08/2021 12:00:00 AM EDT [facility] ([facility]) Jose Cedeno MD: [address] [place] [address], Ph. Attender: Jose Cedeno MD [facility] Medical 01/08/2021 12:00:00 AM EDT [facility] ([facility]) Jose Cedeno MD: [address] [place] [address], Ph. Attender: Jose Cedeno MD [facility] Medical 01/08/2021 12:00:00 AM EDT [facility] ([facility]) Jose Cedeno MD: [address] [place] [address], Ph. Attender: Jose Cedeno MD [facility] Medical 01/08/2021 12:00:00 AM EDT [facility] ([facility]) Jose Cedeno MD: [address] [place] [address], Ph. Attender: Jose Cedeno MD [facility] Medical 01/08/2021 12:00:00 AM EDT [facility] ([facility]) Jose Cedeno MD: [address] [place] [address], Ph. Attender: Jose Cedeno MD [facility] Medical 01/08/2021 12:00:00 AM EDT [facility] ([facility]) Jose Cedeno MD: [address] [place] [address], Ph. Attender: Jose Cedeno MD [facility] Medical 01/08/2021 12:00:00 AM EDT [facility] ([facility]) Jose Cedeno MD: [address] [place] [address], Ph. Attender: Jose Cedeno MD [facility] Medical 01/08/2021 12:00:00 AM EDT [facility] ([facility]) Jose Cedeno MD: [address] [place] [address], Ph. Attender: Jose Cedeno MD [facility] Medical 01/08/2021 12:00:00 AM EDT [facility] ([facility]) Jose Cedeno MD: [address] [place] [address], Ph. Attender: Jose Cedeno MD [facility] Medical 01/08/2021 12:00:00 AM EDT [facility] ([facility]) Jose Cedeno MD: [address] [place] [address], Ph. Attender: Jose Cedeno MD [facility] Medical 01/08/2021 12:00:00 AM EDT [facility] ([facility]) Heather Chavez RPA-C: [address] [place] [address], Ph. Attender: Heather Phelps [facility] Medical 12/08/2020 12:00:00 AM EST [facility] ([facility]) MANA StewardC: [address], [place] [address], Ph. [facility]: [facility] Medical 12/08/2020 12:00:00 AM EST [place] ([facility]) Heather Chavez RPA-C: [address], [place] [address], Ph. [facility]: [facility] 12/08/2020 12:00:00 AM EST [place] ([facility]) Heather Chavez RPA-C: [address], [place] [address], Ph. [facility]: [facility] Medical 12/08/2020 12:00:00 AM EST [place] ([facility]) Heather Chavez RPA-C: [address], [place] [address], Ph. Att[facility]: [facility] Medical 12/08/2020 12:00:00 AM EST [facility] ([facility]) Heather Chavez RPA-C: [address], [place] [address], Ph. Attender: Heather Phelps [facility] Medical 12/08/2020 12:00:00 AM EST [place] ([facility]) Heather Chavez RPA-C: [address], [place] [address], Ph. Att[facility]: [facility] Medical 12/08/2020 12:00:00 AM EST [place] ([facility]) Heather Chavez RPA-C: [address], [place] [address], Ph. Att[facility]: [facility] Medical 12/08/2020 12:00:00 AM EST [place] ([facility]) Heather Chavez RPA-C: [address], [place] [address], Ph. [facility]: [facility] 12/08/2020 12:00:00 AM EST [place] ([facility]) Heather Chavez RPA-C: [address], [place] [address], Ph. Attender: [facility] Medical 12/08/2020 12:00:00 AM EST [place] ([facility]) Heather Chavez RPA-C: [address], [place] [address], Ph. Att[facility]: [facility] Medical 12/08/2020 12:00:00 AM EST [place] ([facility]) Heather Chavez RPA-C: [address], [place] [address], Ph. Attender: [facility] Medical 12/08/2020 12:00:00 AM EST [facility] ([facility]) Heather Chavez RPA-C: [address], [place] [address], Ph. [facility]: [facility] 12/08/2020 12:00:00 AM EST [facility] ([facility]) Immunizations Vaccine Date Status Description Data Source(s) COVID-19, mRNA, LNP-S, PF, 100 mcg/0.5 mL dose (Modern a) 08/20/2021 10:38:56 AM EST completed .25 mL [place] ([facility]) COVID-19, mRNA, LNP-S, PF, 100 mcg/0.5 mL dose (Modern a) 08/20/2021 10:38:56 AM EST completed .25 mL [place] ([facility]) COVID-19 VACCINE Moderna 08/20/2021 12:00:00 AM EST completed [facility] Vaccine Series Complete: YESThis Data wa s Submitted to [facility] Via [employer]. Td (adult) preservative free 02/25/2021 05:59:00 PM EDT complete d .5 mL [facility] ([facility]) Td (adult) preservative free 02/25/2021 05:59:00 PM EDT complete d .5 mL [facility] ([facility]) Td (adult) preservative free 02/25/2021 05:59:00 PM EDT complete d .5 mL [facility] ([facility]) Td (adult) preservative free 02/25/2021 05:59:00 PM EDT complete d .5 mL [facility] ([facility]) Td (adult) preservative free 02/25/2021 05:59:00 PM EDT complete d .5 mL [facility] ([facility]) Td (adult) preservative free 02/25/2021 05:59:00 PM EDT complete d .5 mL [facility] ([facility]) Td (adult) preservative free 02/25/2021 05:59:00 PM EDT complete d .5 mL [facility] ([facility]) Td (adult) preservative free 02/25/2021 05:59:00 PM EDT complete d .5 mL [facility] ([facility]) Td (adult) preservative free 02/25/2021 05:59:00 PM EDT complete d .5 mL [facility] ([facility]) Td (adult) preservative free 02/25/2021 05:59:00 PM EDT complete d .5 mL [facility] ([facility]) Td (adult) preservative free 02/25/2021 05:59:00 PM EDT complete d .5 mL [facility] ([facility]) COVID-19, mRNA, LNP-S, PF, 100 mcg/0.5 mL dose (Modern a) 01/08/2021 02:23:10 PM EDT completed .5 mL [facility] ([facility]) COVID-19, mRNA, LNP-S, PF, 100 mcg/0.5 mL dose (Modern a) 01/08/2021 02:23:10 PM EDT completed .5 mL [facility] ([facility]) COVID-19, mRNA, LNP-S, PF, 100 mcg/0.5 mL dose 01/08/2021 02 :23:10 PM EDT completed .5 mL [facility] ([facility]) COVID-19, mRNA, LNP-S, PF, 100 mcg/0.5 mL dose 01/08/2021 02 :23:10 PM EDT completed .5 mL [place] ([facility]) COVID-19, mRNA, LNP-S, PF, 100 mcg/0.5 mL dose 01/08/2021 02 :23:10 PM EDT completed .5 mL [facility] ([facility]) COVID-19, mRNA, LNP-S, PF, 100 mcg/0.5 mL dose 01/08/2021 02 :23:10 PM EDT completed .5 mL [place] ([facility]) COVID-19, mRNA, LNP-S, PF, 100 mcg/0.5 mL dose 01/08/2021 02 :23:10 PM EDT completed .5 mL [place] ([facility]) COVID-19, mRNA, LNP-S, PF, 100 mcg/0.5 mL dose 01/08/2021 02 :23:10 PM EDT completed .5 mL [place] ([facility]) COVID-19, mRNA, LNP-S, PF, 100 mcg/0.5 mL dose 01/08/2021 02 :23:10 PM EDT completed .5 mL [place] ([facility]) COVID-19, mRNA, LNP-S, PF, 100 mcg/0.5 mL dose 01/08/2021 02 :23:10 PM EDT completed .5 mL [place] ([facility]) COVID-19, mRNA, LNP-S, PF, 100 mcg/0.5 mL dose 01/08/2021 02 :23:10 PM EDT completed .5 mL [place] ([facility]) COVID-19, mRNA, LNP-S, PF, 100 mcg/0.5 mL dose 01/08/2021 02 :23:10 PM EDT completed .5 mL [place] ([facility]) COVID-19 VACCINE Moderna 01/08/2021 12:00:00 AM EDT completed [facility] Vaccine Series Complete: YESThis Data wa s Submitted to [facility] Via [employer]. COVID-19, mRNA, LNP-S, PF, 100 mcg/0.5 mL dose (Modern a) 12/08/2020 04:16:50 PM EST completed .5 mL [place] ([facility]) COVID-19, mRNA, LNP-S, PF, 100 mcg/0.5 mL dose (Modern a) 12/08/2020 04:16:50 PM EST completed .5 mL [place] ([facility]) COVID-19, mRNA, LNP-S, PF, 100 mcg/0.5 mL dose 12/08/2020 04 :16:50 PM EST completed .5 mL [place] ([facility]) COVID-19, mRNA, LNP-S, PF, 100 mcg/0.5 mL dose 12/08/2020 04 :16:50 PM EST completed .5 mL [place] ([facility]) COVID-19, mRNA, LNP-S, PF, 100 mcg/0.5 mL dose 12/08/2020 04 :16:50 PM EST completed .5 mL [place] ([facility]) COVID-19, mRNA, LNP-S, PF, 100 mcg/0.5 mL dose 12/08/2020 04 :16:50 PM EST completed .5 mL [place] ([facility]) COVID-19, mRNA, LNP-S, PF, 100 mcg/0.5 mL dose 12/08/2020 04 :16:50 PM EST completed .5 mL [facility] ([facility]) COVID-19, mRNA, LNP-S, PF, 100 mcg/0.5 mL dose 12/08/2020 04 :16:50 PM EST [facility], mRNA, LNP-S, PF, 100 mcg/0.5 mL dose 12/08/2020 04 :16:50 PM EST [facility] COVID-[facility], mRNA, LNP-S, PF, 100 mcg/0.5 mL dose 12/08/2020 04 :16:50 PM EST completed .5 mL [place] ([facility]) COVID-19, mRNA, LNP-S, PF, 100 mcg/0.5 mL dose 12/08/2020 04 :16:50 PM EST completed .5 mL [place] ([facility]) COVID-19, mRNA, LNP-S, PF, 100 mcg/0.5 mL dose 12/08/2020 04 :16:50 PM EST completed .5 mL [place] ([facility]) COVID-19, mRNA, LNP-S, PF, 100 mcg/0.5 mL dose 12/08/2020 04 :16:50 PM EST completed .5 mL [place] ([facility]) COVID-19 VACCINE Moderna 12/08/2020 12:00:00 AM EST completed [facility] Vaccine Series Complete: NOThis Data was Submitted to [facility] Via [employer]. Medications Medication Brand Name Start Date Product Form Dose Route Admi nistrative Instructions Pharmacy Instructions Status Indications Reaction Description Data Source(s) zonisamide 25 MG Oral Capsule Zonisamide 06/11/2021 12:00:00 AM EDT ORAL completed [facility] ([facility], ) zonisamide 50 MG Oral Capsule Zonisamide 06/11/2021 12:00:00 AM EDT ORAL active [facility] ([facility], ) zonisamide 25 MG Oral Capsule zonisamide 25 mg capsule zonis amide 25 mg capsule completed zonisamide 25 MG Oral Capsule [place] ([facility]) b2 100mg tab TAKE 4 TABLETS BY MOUTH ONCE DAILY completed b2 100mg tab [place] ( [facility]) Amoxicillin 875 MG / Clavulanate 125 MG Oral Tablet [Augmentin] Augmentin 875 mg-125 mg tablet Take 1 tablet every 12 hours by oral route for 14 days. Augmentin 875 mg-125 mg tablet Take 1 tablet every 12 hours by oral route for 14 days. 1 completed amoxici llin 875 MG / clavulanate 125 MG Oral Tablet [Augmentin] [place] ([facility]) Amoxicillin 875 MG / Clavulanate 125 MG Oral Tablet [Augmentin] Augmentin 875 mg-125 mg tablet Take 1 tablet every 12 hours by oral route for 14 days. Augmentin 875 mg-125 mg tablet Take 1 tablet every 12 hours by oral route for 14 days. 1 completed amoxici llin 875 MG / clavulanate 125 MG Oral Tablet [Augmentin] [place] ([facility]) Amoxicillin 875 MG / Clavulanate 125 MG Oral Tablet [Augmentin] Augmentin 875 mg-125 mg tablet Take 1 tablet every 12 hours by oral route for 14 days. Augmentin 875 mg-125 mg tablet Take 1 tablet every 12 hours by oral route for 14 days. 1 completed amoxici llin 875 MG / clavulanate 125 MG Oral Tablet [Augmentin] [facility] ([facility]) Amoxicillin 875 MG / Clavulanate 125 MG Oral Tablet [Augmentin] Augmentin 875 mg-125 mg tablet Take 1 tablet every 12 hours by oral route for 14 days. Augmentin 875 mg-125 mg tablet Take 1 tablet every 12 hours by oral route for 14 days. 1 completed amoxici llin 875 MG / clavulanate 125 MG Oral Tablet [Augmentin] [place] ([facility]) Amoxicillin 875 MG / Clavulanate 125 MG Oral Tablet [Augmentin] Augmentin 875 mg-125 mg tablet Take 1 tablet every 12 hours by oral route for 14 days. Augmentin 875 mg-125 mg tablet Take 1 tablet every 12 hours by oral route for 14 days. 1 completed amoxici llin 875 MG / clavulanate 125 MG Oral Tablet [Augmentin] [facility] ([facility]) zonisamide 25 MG Oral Capsule zonisamide 25 mg capsule zonis amide 25 mg capsule completed zonisamide 25 MG Oral Capsule [facility]) b2 100mg tab TAKE 4 TABLETS BY MOUTH ONCE DAILY completed b2 100mg tab [place] ( [facility]) Amoxicillin 875 MG / Clavulanate 125 MG Oral Tablet [Augmentin] Augmentin 875 mg-125 mg tablet Take 1 tablet every 12 hours by oral route for 14 days. Augmentin 875 mg-125 mg tablet Take 1 tablet every 12 hours by oral route for 14 days. 1 completed amoxici llin 875 MG / clavulanate 125 MG Oral Tablet [Augmentin] [facility] ([facility]) Amoxicillin 875 MG / Clavulanate 125 MG Oral Tablet [Augmentin] Augmentin 875 mg-125 mg tablet Take 1 tablet every 12 hours by oral route for 14 days. Augmentin 875 mg-125 mg tablet Take 1 tablet every 12 hours by oral route for 14 days. 1 completed amoxici llin 875 MG / clavulanate 125 MG Oral Tablet [Augmentin] [facility] ([facility]) Amoxicillin 875 MG / Clavulanate 125 MG Oral Tablet [Augmentin] Augmentin 875 mg-125 mg tablet Take 1 tablet every 12 hours by oral route for 14 days. Augmentin 875 mg-125 mg tablet Take 1 tablet every 12 hours by oral route for 14 days. 1 completed amoxici llin 875 MG / clavulanate 125 MG Oral Tablet [Augmentin] [facility] ([facility]) Amoxicillin 875 MG / Clavulanate 125 MG Oral Tablet [Augmentin] Augmentin 875 mg-125 mg tablet Take 1 tablet every 12 hours by oral route for 14 days. Augmentin 875 mg-125 mg tablet Take 1 tablet every 12 hours by oral route for 14 days. 1 completed amoxici llin 875 MG / clavulanate 125 MG Oral Tablet [Augmentin] [place] ([facility]) Insurance Providers Payer name Policy type / Coverage type Policy ID Covered libertarian ID Covered libertarian's relationship to marin Policy [place] Plan Information BCBS [facility] 020/520 [id number] SP [id number] [place] 020/520 [id number] SP [id number] IRA [facility] MEDICAID [id number] SP [id number] M SELF PAY HMO BLUE [id number] SP [id number] [place] PPO 302/307 [id number] SP [id number] [facility] SHIELD -O/P [id number] [place]BS [place] PPO 302/[id number] SP [id number] MEDICAID [id number] SP [id number] [facility] [id number] 18 [id number] [employer] CLAIMS [id number] [employer] [id number] Problems, Conditions, and Diagnoses Code Display Name Description Problem Type Effective Dates Data Source(s) 069976364 Headache disorder Headache Disorder Problem 08/11 12:00:00 AM [facility] [id number] Headache disorder Headache Disorder Problem 08/11 12:00:00 AM EST [facility] ([facility]) [id number] Depressive disorder Depressive Disorder Problem 0 06/04/2021 12:00:00 AM EDT [facility] ([facility]) [id number] Depressive disorder Depressive Disorder Problem 0 06/04/2021 12:00:00 AM EDT [facility] ([facility]) [id number] Depressive disorder Depressive Disorder Problem 0 06/04/2021 12:00:00 AM EDT [facility] ([facility]) [id number] Depressive disorder Depressive Disorder Problem 0 06/04/2021 12:00:00 AM EDT [facility] ([facility]) [id number] Depressive disorder Depressive Disorder Problem 0 06/04/2021 12:00:00 AM EDT [facility] ([facility]) [id number] Depressive disorder Depressive Disorder Problem 0 06/04/2021 12:00:00 AM EDT [facility] ([facility]) [id number] Depressive disorder Depressive Disorder Problem 0 06/04/2021 12:00:00 AM EDT [facility] ([facility]) [id number] Depressive disorder Depressive Disorder Problem 0 06/04/2021 12:00:00 AM EDT [facility] ([facility]) 4363561 Sinus headache Sinus Headache Problem 03/17/2021 12:00: 00 AM EDT [place] ([facility]) 16462147 Chronic sinusitis Chronic Sinusitis Problem 03/17/2021 12:00:00 AM EDT [facility] ([facility]) 73779210 Hyperlipidemia Hyperlipidemia Problem 03/17/2021 12:00: 00 AM EDT [facility] ([facility]) 43673534 Vitamin D deficiency Vitamin D Deficiency Problem 03/17/2021 12:00:00 AM EDT [facility] ([facility]) 4559660 Sinus headache Sinus Headache Problem 03/17/2021 12:00: 00 AM EDT [facility] ([facility]) 29939637 Chronic sinusitis Chronic Sinusitis Problem 03/17/2021 12:00:00 AM EDT [facility] ([facility]) 16810166 Hyperlipidemia Hyperlipidemia Problem 03/17/2021 12:00: 00 AM EDT [facility] ([facility]) 70129310 Vitamin D deficiency Vitamin D Deficiency Problem 03/17/2021 12:00:00 AM EDT [facility] ([facility]) 5720854 Sinus headache Sinus Headache Problem 03/17/2021 12:00: 00 AM EDT [place] ([facility]) 18080511 Chronic sinusitis Chronic Sinusitis Problem 03/17/2021 12:00:00 AM EDT [place] ([facility]) [id number] Hyperlipidemia Hyperlipidemia Problem 03/17/2021 12:00: 00 AM EDT [place] ([facility]) [id number] Vitamin D deficiency Vitamin D Deficiency Problem 03/17/2021 12:00:00 AM EDT [place] ([facility]) [id number] Sinus headache Sinus Headache Problem 03/17/2021 12:00: 00 AM EDT [place] ([facility]) [id number] Chronic sinusitis Chronic Sinusitis Problem 03/17/2021 12:00:00 AM EDT [place] ([facility]) [id number] Hyperlipidemia Hyperlipidemia Problem 03/17/2021 12:00: 00 AM EDT [place] ([facility]) [id number] Vitamin D deficiency Vitamin D Deficiency Problem 03/17/2021 12:00:00 AM EDT [place] ([facility]) [id number] Sinus headache Sinus Headache Problem 03/17/2021 12:00: 00 AM EDT [place] ([facility]) [id number] Chronic sinusitis Chronic Sinusitis Problem 03/17/2021 12:00:00 AM EDT [place] ([facility]) [id number] Hyperlipidemia Hyperlipidemia Problem 03/17/2021 12:00: 00 AM EDT [place] ([facility]) [id number] Vitamin D deficiency Vitamin D Deficiency Problem 03/17/2021 12:00:00 AM EDT [place] ([facility]) [id number] Sinus headache Sinus Headache Problem 03/17/2021 12:00: 00 AM EDT [place] ([facility]) [id number] Chronic sinusitis Chronic Sinusitis Problem 03/17/2021 12:00:00 AM EDT [place] ([facility]) [id number] Hyperlipidemia Hyperlipidemia Problem 03/17/2021 12:00: 00 AM EDT [place] ([facility]) [id number] Vitamin D deficiency Vitamin D Deficiency Problem 03/17/2021 12:00:00 AM EDT [place] ([facility]) [id number] Sinus headache Sinus Headache Problem 03/17/2021 12:00: 00 AM EDT [place] ([facility]) [id number] Chronic sinusitis Chronic Sinusitis Problem 03/17/2021 12:00:00 AM EDT [place] ([facility]) [id number] Hyperlipidemia Hyperlipidemia Problem 03/17/2021 12:00: 00 AM EDT [place] ([facility]) [id number] Vitamin D deficiency Vitamin D Deficiency Problem 03/17/2021 12:00:00 AM EDT [place] ([facility]) [id number] Sinus headache Sinus Headache Problem 03/17/2021 12:00: 00 AM EDT [place] ([facility]) [id number] Chronic sinusitis Chronic Sinusitis Problem 03/17/2021 12:00:00 AM EDT [place] ([facility]) [id number] Hyperlipidemia Hyperlipidemia Problem 03/17/2021 12:00: 00 AM EDT [place] ([facility]) [id number] Vitamin D deficiency Vitamin D Deficiency Problem 03/17/2021 12:00:00 AM EDT [place] ([facility]) [id number] Sinus headache Sinus Headache Problem 03/17/2021 12:00: 00 AM EDT [place] ([facility]) [id number] Chronic sinusitis Chronic Sinusitis Problem 03/17/2021 12:00:00 AM EDT [place] ([facility]) [id number] Hyperlipidemia Hyperlipidemia Problem 03/17/2021 12:00: 00 AM EDT [place] ([facility]) [id number] Vitamin D deficiency Vitamin D Deficiency Problem 03/17/2021 12:00:00 AM EDT [place] ([facility]) [id number] Sinus headache Sinus Headache Problem 03/17/2021 12:00: 00 AM EDT [place] ([facility]) [id number] Chronic sinusitis Chronic Sinusitis Problem 03/17/2021 12:00:00 AM EDT [place] ([facility]) [id number] Hyperlipidemia Hyperlipidemia Problem 03/17/2021 12:00: 00 AM EDT [place] ([facility]) [id number] Vitamin D deficiency Vitamin D Deficiency Problem 03/17/2021 12:00:00 AM EDT [facility] er) [id number] Seasonal allergy Seasonal Allergy Problem 02/25/2021 12 :00:00 AM EDT [facility]) [id number] Mixed anxiety and depressive disorder Mi xed Anxiety and Depressive Disorder Problem 02/25/2021 12:00:00 AM EDT [place] ([facility]) [id number] Seasonal allergy Seasonal Allergy Problem 02/25/2021 12 :00:00 AM EDT [place] ([facility]) [id number] Mixed anxiety and depressive disorder Mi xed Anxiety and Depressive Disorder Problem 02/25/2021 12:00:00 AM EDT [facility]) [id number] Seasonal allergy Seasonal Allergy Problem 02/25/2021 12 :00:00 AM EDT [facility]) [id number] Mixed anxiety and depressive disorder Mi xed Anxiety and Depressive Disorder Problem 02/25/2021 12:00:00 AM EDT [place] ([facility]) [id number] Seasonal allergy Seasonal Allergy Problem 02/25/2021 12 :00:00 AM EDT [place] ([facility]) [id number] Mixed anxiety and depressive disorder Mi xed Anxiety and Depressive Disorder Problem 02/25/2021 12:00:00 AM EDT [place] ([facility]) [id number] Seasonal allergy Seasonal Allergy Problem 02/25/2021 12 :00:00 AM EDT [place] ([facility]) [id number] Mixed anxiety and depressive disorder Mi xed Anxiety and Depressive Disorder Problem 02/25/2021 12:00:00 AM EDT [place] ([facility]) [id number] Seasonal allergy Seasonal Allergy Problem 02/25/2021 12 :00:00 AM EDT [place] ([facility]) [id number] Mixed anxiety and depressive disorder Mi xed Anxiety and Depressive Disorder Problem 02/25/2021 12:00:00 AM EDT [place] ([facility]) [id number] Seasonal allergy Seasonal Allergy Problem 02/25/2021 12 :00:00 AM EDT [place] ([facility]) [id number] Mixed anxiety and depressive disorder Mi xed Anxiety and Depressive Disorder Problem 02/25/2021 12:00:00 AM EDT [place] ([facility]) [id number] Seasonal allergy Seasonal Allergy Problem 02/25/2021 12 :00:00 AM EDT [place] ([facility]) [id number] Mixed anxiety and depressive disorder Mi xed Anxiety and Depressive Disorder Problem 02/25/2021 12:00:00 AM EDT [place] ([facility]) [id number] Seasonal allergy Seasonal Allergy Problem 02/25/2021 12 :00:00 AM EDT [place] ([facility]) [id number] Mixed anxiety and depressive disorder Mi xed Anxiety and Depressive Disorder Problem 02/25/2021 12:00:00 AM EDT [place] ([facility]) [id number] Seasonal allergy Seasonal Allergy Problem 02/25/2021 12 :00:00 AM EDT [place] ([facility]) [id number] Mixed anxiety and depressive disorder Mi xed Anxiety and Depressive Disorder Problem 02/25/2021 12:00:00 AM EDT [place] ([facility]) [id number] Seasonal allergy Seasonal Allergy Problem 02/25/2021 12 :00:00 AM EDT [place] ([facility]) [id number] Mixed anxiety and depressive disorder Mi xed Anxiety and Depressive Disorder Problem 02/25/2021 12:00:00 AM EDT [place] ([facility]) Surgeries/Procedures Procedure Description Date Indications Data Source(s) PHYSICIAN TELEPHONE EVALUATION 11-20 MIN 07/07/2021 12 :00:00 AM EDT [place] ([facility], ) MRI BRAIN BRAIN STEM W/O CONTRAST MATERIAL 06/15/2021 12:00:00 AM EDT [place] ([facility] ) MRI BRAIN BRAIN STEM W/O CONTRAST MATERIAL 06/15/2021 12:00:00 AM EDT [place] ([facility] ) MRI BRAIN BRAIN STEM W/O CONTRAST MATERIAL 06/15/2021 12:00:00 AM EDT [facility] ([facility], ) ELECTROENCEPHALOGRAM W/REC AWAKE&ASLEEP 06/09/2021 12: 00:00 AM EDT [facility]) ELECTROENCEPHALOGRAM W/REC AWAKE&ASLEEP 06/09/2021 12: 00:00 AM EDT [facility] ([facility]) OFFICE OUTPATIENT NEW 45 MINUTES 04/30/2021 12:00:00 A M EDT [facility] ([facility]) Results ID Date Data Source [id number] 03/09/2021 12:00:00 AM EDT [facility]) Name Value Range Interpretation Code Description Data Serena rce(s) Supporting Document(s) Reagin Ab [Presence] in Serum by RPR non-reactive non-reactive RPR (DX) W/refl Titer and Confirmatory Testing [facility]) ID Date Data Source [id number] 03/09/2021 12:00:00 AM EDT [facility]) Name Value Range Interpretation Code Description Data Serena rce(s) Supporting Document(s) Hemoglobin A1c/Hemoglobin.total in Blood 4.9 %_of_total_HGB <5.7 Hemoglobin a1C [facility]) ID Date Data Source [id number] 03/09/2021 12:00:00 AM EDT [facility]) Name Value Range Interpretation Code Description Data Serena rce(s) Supporting Document(s) Calcidiol [Mass/volume] in Serum or Plasma 12 NG/mL 30-100 Below low normal Vitamin D,25-Oh,total,ia [facility]) ID Date Data Source [id number] 03/09/2021 12:00:00 AM EDT [facility]) Name Value Range Interpretation Code Description Data Serena rce(s) Supporting Document(s) Thyrotropin [Units/volume] in Serum or Plasma 1.43 mIU/L 0.40-4.50 Tsh [place] ([facility]) ID Date Data Source [id number] 03/09/2021 12:00:00 AM EDT [place] ([facility]) Name Value Range Interpretation Code Description Data Serena rce(s) Supporting Document(s) Glucose [Mass/volume] in Serum or Plasma 98 mg/dL 65-99 Glucose [place] ([facility]) Creatinine [Mass/volume] in Serum or Plasma 0.88 mg/dL 0.60-1.35 Creatinine [place] ([facility]) Glomerular filtration rate/1.73 sq M.pre dicted among non-blacks [Volume Rate/Area] in Serum, Plasma or Blood by Creatinine-based formula (CKD-EPI) 115 mL/min/1.73m2 > or = 60 eGFR Non-afr. [place] ([facility]) Urea nitrogen [Mass/volume] in Serum or Plasma 13 mg/dL 7-25 [facility] N[facility]UN) [facility] Glomerular filtration rate/1.73 sq M.pre dicted among blacks [Volume Rate/Area] in Serum, Plasma or Blood by Creatinine-based formula (CKD-EPI) 134 mL/min/1.73m2 > or = 60 eGFR [place] ([facility]) Urea nitrogen/Creatinine [Mass Ratio] in Serum or Plasma not applic able 6-22 BUN/creatinine Ratio [place] ([facility]) Potassium [Moles/volume] in Serum or Plasma 4.0 mmol/L 3.5-5.3 Potassium [place] ([facility]) Sodium [Moles/volume] in Serum or Plasma 138 mmol/L 135-146 Sodium [place] ([facility]) Chloride [Moles/volume] in Serum or Plasma 102 mmol/L 98-110 Chloride [place] ([facility]) Carbon dioxide, total [Moles/volume] in Serum or Plasma 28 mmol/L 20-32 Carbon Dioxide [place] ([facility]) Calcium [Mass/volume] in Serum or Plasma 9.7 mg/dL 8.6-10.3 Calcium [place] ([facility]) Protein [Mass/volume] in Serum or Plasma 7.4 g/dL 6.1-8.1 Protein, Total [place] ([facility]) Albumin [Mass/volume] in Serum or Plasma 4.4 g/dL 3.6-5.1 Albumin [place] ([facility]) Aspartate aminotransferase [Enzymatic activity/volume] in Serum or Plasma 27 U/L 10-40 Ast [place] ([facility]) Bilirubin.total [Mass/volume] in Serum or Plasma 0.7 mg/dL 0.2-1 .2 Bilirubin, Total [place] ([facility]) Alkaline phosphatase [Enzymatic activity/volume] in Serum or Plasma 51 U/L 36-130 Alkaline Phosphatase [place] ([facility]) Globulin [Mass/volume] in Serum by calculation 3.0 g/dL_(calc) 1.9- 3.7 Globulin [place] ([facility]) Albumin/Globulin [Mass Ratio] in Serum or Plasma 1.5 (calc) 1.0-2 .5 Albumin/globulin Ratio [place] ([facility]) Alanine aminotransferase [Enzymatic activity/volume] in Seru m or Plasma 40 U/L 9-46 Alt [place] ([facility]) ID Date Data Source [id number] 03/09/2021 12:00:00 AM EDT [place] ([facility]) Name Value Range Interpretation Code Description Data Serena rce(s) Supporting Document(s) HIV 1+2 Ab+HIV1 p24 Ag [Presence] in Serum or Plasma b y Immunoassay non-reactive non-reactive HIV Ag/Ab, 4TH Gen [place] ([facility]) ID Date Data Source [id number] 03/09/2021 12:00:00 AM EDT [place] ([facility]) Name Value Range Interpretation Code Description Data Serena rce(s) Supporting Document(s) Hepatitis A virus IgM Ab [Presence] in Serum or Plasma by Immunoassay non-reactive non-reactive Hepatitis a IgM [place] ([facility]) Hepatitis B virus core IgM Ab [Presence] in Serum or P lasma by Immunoassay non-reactive non-reactive Hepatitis B Core Antibody (IgM) [place] ([facility]) Hepatitis C virus Ab Signal/Cutoff in Serum or Plasma by Immunoassa y <1.00 Index [place] ([facility]) Hepatitis B virus surface Ag [Presence] in Serum or Pl asma by Immunoassay non-reactive non-reactive Hepatitis B Surface Antigen [facility] ([facility]) Hepatitis C virus Ab [Presence] in Serum or Plasma by Immuno assay non-reactive non-reactive Hepatitis C Antibody [place] ([facility]) ID Date Data Source [id number] 03/09/2021 12:00:00 AM EDT [place] ([facility]) Name Value Range Interpretation Code Description Data Serena rce(s) Supporting Document(s) Cholesterol [Mass/volume] in Serum or Plasma 230 mg/dL <200 Above high normal Cholesterol, Total [place] ([facility]) Cholesterol in HDL [Mass/volume] in Serum or Plasma 50 mg/dL > or = 40 HDL Cholesterol [place] ([facility]) Cholesterol in LDL [Mass/volume] in Serum or Plasma by calculation 149 mg/dL_(calc) Above high normal LDL-cholesterol [place] ([facility]) Triglyceride [Mass/volume] in Serum or Plasma 179 mg/dL <150 Above high normal Triglycerides [place] ([facility]) Cholesterol non HDL [Mass/volume] in Serum or Plasma 180 mg/dL_( calc) <130 Above high normal Non HDL Cholesterol [place] ([facility]) Cholesterol.total/Cholesterol in HDL [Mass Ratio] in Serum o r Plasma 4.6 (calc) <5.0 Chol/hdlc Ratio [place] ([facility]) ID Date Data Source [id number] 03/09/2021 12:00:00 AM EDT [facility]) Name Value Range Interpretation Code Description Data Serena rce(s) Supporting Document(s) Reagin Ab [Presence] in Serum by RPR non-reactive non-reactive RPR (DX) W/refl Titer and Confirmatory Testing [facility] ID Date Data Source [id number] 03/09/2021 12:00:00 AM EDT [facility]) Name Value Range Interpretation Code Description Data Serena rce(s) Supporting Document(s) Hemoglobin A1c/Hemoglobin.total in Blood 4.9 %_of_total_HGB <5.7 Hemoglobin a1C [facility]) ID Date Data Source [id number] 03/09/2021 12:00:00 AM EDT [facility]) Name Value Range Interpretation Code Description Data Serena rce(s) Supporting Document(s) Calcidiol [Mass/volume] in Serum or Plasma 12 NG/mL 30-100 Below low normal Vitamin D,25-Oh,total,ia [facility]) ID Date Data Source [id number] 03/09/2021 12:00:00 AM EDT [facility]) Name Value Range Interpretation Code Description Data Serena rce(s) Supporting Document(s) Thyrotropin [Units/volume] in Serum or Plasma 1.43 mIU/L 0.40-4.50 Tsh [facility]) ID Date Data Source [id number] 03/09/2021 12:00:00 AM EDT [facility]) Name Value Range Interpretation Code Description Data Serena rce(s) Supporting Document(s) Glucose [Mass/volume] in Serum or Plasma 98 mg/dL 65-99 Glucose [place] ([facility]) Urea nitrogen [Mass/volume] in Serum or Plasma 13 mg/dL 7-25 Urea Nitrogen (BUN) [facility] ([facility]) Creatinine [Mass/volume] in Serum or Plasma 0.88 mg/dL 0.60-1.35 Creatinine [place] ([facility]) Glomerular filtration rate/1.73 sq M.pre dicted among non-blacks [Volume Rate/Area] in Serum, Plasma or Blood by Creatinine-based formula (CKD-EPI) 115 mL/min/1.73m2 > or = 60 eGFR Non-afr. [place] ([facility]) Urea nitrogen/Creatinine [Mass Ratio] in Serum or Plasma not applic able 6-22 BUN/creatinine Ratio [facility] ([facility]) Glomerular filtration rate/1.73 sq M.pre dicted among blacks [Volume Rate/Area] in Serum, Plasma or Blood by Creatinine-based formula (CKD-EPI) 134 mL/min/1.73m2 > or = 60 eGFR [facility] ([facility]) Sodium [Moles/volume] in Serum or Plasma 138 mmol/L 135-146 Sodium [place] ([facility]) Potassium [Moles/volume] in Serum or Plasma 4.0 mmol/L 3.5-5.3 Potassium [place] ([facility]) Protein [Mass/volume] in Serum or Plasma 7.4 g/dL 6.1-8.1 Protein, Total [place] ([facility]) Chloride [Moles/volume] in Serum or Plasma 102 mmol/L 98-110 Chloride [facility] ([facility]) Carbon dioxide, total [Moles/volume] in Serum or Plasma 28 mmol/L 20-32 Carbon Dioxide [facility] ([facility]) Calcium [Mass/volume] in Serum or Plasma 9.7 mg/dL 8.6-10.3 Calcium [place] ([facility]) Alkaline phosphatase [Enzymatic activity/volume] in Serum or Plasma 51 U/L 36-130 Alkaline Phosphatase [place] ([facility]) Globulin [Mass/volume] in Serum by calculation 3.0 g/dL_(calc) 1.9- 3.7 Globulin [place] ([facility]) Albumin [Mass/volume] in Serum or Plasma 4.4 g/dL 3.6-5.1 Albumin [facility]) Bilirubin.total [Mass/volume] in Serum or Plasma 0.7 mg/dL 0.2-1 .2 Bilirubin, Total [facility]) Albumin/Globulin [Mass Ratio] in Serum or Plasma 1.5 (calc) 1.0-2 .5 Albumin/globulin Ratio [facility] ([facility]) Aspartate aminotransferase [Enzymatic activity/volume] in Serum or Plasma 27 U/L 10-40 Ast [place] ([facility]) Alanine aminotransferase [Enzymatic activity/volume] in Seru m or Plasma 40 U/L 9-46 Alt [facility] ([facility]) ID Date Data Source [id number] 03/09/2021 12:00:00 AM EDT [place] ([facility]) Name Value Range Interpretation Code Description Data Serena rce(s) Supporting Document(s) HIV 1+2 Ab+HIV1 p24 Ag [Presence] in Serum or Plasma b y Immunoassay non-reactive non-reactive HIV Ag/Ab, 4TH Gen [facility] ([facility]) ID Date Data Source [id number] 03/09/2021 12:00:00 AM EDT [place] ([facility]) Name Value Range Interpretation Code Description Data Serena rce(s) Supporting Document(s) Hepatitis B virus surface Ag [Presence] in Serum or Pl asma by Immunoassay non-reactive non-reactive Hepatitis B Surface Antigen [facility] ([facility]) Hepatitis A virus IgM Ab [Presence] in Serum or Plasma by Immunoassay non-reactive non-reactive Hepatitis a IgM [place] ([facility]) Hepatitis B virus core IgM Ab [Presence] in Serum or P lasma by Immunoassay non-reactive non-reactive Hepatitis B Core Antibody (IgM) [place] ([facility]) Hepatitis C virus Ab [Presence] in Serum or Plasma by Immuno assay non-reactive non-reactive Hepatitis C Antibody [facility] ([facility]) Hepatitis C virus Ab Signal/Cutoff in Serum or Plasma by Immunoassa y <1.00 Index [place] ([facility]) ID Date Data Source [id number] 03/09/2021 12:00:00 AM EDT [facility]) Name Value Range Interpretation Code Description Data Serena rce(s) Supporting Document(s) Cholesterol [Mass/volume] in Serum or Plasma 230 mg/dL <200 Above high normal Cholesterol, Total [place] ([facility]) Cholesterol in HDL [Mass/volume] in Serum or Plasma 50 mg/dL > or = 40 HDL Cholesterol [facility] ([facility]) Cholesterol in LDL [Mass/volume] in Serum or Plasma by calculation 149 mg/dL_(calc) Above high normal LDL-cholesterol [facility] ([facility]) Cholesterol.total/Cholesterol in HDL [Mass Ratio] in Serum o r Plasma 4.6 (calc) <5.0 Chol/hdlc Ratio [facility] ([facility]) Triglyceride [Mass/volume] in Serum or Plasma 179 mg/dL <150 Above high normal Triglycerides [facility] ([facility]) Cholesterol non HDL [Mass/volume] in Serum or Plasma 180 mg/dL_( calc) <130 Above high normal Non HDL Cholesterol [place] ([facility]) ID Date Data Source [id number] 03/09/2021 12:00:00 AM EDT [facility]) Name Value Range Interpretation Code Description Data Serena rce(s) Supporting Document(s) Reagin Ab [Presence] in Serum by RPR non-reactive non-reactive RPR (DX) W/refl Titer and Confirmatory Testing [facility]) ID Date Data Source [id number] 03/09/2021 12:00:00 AM EDT [facility]) Name Value Range Interpretation Code Description Data Serena rce(s) Supporting Document(s) Hemoglobin A1c/Hemoglobin.total in Blood 4.9 %_of_total_HGB <5.7 Hemoglobin a1C [facility]) ID Date Data Source [id number] 03/09/2021 12:00:00 AM EDT [facility]) Name Value Range Interpretation Code Description Data Serena rce(s) Supporting Document(s) Calcidiol [Mass/volume] in Serum or Plasma 12 NG/mL 30-100 Below low normal Vitamin D,25-Oh,total,ia [facility] ID Date Data Source [id number] 03/09/2021 12:00:00 AM EDT [facility]) Name Value Range Interpretation Code Description Data Serena rce(s) Supporting Document(s) Thyrotropin [Units/volume] in Serum or Plasma 1.43 mIU/L 0.40-4.50 Tsh [facility]) ID Date Data Source [id number] 03/09/2021 12:00:00 AM EDT [facility]) Name Value Range Interpretation Code Description Data Serena rce(s) Supporting Document(s) Urea nitrogen [Mass/volume] in Serum or Plasma 13 mg/dL 7-25 Urea Nitrogen (BUN) [facility] Glucose [Mass/volume] in Serum or Plasma 98 mg/dL 65-99 Glucose [place] ([facility]) Creatinine [Mass/volume] in Serum or Plasma 0.88 mg/dL 0.60-1.35 Creatinine [place] ([facility]) Urea nitrogen/Creatinine [Mass Ratio] in Serum or Plasma not applic able 6-22 BUN/creatinine Ratio [facility] ([facility]) Glomerular filtration rate/1.73 sq M.pre dicted among blacks [Volume Rate/Area] in Serum, Plasma or Blood by Creatinine-based formula (CKD-EPI) 134 mL/min/1.73m2 > or = 60 eGFR [facility] ([facility]) Potassium [Moles/volume] in Serum or Plasma 4.0 mmol/L 3.5-5.3 Potassium [facility] ([facility]) Glomerular filtration rate/1.73 sq M.pre dicted among non-blacks [Volume Rate/Area] in Serum, Plasma or Blood by Creatinine-based formula (CKD-EPI) 115 mL/min/1.73m2 > or = 60 eGFR Non-afr. [place] [facility] ([facility]) Sodium [Moles/volume] in Serum or Plasma 138 mmol/L 135-146 Sodium [place] ([facility]) Carbon dioxide, total [Moles/volume] in Serum or Plasma 28 mmol/L 20-32 Carbon Dioxide [facility] ([facility]) Chloride [Moles/volume] in Serum or Plasma 102 mmol/L 98-110 Chloride [facility] ([facility]) Calcium [Mass/volume] in Serum or Plasma 9.7 mg/dL 8.6-10.3 Calcium [place] ([facility]) Protein [Mass/volume] in Serum or Plasma 7.4 g/dL 6.1-8.1 Protein, Total [facility] ([facility]) Albumin [Mass/volume] in Serum or Plasma 4.4 g/dL 3.6-5.1 Albumin [place] ([facility]) Aspartate aminotransferase [Enzymatic activity/volume] in Serum or Plasma 27 U/L 10-40 Ast [place] ([facility]) Alkaline phosphatase [Enzymatic activity/volume] in Serum or Plasma 51 U/L 36-130 Alkaline Phosphatase [place] ([facility]) Bilirubin.total [Mass/volume] in Serum or Plasma 0.7 mg/dL 0.2-1 .2 Bilirubin, Total [place] ([facility]) Globulin [Mass/volume] in Serum by calculation 3.0 g/dL_(calc) 1.9- 3.7 Globulin [place] ([facility]) Albumin/Globulin [Mass Ratio] in Serum or Plasma 1.5 (calc) 1.0-2 .5 Albumin/globulin Ratio [place] ([facility]) Alanine aminotransferase [Enzymatic activity/volume] in Seru m or Plasma 40 U/L 9-46 Alt [place] ([facility]) ID Date Data Source [id number] 03/09/2021 12:00:00 AM EDT [place] ([facility]) Name Value Range Interpretation Code Description Data Serena rce(s) Supporting Document(s) HIV 1+2 Ab+HIV1 p24 Ag [Presence] in Serum or Plasma b y Immunoassay non-reactive non-reactive HIV Ag/Ab, 4TH Gen [facility]) ID Date Data Source [id number] 03/09/2021 12:00:00 AM EDT [place] ([facility]) Name Value Range Interpretation Code Description Data Serena rce(s) Supporting Document(s) Hepatitis A virus IgM Ab [Presence] in Serum or Plasma by Immunoassay non-reactive non-reactive Hepatitis a IgM [place] ([facility]) Hepatitis B virus surface Ag [Presence] in Serum or Pl asma by Immunoassay non-reactive non-reactive Hepatitis B Surface Antigen ATHE NA ([facility]) Hepatitis B virus core IgM Ab [Presence] in Serum or P lasma by Immunoassay non-reactive non-reactive Hepatitis B Core Antibody (IgM) [place] ([facility]) Hepatitis C virus Ab [Presence] in Serum or Plasma by Immuno assay non-reactive non-reactive Hepatitis C Antibody [place] ([facility]) Hepatitis C virus Ab Signal/Cutoff in Serum or Plasma by Immunoassa y <1.00 Index [place] ([facility]) ID Date Data Source [id number] 03/09/2021 12:00:00 AM EDT [place] ([facility]) Name Value Range Interpretation Code Description Data Serena rce(s) Supporting Document(s) Cholesterol [Mass/volume] in Serum or Plasma 230 mg/dL <200 Above high normal Cholesterol, Total [place] ([facility]) Triglyceride [Mass/volume] in Serum or Plasma 179 mg/dL <150 Above high normal Triglycerides [place] ([facility]) Cholesterol in HDL [Mass/volume] in Serum or Plasma 50 mg/dL > or = 40 HDL Cholesterol [place] ([facility]) Cholesterol.total/Cholesterol in HDL [Mass Ratio] in Serum o r Plasma 4.6 (calc) <5.0 Chol/hdlc Ratio [place] ([facility]) Cholesterol non HDL [Mass/volume] in Serum or Plasma 180 mg/dL_( calc) <130 Above high normal Non HDL Cholesterol [place] ([facility]) Cholesterol in LDL [Mass/volume] in Serum or Plasma by calculation 149 mg/dL_(calc) Above high normal LDL-cholesterol [place] ([facility]) ID Date Data Source [id number] 03/09/2021 12:00:00 AM EDT [facility]) Name Value Range Interpretation Code Description Data Serena rce(s) Supporting Document(s) Reagin Ab [Presence] in Serum by RPR non-reactive non-reactive RPR (DX) W/refl Titer and Confirmatory Testing [facility]) ID Date Data Source [id number] 03/09/2021 12:00:00 AM EDT [facility]) Name Value Range Interpretation Code Description Data Serena rce(s) Supporting Document(s) Hemoglobin A1c/Hemoglobin.total in Blood 4.9 %_of_total_HGB <5.7 Hemoglobin a1C [facility]) ID Date Data Source [id number] 03/09/2021 12:00:00 AM EDT [facility]) Name Value Range Interpretation Code Description Data Serena rce(s) Supporting Document(s) Calcidiol [Mass/volume] in Serum or Plasma 12 NG/mL 30-100 Below low normal Vitamin D,25-Oh,total,ia [facility]) ID Date Data Source [id number] 03/09/2021 12:00:00 AM EDT [facility]) Name Value Range Interpretation Code Description Data Serena rce(s) Supporting Document(s) Thyrotropin [Units/volume] in Serum or Plasma 1.43 mIU/L 0.40-4.50 Tsh [facility]) ID Date Data Source [id number] 03/09/2021 12:00:00 AM EDT [facility]) Name Value Range Interpretation Code Description Data Serena rce(s) Supporting Document(s) Urea nitrogen [Mass/volume] in Serum or Plasma 13 mg/dL 7-25 [facility]) [facility] Glucose [Mass/volume] in Serum or Plasma 98 mg/dL 65-99 Glucose [place] ([facility]) Urea nitrogen/Creatinine [Mass Ratio] in Serum or Plasma not applic able 6-22 BUN/creatinine Ratio [place] ([facility]) Glomerular filtration rate/1.73 sq M.pre dicted among non-blacks [Volume Rate/Area] in Serum, Plasma or Blood by Creatinine-based formula (CKD-EPI) 115 mL/min/1.73m2 > or = 60 eGFR Non-afr. [place] ([facility]) Glomerular filtration rate/1.73 sq M.pre dicted among blacks [Volume Rate/Area] in Serum, Plasma or Blood by Creatinine-based formula (CKD-EPI) 134 mL/min/1.73m2 > or = 60 eGFR [place] (No [facility]) Sodium [Moles/volume] in Serum or Plasma 138 mmol/L 135-146 Sodium [place] ([facility]) Creatinine [Mass/volume] in Serum or Plasma 0.88 mg/dL 0.60-1.35 Creatinine [place] ([facility]) Chloride [Moles/volume] in Serum or Plasma 102 mmol/L 98-110 Chloride [place] ([facility]) Protein [Mass/volume] in Serum or Plasma 7.4 g/dL 6.1-8.1 Protein, Total [place] ([facility]) Carbon dioxide, total [Moles/volume] in Serum or Plasma 28 mmol/L 20-32 Carbon Dioxide [place] ([facility]) Potassium [Moles/volume] in Serum or Plasma 4.0 mmol/L 3.5-5.3 Potassium [place] ([facility]) Calcium [Mass/volume] in Serum or Plasma 9.7 mg/dL 8.6-10.3 Calcium [place] ([facility]) Globulin [Mass/volume] in Serum by calculation 3.0 g/dL_(calc) 1.9- 3.7 Globulin [place] ([facility]) Albumin/Globulin [Mass Ratio] in Serum or Plasma 1.5 (calc) 1.0-2 .5 Albumin/globulin Ratio [place] ([facility]) Alkaline phosphatase [Enzymatic activity/volume] in Serum or Plasma 51 U/L 36-130 Alkaline Phosphatase [place] ([facility]) Bilirubin.total [Mass/volume] in Serum or Plasma 0.7 mg/dL 0.2-1 .2 Bilirubin, Total [place] ([facility]) Albumin [Mass/volume] in Serum or Plasma 4.4 g/dL 3.6-5.1 Albumin [place] ([facility]) Aspartate aminotransferase [Enzymatic activity/volume] in Serum or Plasma 27 U/L 10-40 Ast [place] ([facility]) Alanine aminotransferase [Enzymatic activity/volume] in Seru m or Plasma 40 U/L 9-46 Alt [place] ([facility]) ID Date Data Source [id number] 03/09/2021 12:00:00 AM EDT [facility]) Name Value Range Interpretation Code Description Data Serena rce(s) Supporting Document(s) HIV 1+2 Ab+HIV1 p24 Ag [Presence] in Serum or Plasma b y Immunoassay non-reactive non-reactive HIV Ag/Ab, [facility] ID Date Data Source [id number] 03/09/2021 12:00:00 AM EDT [place] ([facility]) Name Value Range Interpretation Code Description Data Serena rce(s) Supporting Document(s) Hepatitis C virus Ab [Presence] in Serum or Plasma by Immuno assay non-reactive non-reactive Hepatitis C Antibody [place] ([facility]) Hepatitis A virus IgM Ab [Presence] in Serum or Plasma by Immunoassay non-reactive non-reactive Hepatitis a IgM [place] ([facility]) Hepatitis B virus surface Ag [Presence] in Serum or Pl asma by Immunoassay non-reactive non-reactive Hepatitis B Surface Antigen AT[facility] NA ([facility]) Hepatitis B virus core IgM Ab [Presence] in Serum or P lasma by Immunoassay non-reactive non-reactive Hepatitis B Core Antibody (IgM) [place] ([facility]) Hepatitis C virus Ab Signal/Cutoff in Serum or Plasma by Immunoassa y <1.00 Index [place] ([facility]) ID Date Data Source [id number] 03/09/2021 12:00:00 AM EDT [place] ([facility]) Name Value Range Interpretation Code Description Data Serena rce(s) Supporting Document(s) Cholesterol in HDL [Mass/volume] in Serum or Plasma 50 mg/dL > or = 40 HDL Cholesterol [place] ([facility]) Cholesterol [Mass/volume] in Serum or Plasma 230 mg/dL <200 Above high normal Cholesterol, Total [place] ([facility]) Cholesterol in LDL [Mass/volume] in Serum or Plasma by calculation 149 mg/dL_(calc) Above high normal LDL-cholesterol [place] ([facility]) Triglyceride [Mass/volume] in Serum or Plasma 179 mg/dL <150 Above high normal Triglycerides [place] ([facility]) Cholesterol.total/Cholesterol in HDL [Mass Ratio] in Serum o r Plasma 4.6 (calc) <5.0 Chol/hdlc Ratio [place] ([facility]) Cholesterol non HDL [Mass/volume] in Serum or Plasma 180 mg/dL_( calc) <130 Above high normal Non HDL Cholesterol [place] ([facility]) ID Date Data Source [id number] 03/09/2021 12:00:00 AM EDT [facility]) Name Value Range Interpretation Code Description Data Serena rce(s) Supporting Document(s) Reagin Ab [Presence] in Serum by RPR non-reactive non-reactive RPR (DX) W/refl Titer and Confirmatory Testing [facility] ID Date Data Source [id number] 03/09/2021 12:00:00 AM EDT [facility]) Name Value Range Interpretation Code Description Data Serena rce(s) Supporting Document(s) Hemoglobin A1c/Hemoglobin.total in Blood 4.9 %_of_total_HGB <5.7 Hemoglobin a1C [facility] ID Date Data Source [id number] 03/09/2021 12:00:00 AM EDT [facility]) Name Value Range Interpretation Code Description Data Serena rce(s) Supporting Document(s) Calcidiol [Mass/volume] in Serum or Plasma 12 NG/mL 30-100 Below low normal Vitamin D,25-Oh,total,ia [facility]) ID Date Data Source [id number] 03/09/2021 12:00:00 AM EDT [facility]) Name Value Range Interpretation Code Description Data Serena rce(s) Supporting Document(s) Thyrotropin [Units/volume] in Serum or Plasma 1.43 mIU/L 0.40-4.50 Tsh [facility]) ID Date Data Source [id number] 03/09/2021 12:00:00 AM EDT [facility]) Name Value Range Interpretation Code Description Data Serena rce(s) Supporting Document(s) Glucose [Mass/volume] in Serum or Plasma 98 mg/dL 65-99 Glucose [place] ([facility]) Urea nitrogen [Mass/volume] in Serum or Plasma 13 mg/dL 7-25 Urea Nitrogen (BUN) [place] ([facility]) Glomerular filtration rate/1.73 sq M.pre dicted among non-blacks [Volume Rate/Area] in Serum, Plasma or Blood by Creatinine-based formula (CKD-EPI) 115 mL/min/1.73m2 > or = 60 eGFR Non-afr. [place] ([facility]) Creatinine [Mass/volume] in Serum or Plasma 0.88 mg/dL 0.60-1.35 Creatinine [place] ([facility]) Glomerular filtration rate/1.73 sq M.pre dicted among blacks [Volume Rate/Area] in Serum, Plasma or Blood by Creatinine-based formula (CKD-EPI) 134 mL/min/1.73m2 > or = 60 eGFR [place] ([facility]) Chloride [Moles/volume] in Serum or Plasma 102 mmol/L 98-110 Chloride [place] ([facility]) Carbon dioxide, total [Moles/volume] in Serum or Plasma 28 mmol/L 20-32 Carbon Dioxide [place] ([facility]) Sodium [Moles/volume] in Serum or Plasma 138 mmol/L 135-146 Sodium [place] ([facility]) Potassium [Moles/volume] in Serum or Plasma 4.0 mmol/L 3.5-5.3 Potassium [place] ([facility]) Urea nitrogen/Creatinine [Mass Ratio] in Serum or Plasma not applic able 6-22 BUN/creatinine Ratio [place] ([facility]) Protein [Mass/volume] in Serum or Plasma 7.4 g/dL 6.1-8.1 Protein, Total [place] ([facility]) Albumin [Mass/volume] in Serum or Plasma 4.4 g/dL 3.6-5.1 Albumin [place] ([facility]) Calcium [Mass/volume] in Serum or Plasma 9.7 mg/dL 8.6-10.3 Calcium [place] ([facility]) Globulin [Mass/volume] in Serum by calculation 3.0 g/dL_(calc) 1.9- 3.7 Globulin [place] ([facility]) Bilirubin.total [Mass/volume] in Serum or Plasma 0.7 mg/dL 0.2-1 .2 Bilirubin, Total [place] ([facility]) Albumin/Globulin [Mass Ratio] in Serum or Plasma 1.5 (calc) 1.0-2 .5 Albumin/globulin Ratio [place] ([facility]) Alkaline phosphatase [Enzymatic activity/volume] in Serum or Plasma 51 U/L 36-130 Alkaline Phosphatase [place] ([facility]) Aspartate aminotransferase [Enzymatic activity/volume] in Serum or Plasma 27 U/L 10-40 Ast [place] ([facility]) Alanine aminotransferase [Enzymatic activity/volume] in Seru m or Plasma 40 U/L 9-46 Alt [place] ([facility]) ID Date Data Source [id number] 03/09/2021 12:00:00 AM EDT [place] ([facility]) Name Value Range Interpretation Code Description Data Serena rce(s) Supporting Document(s) HIV 1+2 Ab+HIV1 p24 Ag [Presence] in Serum or Plasma b y Immunoassay non-reactive non-reactive HIV Ag/Ab, 4TH Gen [place] ([facility]) ID Date Data Source [id number] 03/09/2021 12:00:00 AM EDT [facility]) Name Value Range Interpretation Code Description Data Serena rce(s) Supporting Document(s) Hepatitis A virus IgM Ab [Presence] in Serum or Plasma by Immunoassay non-reactive non-reactive Hepatitis a IgM [place] ([facility]) Hepatitis C virus Ab [Presence] in Serum or Plasma by Immuno assay non-reactive non-reactive Hepatitis C Antibody [place] ([facility]) Hepatitis B virus surface Ag [Presence] in Serum or Pl asma by Immunoassay non-reactive non-reactive Hepatitis B Surface Antigen [place] ([facility]) Hepatitis B virus core IgM Ab [Presence] in Serum or P lasma by Immunoassay non-reactive non-reactive Hepatitis B Core Antibody (IgM) [place] ([facility]) Hepatitis C virus Ab Signal/Cutoff in Serum or Plasma by Immunoassa y <1.00 Index [facility] ID Date Data Source [id number] 03/09/2021 12:00:00 AM EDT [facility]) Name Value Range Interpretation Code Description Data Serena rce(s) Supporting Document(s) Cholesterol [Mass/volume] in Serum or Plasma 230 mg/dL <200 Above high normal Cholesterol, Total [place] ([facility]) Cholesterol in HDL [Mass/volume] in Serum or Plasma 50 mg/dL > or = 40 HDL Cholesterol [place] ([facility]) Triglyceride [Mass/volume] in Serum or Plasma 179 mg/dL <150 Above high normal Triglycerides [place] ([facility]) Cholesterol in LDL [Mass/volume] in Serum or Plasma by calculation 149 mg/dL_(calc) Above high normal LDL-cholesterol [place] ([facility]) Cholesterol non HDL [Mass/volume] in Serum or Plasma 180 mg/dL_( calc) <130 Above high normal Non HDL Cholesterol [facility] ([facility]) Cholesterol.total/Cholesterol in HDL [Mass Ratio] in Serum o r Plasma 4.6 (calc) <5.0 Chol/hdlc Ratio [place] ([facility]) ID Date Data Source [id number] 03/09/2021 12:00:00 AM EDT [facility]) Name Value Range Interpretation Code Description Data Serena rce(s) Supporting Document(s) Reagin Ab [Presence] in Serum by RPR non-reactive non-reactive RPR (DX) W/refl Titer and Confirmatory Testing [facility]) ID Date Data Source [id number] 03/09/2021 12:00:00 AM EDT [facility]) Name Value Range Interpretation Code Description Data Serena rce(s) Supporting Document(s) Hemoglobin A1c/Hemoglobin.total in Blood 4.9 %_of_total_HGB <5.7 Hemoglobin a1C [facility]) ID Date Data Source [id number] 03/09/2021 12:00:00 AM EDT [facility]) Name Value Range Interpretation Code Description Data Serena rce(s) Supporting Document(s) Calcidiol [Mass/volume] in Serum or Plasma 12 NG/mL 30-100 Below low normal Vitamin D,25-Oh,total,ia [facility]) ID Date Data Source [id number] 03/09/2021 12:00:00 AM EDT [facility]) Name Value Range Interpretation Code Description Data Serena rce(s) Supporting Document(s) Thyrotropin [Units/volume] in Serum or Plasma 1.43 mIU/L 0.40-4.50 Tsh [facility]) ID Date Data Source [id number] 03/09/2021 12:00:00 AM EDT [place] ([facility]) Name Value Range Interpretation Code Description Data Serena rce(s) Supporting Document(s) Urea nitrogen [Mass/volume] in Serum or Plasma 13 mg/dL 7-25 Urea Nitrogen (BUN) [place] ([facility]) Glucose [Mass/volume] in Serum or Plasma 98 mg/dL 65-99 Glucose [place] ([facility]) Glomerular filtration rate/1.73 sq M.pre dicted among blacks [Volume Rate/Area] in Serum, Plasma or Blood by Creatinine-based formula (CKD-EPI) 134 mL/min/1.73m2 > or = 60 eGFR [place] (No [facility]) Glomerular filtration rate/1.73 sq M.pre dicted among non-blacks [Volume Rate/Area] in Serum, Plasma or Blood by Creatinine-based formula (CKD-EPI) 115 mL/min/1.73m2 > or = 60 eGFR Non-afr. [place] ([facility]) Sodium [Moles/volume] in Serum or Plasma 138 mmol/L 135-146 Sodium [place] ([facility]) Urea nitrogen/Creatinine [Mass Ratio] in Serum or Plasma not applic able 6-22 BUN/creatinine Ratio [place] ([facility]) Creatinine [Mass/volume] in Serum or Plasma 0.88 mg/dL 0.60-1.35 Creatinine [place] ([facility]) Calcium [Mass/volume] in Serum or Plasma 9.7 mg/dL 8.6-10.3 Calcium [place] ([facility]) Protein [Mass/volume] in Serum or Plasma 7.4 g/dL 6.1-8.1 Protein, Total [place] ([facility]) Potassium [Moles/volume] in Serum or Plasma 4.0 mmol/L 3.5-5.3 Potassium [place] ([facility]) Carbon dioxide, total [Moles/volume] in Serum or Plasma 28 mmol/L 20-32 Carbon Dioxide [place] ([facility]) Chloride [Moles/volume] in Serum or Plasma 102 mmol/L 98-110 Chloride [place] ([facility]) Globulin [Mass/volume] in Serum by calculation 3.0 g/dL_(calc) 1.9- 3.7 Globulin [place] ([facility]) Bilirubin.total [Mass/volume] in Serum or Plasma 0.7 mg/dL 0.2-1 .2 Bilirubin, Total [place] ([facility]) Alkaline phosphatase [Enzymatic activity/volume] in Serum or Plasma 51 U/L 36-130 Alkaline Phosphatase [place] ([facility]) Albumin [Mass/volume] in Serum or Plasma 4.4 g/dL 3.6-5.1 Albumin [place] ([facility]) Albumin/Globulin [Mass Ratio] in Serum or Plasma 1.5 (calc) 1.0-2 .5 Albumin/globulin Ratio [place] ([facility]) Aspartate aminotransferase [Enzymatic activity/volume] in Serum or Plasma 27 U/L 10-40 Ast [place] ([facility]) Alanine aminotransferase [Enzymatic activity/volume] in Seru m or Plasma 40 U/L 9-46 Alt [place] ([facility]) ID Date Data Source [id number] 03/09/2021 12:00:00 AM EDT [facility]) Name Value Range Interpretation Code Description Data Serena rce(s) Supporting Document(s) HIV 1+2 Ab+HIV1 p24 Ag [Presence] in Serum or Plasma b y Immunoassay non-reactive non-reactive HIV Ag/Ab, 4TH Gen [place] ([facility]) ID Date Data Source [id number] 03/09/2021 12:00:00 AM EDT [facility]) Name Value Range Interpretation Code Description Data Serena rce(s) Supporting Document(s) Hepatitis B virus surface Ag [Presence] in Serum or Pl asma by Immunoassay non-reactive non-reactive Hepatitis B Surface Antigen [place] ([facility]) Hepatitis A virus IgM Ab [Presence] in Serum or Plasma by Immunoassay non-reactive non-reactive Hepatitis a IgM [place] ([facility]) Hepatitis B virus core IgM Ab [Presence] in Serum or P lasma by Immunoassay non-reactive non-reactive Hepatitis B Core Antibody (IgM) [place] ([facility]) Hepatitis C virus Ab Signal/Cutoff in Serum or Plasma by Immunoassa y <1.00 Index [place] ([facility]) Hepatitis C virus Ab [Presence] in Serum or Plasma by Immuno assay non-reactive non-reactive Hepatitis C Antibody [facility] ([facility]) ID Date Data Source [id number] 03/09/2021 12:00:00 AM EDT [place] ([facility]) Name Value Range Interpretation Code Description Data Serena rce(s) Supporting Document(s) Cholesterol [Mass/volume] in Serum or Plasma 230 mg/dL <200 Above high normal Cholesterol, Total [place] ([facility]) Cholesterol in LDL [Mass/volume] in Serum or Plasma by calculation 149 mg/dL_(calc) Above high normal LDL-cholesterol [facility] ([facility]) Triglyceride [Mass/volume] in Serum or Plasma 179 mg/dL <150 Above high normal Triglycerides [place] ([facility]) Cholesterol in HDL [Mass/volume] in Serum or Plasma 50 mg/dL > or = 40 HDL Cholesterol [place] ([facility]) Cholesterol non HDL [Mass/volume] in Serum or Plasma 180 mg/dL_( calc) <130 Above high normal Non HDL Cholesterol [facility] ([facility]) Cholesterol.total/Cholesterol in HDL [Mass Ratio] in Serum o r Plasma 4.6 (calc) <5.0 Chol/hdlc Ratio [facility] ([facility]) ID Date Data Source [id number] 03/09/2021 12:00:00 AM EDT [place] ([facility]) Name Value Range Interpretation Code Description Data Serena rce(s) Supporting Document(s) Reagin Ab [Presence] in Serum by RPR non-reactive non-reactive RPR (DX) W/refl Titer and Confirmatory [facility] ID Date Data Source [id number] 03/09/2021 12:00:00 AM EDT [facility]) Name Value Range Interpretation Code Description Data Serena rce(s) Supporting Document(s) Hemoglobin A1c/Hemoglobin.total in Blood 4.9 %_of_total_HGB <5.7 Hemoglobin a1C [facility]) ID Date Data Source [id number] 03/09/2021 12:00:00 AM EDT [facility]) Name Value Range Interpretation Code Description Data Serena rce(s) Supporting Document(s) Calcidiol [Mass/volume] in Serum or Plasma 12 NG/mL 30-100 Below low normal Vitamin D,25-Oh,total,ia [facility]) ID Date Data Source [id number] 03/09/2021 12:00:00 AM EDT [facility]) Name Value Range Interpretation Code Description Data Serena rce(s) Supporting Document(s) Thyrotropin [Units/volume] in Serum or Plasma 1.43 mIU/L 0.40-4.50 Tsh [facility]) ID Date Data Source [id number] 03/09/2021 12:00:00 AM EDT [facility]) Name Value Range Interpretation Code Description Data Serena rce(s) Supporting Document(s) Urea nitrogen [Mass/volume] in Serum or Plasma 13 mg/dL 7-25 Urea Nitrogen (BUN) [place] ([facility]) Glucose [Mass/volume] in Serum or Plasma 98 mg/dL 65-99 Glucose [facility]) Creatinine [Mass/volume] in Serum or Plasma 0.88 mg/dL 0.60-1.35 Creatinine [place] ([facility]) Glomerular filtration rate/1.73 sq M.pre dicted among non-blacks [Volume Rate/Area] in Serum, Plasma or Blood by Creatinine-based formula (CKD-EPI) 115 mL/min/1.73m2 > or = 60 eGFR Non-afr. [place] [facility] ([facility]) Urea nitrogen/Creatinine [Mass Ratio] in Serum or Plasma not applic able 6-22 BUN/creatinine Ratio AKASH ([facility]) Sodium [Moles/volume] in Serum or Plasma 138 mmol/L 135-146 Sodium AKASH ([facility]) Glomerular filtration rate/1.73 sq M.pre dicted among blacks [Volume Rate/Area] in Serum, Plasma or Blood by Creatinine-based formula (CKD-EPI) 134 mL/min/1.73m2 > or = 60 eGFR AKASH ([facility]) Potassium [Moles/volume] in Serum or Plasma 4.0 mmol/L 3.5-5.3 Potassium AKASH ([facility]) Chloride [Moles/volume] in Serum or Plasma 102 mmol/L 98-110 Chloride [place] ([facility]) Carbon dioxide, total [Moles/volume] in Serum or Plasma 28 mmol/L 20-32 Carbon Dioxide AKASH ([facility]) Protein [Mass/volume] in Serum or Plasma 7.4 g/dL 6.1-8.1 Protein, Total AKASH ([facility]) Albumin [Mass/volume] in Serum or Plasma 4.4 g/dL 3.6-5.1 Albumin [place] ([facility]) Calcium [Mass/volume] in Serum or Plasma 9.7 mg/dL 8.6-10.3 Calcium [place] ([facility]) Globulin [Mass/volume] in Serum by calculation 3.0 g/dL_(calc) 1.9- 3.7 Globulin [place] ([facility]) Bilirubin.total [Mass/volume] in Serum or Plasma 0.7 mg/dL 0.2-1 .2 Bilirubin, Total [place] ([facility]) Albumin/Globulin [Mass Ratio] in Serum or Plasma 1.5 (calc) 1.0-2 .5 Albumin/globulin Ratio AKASH ([facility]) Alanine aminotransferase [Enzymatic activity/volume] in Seru m or Plasma 40 U/L 9-46 Alt [place] ([facility]) Aspartate aminotransferase [Enzymatic activity/volume] in Serum or Plasma 27 U/L 10-40 Ast AKASH ([facility]) Alkaline phosphatase [Enzymatic activity/volume] in Serum or Plasma 51 U/L 36-130 Alkaline Phosphatase [place] ([facility]) ID Date Data Source [id number] 03/09/2021 12:00:00 AM EDT AKASH ([facility]) Name Value Range Interpretation Code Description Data Serena rce(s) Supporting Document(s) HIV 1+2 Ab+HIV1 p24 Ag [Presence] in Serum or Plasma b y Immunoassay non-reactive non-reactive HIV Ag/Ab, 4TH Gen AKASH ([facility]) ID Date Data Source [id number] 03/09/2021 12:00:00 AM EDT AKASH ([facility]) Name Value Range Interpretation Code Description Data Serena rce(s) Supporting Document(s) Hepatitis B virus surface Ag [Presence] in Serum or Pl asma by Immunoassay non-reactive non-reactive Hepatitis B Surface Antigen ATHE ([facility]) Hepatitis A virus IgM Ab [Presence] in Serum or Plasma by Immunoassay non-reactive non-reactive Hepatitis a IgM AKASH ([facility]) Hepatitis C virus Ab Signal/Cutoff in Serum or Plasma by Immunoassa y <1.00 Index AKASH ([facility]) Hepatitis B virus core IgM Ab [Presence] in Serum or P lasma by Immunoassay non-reactive non-reactive Hepatitis B Core Antibody (IgM) AKASH ([facility]) Hepatitis C virus Ab [Presence] in Serum or Plasma by Immuno assay non-reactive non-reactive Hepatitis C Antibody AKASH ([facility]) ID Date Data Source [id number] 03/09/2021 12:00:00 AM EDT AKASH ([facility]) Name Value Range Interpretation Code Description Data Serena rce(s) Supporting Document(s) Cholesterol [Mass/volume] in Serum or Plasma 230 mg/dL <200 Above high normal Cholesterol, Total AKASH ([facility]) Triglyceride [Mass/volume] in Serum or Plasma 179 mg/dL <150 Above high normal Triglycerides AKASH ([facility]) Cholesterol in HDL [Mass/volume] in Serum or Plasma 50 mg/dL > or = 40 HDL Cholesterol AKASH ([facility]) Cholesterol.total/Cholesterol in HDL [Mass Ratio] in Serum o r Plasma 4.6 (calc) <5.0 Chol/hdlc Ratio AKASH ([facility]) Cholesterol non HDL [Mass/volume] in Serum or Plasma 180 mg/dL_( calc) <130 Above high normal Non HDL Cholesterol AKASH ([facility]) Cholesterol in LDL [Mass/volume] in Serum or Plasma by calculation 149 mg/dL_(calc) Above high normal LDL-cholesterol [facility]) ID Date Data Source [id number] 03/09/2021 12:00:00 AM EDT [facility]) Name Value Range Interpretation Code Description Data Serena rce(s) Supporting Document(s) Reagin Ab [Presence] in Serum by RPR non-reactive non-reactive RPR (DX) W/refl Titer and Confirmatory Testing [facility]) ID Date Data Source [id number] 03/09/2021 12:00:00 AM EDT [facility]) Name Value Range Interpretation Code Description Data Serena rce(s) Supporting Document(s) Hemoglobin A1c/Hemoglobin.total in Blood 4.9 %_of_total_HGB <5.7 Hemoglobin a1C [facility]) ID Date Data Source [id number] 03/09/2021 12:00:00 AM EDT [facility]) Name Value Range Interpretation Code Description Data Serena rce(s) Supporting Document(s) Calcidiol [Mass/volume] in Serum or Plasma 12 NG/mL 30-100 Below low normal Vitamin D,25-Oh,total,ia [facility]) ID Date Data Source [id number] 03/09/2021 12:00:00 AM EDT [facility]) Name Value Range Interpretation Code Description Data Serena rce(s) Supporting Document(s) Thyrotropin [Units/volume] in Serum or Plasma 1.43 mIU/L 0.40-4.50 Tsh [place] ([facility]) ID Date Data Source [id number] 03/09/2021 12:00:00 AM EDT [place] ([facility]) Name Value Range Interpretation Code Description Data Serena rce(s) Supporting Document(s) Urea nitrogen [Mass/volume] in Serum or Plasma 13 mg/dL 7-25 Urea Nitrogen (BUN) AKASH ([facility]) Glucose [Mass/volume] in Serum or Plasma 98 mg/dL 65-99 Glucose AKASH ([facility]) Urea nitrogen/Creatinine [Mass Ratio] in Serum or Plasma not applic able 6-22 BUN/creatinine Ratio [place] ([facility]) Creatinine [Mass/volume] in Serum or Plasma 0.88 mg/dL 0.60-1.35 Creatinine AKASH ([facility]) Glomerular filtration rate/1.73 sq M.pre dicted among blacks [Volume Rate/Area] in Serum, Plasma or Blood by Creatinine-based formula (CKD-EPI) 134 mL/min/1.73m2 > or = 60 eGFR AKASH ([facility]) Glomerular filtration rate/1.73 sq M.pre dicted among non-blacks [Volume Rate/Area] in Serum, Plasma or Blood by Creatinine-based formula (CKD-EPI) 115 mL/min/1.73m2 > or = 60 eGFR Non-afr. [place] AKASH ([facility]) Chloride [Moles/volume] in Serum or Plasma 102 mmol/L 98-110 Chloride AKASH ([facility]) Calcium [Mass/volume] in Serum or Plasma 9.7 mg/dL 8.6-10.3 Calcium AKASH ([facility]) Sodium [Moles/volume] in Serum or Plasma 138 mmol/L 135-146 [facility] Carbon dioxide, total [Moles/volume] in Serum or Plasma 28 mmol/L 20-32 Carbon Dioxide AKASH ([facility]) Potassium [Moles/volume] in Serum or Plasma 4.0 mmol/L 3.5-5.3 Potassium [facility] ([facility]) Albumin/Globulin [Mass Ratio] in Serum or Plasma 1.5 (calc) 1.0-2 .5 Albumin/globulin Ratio [place] ([facility]) Albumin [Mass/volume] in Serum or Plasma 4.4 g/dL 3.6-5.1 Albumin [place] ([facility]) Globulin [Mass/volume] in Serum by calculation 3.0 g/dL_(calc) 1.9- 3.7 Globulin [place] ([facility]) Protein [Mass/volume] in Serum or Plasma 7.4 g/dL 6.1-8.1 Protein, Total [place] ([facility]) Aspartate aminotransferase [Enzymatic activity/volume] in Serum or Plasma 27 U/L 10-40 Ast [place] ([facility]) Bilirubin.total [Mass/volume] in Serum or Plasma 0.7 mg/dL 0.2-1 .2 Bilirubin, Total [place] ([facility]) Alkaline phosphatase [Enzymatic activity/volume] in Serum or Plasma 51 U/L 36-130 Alkaline Phosphatase [place] ([facility]) Alanine aminotransferase [Enzymatic activity/volume] in Seru m or Plasma 40 U/L 9-46 Alt [place] ([facility]) ID Date Data Source [id number] 03/09/2021 12:00:00 AM EDT [place] ([facility]) Name Value Range Interpretation Code Description Data Serena rce(s) Supporting Document(s) HIV 1+2 Ab+HIV1 p24 Ag [Presence] in Serum or Plasma b y Immunoassay non-reactive non-reactive HIV Ag/Ab, 4TH Gen [place] ([facility]) ID Date Data Source [id number] 03/09/2021 12:00:00 AM EDT [facility]) Name Value Range Interpretation Code Description Data Serena rce(s) Supporting Document(s) Hepatitis C virus Ab [Presence] in Serum or Plasma by Immuno assay non-reactive non-reactive Hepatitis C Antibody [place] ([facility]) Hepatitis A virus IgM Ab [Presence] in Serum or Plasma by Immunoassay non-reactive non-reactive Hepatitis a IgM AKASH ([facility]) Hepatitis B virus surface Ag [Presence] in Serum or Pl asma by Immunoassay non-reactive non-reactive Hepatitis B Surface Antigen ATHE NA ([facility]) Hepatitis B virus core IgM Ab [Presence] in Serum or P lasma by Immunoassay non-reactive non-reactive Hepatitis B Core Antibody (IgM) AKASH ([facility]) Hepatitis C virus Ab Signal/Cutoff in Serum or Plasma by Immunoassa y <1.00 Index [facility]ASH ([facility]) ID Date Data Source [id number] 03/09/2021 12:00:00 AM EDT [facility] Name Value Range Interpretation Code Description Data Serena rce(s) Supporting Document(s) Cholesterol in HDL [Mass/volume] in Serum or Plasma 50 mg/dL > or = 40 HDL Cholesterol AK[facility] ([facility]) Triglyceride [Mass/volume] in Serum or Plasma 179 mg/dL <150 Above high normal Triglycerides [facility]ASH ([facility]) Cholesterol [Mass/volume] in Serum or Plasma 230 mg/dL <200 Above high normal Cholesterol, Total [place] ([facility]) Cholesterol.total/Cholesterol in HDL [Mass Ratio] in Serum o r Plasma 4.6 (calc) <5.0 Chol/hdlc Ratio [facility] ([facility]) Cholesterol in LDL [Mass/volume] in Serum or Plasma by calculation 149 mg/dL_(calc) Above high normal LDL-cholesterol AK[facility] ([facility]) Cholesterol non HDL [Mass/volume] in Serum or Plasma 180 mg/dL_( calc) <130 Above high normal Non HDL Cholesterol [facility] ([facility]) ID Date Data Source [id number] 03/09/2021 12:00:00 AM EDT [facility]) Name Value Range Interpretation Code Description Data Serena rce(s) Supporting Document(s) Reagin Ab [Presence] in Serum by RPR non-reactive non-reactive RPR (DX) W/refl Titer and Confirmatory Testing AKASH ([facility]) ID Date Data Source [id number] 03/09/2021 12:00:00 AM EDT [facility]) Name Value Range Interpretation Code Description Data Serena rce(s) Supporting Document(s) Hemoglobin A1c/Hemoglobin.total in Blood 4.9 %_of_total_HGB <5.7 Hemoglobin a1C [facility]) ID Date Data Source [id number] 03/09/2021 12:00:00 AM EDT [facility]) Name Value Range Interpretation Code Description Data Serena rce(s) Supporting Document(s) Calcidiol [Mass/volume] in Serum or Plasma 12 NG/mL 30-100 Below low normal Vitamin D,25-Oh,total,ia [facility]) ID Date Data Source [id number] 03/09/2021 12:00:00 AM EDT [facility]) Name Value Range Interpretation Code Description Data Serena rce(s) Supporting Document(s) Thyrotropin [Units/volume] in Serum or Plasma 1.43 mIU/L 0.40-4.50 Tsh [facility]) ID Date Data Source [id number] 03/09/2021 12:00:00 AM EDT [facility]) Name Value Range Interpretation Code Description Data Serena rce(s) Supporting Document(s) Glucose [Mass/volume] in Serum or Plasma 98 mg/dL 65-99 Glucose AKASH ([facility]) Urea nitrogen [Mass/volume] in Serum or Plasma 13 mg/dL 7-25 Urea Nitrogen (BUN) AKASH ([facility]) Creatinine [Mass/volume] in Serum or Plasma 0.88 mg/dL 0.60-1.35 Creatinine AKASH ([facility]) Glomerular filtration rate/1.73 sq M.pre dicted among non-blacks [Volume Rate/Area] in Serum, Plasma or Blood by Creatinine-based formula (CKD-EPI) 115 mL/min/1.73m2 > or = 60 eGFR Non-afr. [place] AKASH ([facility]) Sodium [Moles/volume] in Serum or Plasma 138 mmol/L 135-146 Sodium AKASH ([facility]) Glomerular filtration rate/1.73 sq M.pre dicted among blacks [Volume Rate/Area] in Serum, Plasma or Blood by Creatinine-based formula (CKD-EPI) 134 mL/min/1.73m2 > or = 60 eGFR AKASH ([facility]) Urea nitrogen/Creatinine [Mass Ratio] in Serum or Plasma not applic able 6-22 BUN/creatinine Ratio AKASH ([facility]) Potassium [Moles/volume] in Serum or Plasma 4.0 mmol/L 3.5-5.3 Potassium AKASH ([facility]) Carbon dioxide, total [Moles/volume] in Serum or Plasma 28 mmol/L 20-32 Carbon Dioxide AKASH ([facility]) Calcium [Mass/volume] in Serum or Plasma 9.7 mg/dL 8.6-10.3 Calcium [facility] ([facility]) Chloride [Moles/volume] in Serum or Plasma 102 mmol/L 98-110 Chloride AK[facility] ([facility]) Globulin [Mass/volume] in Serum by calculation 3.0 g/dL_(calc) 1.9- 3.7 Globulin [place] ([facility]) Albumin/Globulin [Mass Ratio] in Serum or Plasma 1.5 (calc) 1.0-2 .5 Albumin/globulin Ratio AKASH ([facility]) Protein [Mass/volume] in Serum or Plasma 7.4 g/dL 6.1-8.1 Protein, Total [place] ([facility]) Albumin [Mass/volume] in Serum or Plasma 4.4 g/dL 3.6-5.1 Albumin [facility] ([facility]) Aspartate aminotransferase [Enzymatic activity/volume] in Serum or Plasma 27 U/L 10-40 Ast [facility]ASH ([facility]) Alkaline phosphatase [Enzymatic activity/volume] in Serum or Plasma 51 U/L 36-130 Alkaline Phosphatase [place] ([facility]) Alanine aminotransferase [Enzymatic activity/volume] in Seru m or Plasma 40 U/L 9-46 Alt AKASH ([facility]) Bilirubin.total [Mass/volume] in Serum or Plasma 0.7 mg/dL 0.2-1 .2 Bilirubin, Total [place] ([facility]) ID Date Data Source [id number] 03/09/2021 12:00:00 AM EDT [place] ([facility]) Name Value Range Interpretation Code Description Data Serena rce(s) Supporting Document(s) HIV 1+2 Ab+HIV1 p24 Ag [Presence] in Serum or Plasma b y Immunoassay non-reactive non-reactive HIV Ag/Ab, 4TH Gen [place] ([facility]) ID Date Data Source [id number] 03/09/2021 12:00:00 AM EDT [place] ([facility]) Name Value Range Interpretation Code Description Data Serena rce(s) Supporting Document(s) Hepatitis A virus IgM Ab [Presence] in Serum or Plasma by Immunoassay non-reactive non-reactive Hepatitis a IgM [place] ([facility]) Hepatitis B virus surface Ag [Presence] in Serum or Pl asma by Immunoassay non-reactive non-reactive Hepatitis B Surface Antigen [facility] ([facility]) Hepatitis B virus core IgM Ab [Presence] in Serum or P lasma by Immunoassay non-reactive non-reactive Hepatitis B Core Antibody (IgM) [facility]ASH ([facility]) Hepatitis C virus Ab [Presence] in Serum or Plasma by Immuno assay non-reactive non-reactive Hepatitis C Antibody [facility] ([facility]) Hepatitis C virus Ab Signal/Cutoff in Serum or Plasma by Immunoassa y <1.00 Index AKASH ([facility]) ID Date Data Source [id number] 03/09/2021 12:00:00 AM EDT [facility]) Name Value Range Interpretation Code Description Data Serena rce(s) Supporting Document(s) Cholesterol [Mass/volume] in Serum or Plasma 230 mg/dL <200 Above high normal Cholesterol, Total [facility] ([facility]) Cholesterol in HDL [Mass/volume] in Serum or Plasma 50 mg/dL > or = 40 HDL Cholesterol AKASH ([facility]) Triglyceride [Mass/volume] in Serum or Plasma 179 mg/dL <150 Above high normal Triglycerides AKASH ([facility]) Cholesterol in LDL [Mass/volume] in Serum or Plasma by calculation 149 mg/dL_(calc) Above high normal LDL-cholesterol AKASH ([facility]) Cholesterol.total/Cholesterol in HDL [Mass Ratio] in Serum o r Plasma 4.6 (calc) <5.0 Chol/hdlc Ratio AKASH ([facility]) Cholesterol non HDL [Mass/volume] in Serum or Plasma 180 mg/dL_( calc) <130 Above high normal Non HDL Cholesterol AKASH ([facility]) ID Date Data Source [id number] 03/09/2021 12:00:00 AM EDT [facility]) Name Value Range Interpretation Code Description Data Serena rce(s) Supporting Document(s) Reagin Ab [Presence] in Serum by RPR non-reactive non-reactive RPR (DX) W/refl Titer and Confirmatory Testing [facility]) ID Date Data Source [id number] 03/09/2021 12:00:00 AM EDT [facility]) Name Value Range Interpretation Code Description Data Serena rce(s) Supporting Document(s) Hemoglobin A1c/Hemoglobin.total in Blood 4.9 %_of_total_HGB <5.7 [facility]oglobin [facility]C [facility] ID Date Data Source [id number] 03/09/2021 12:00:00 AM EDT [facility]) Name Value Range Interpretation Code Description Data Serena rce(s) Supporting Document(s) Calcidiol [Mass/volume] in Serum or Plasma 12 NG/mL 30-100 Below low normal Vitamin D,25-Oh,total,ia [place] ([facility]) ID Date Data Source [id number] 03/09/2021 12:00:00 AM EDT [facility]) Name Value Range Interpretation Code Description Data Serena rce(s) Supporting Document(s) Thyrotropin [Units/volume] in Serum or Plasma 1.43 mIU/L 0.40-4.50 Tsh [facility]) ID Date Data Source [id number] 03/09/2021 12:00:00 AM EDT [facility]) Name Value Range Interpretation Code Description Data Serena rce(s) Supporting Document(s) Glucose [Mass/volume] in Serum or Plasma 98 mg/dL 65-99 Glucose [facility]) Glomerular filtration rate/1.73 sq M.pre dicted among non-blacks [Volume Rate/Area] in Serum, Plasma or Blood by Creatinine-based formula (CKD-EPI) 115 mL/min/1.73m2 > or = 60 eGFR Non-afr. [place] AKASH ([facility]) Urea nitrogen [Mass/volume] in Serum or Plasma 13 mg/dL 7-25 Urea Nitrogen (BUN) [facility]) Creatinine [Mass/volume] in Serum or Plasma 0.88 mg/dL 0.60-1.35 Creatinine [facility] ([facility]) Potassium [Moles/volume] in Serum or Plasma 4.0 mmol/L 3.5-5.3 Potassium [place] ([facility]) Urea nitrogen/Creatinine [Mass Ratio] in Serum or Plasma not applic able 6-22 BUN/creatinine Ratio AKASH ([facility]) Sodium [Moles/volume] in Serum or Plasma 138 mmol/L 135-146 [facility]odium [facility] Chloride [Moles/volume] in Serum or Plasma 102 mmol/L 98-110 Chloride [facility]) Glomerular filtration rate/1.73 sq M.pre dicted among blacks [Volume Rate/Area] in Serum, Plasma or Blood by Creatinine-based formula (CKD-EPI) 134 mL/min/1.73m2 > or = 60 eGFR [facility] ([facility]) Carbon dioxide, total [Moles/volume] in Serum or Plasma 28 mmol/L 20-32 Carbon Dioxide [place] ([facility]) Albumin [Mass/volume] in Serum or Plasma 4.4 g/dL 3.6-5.1 Albumin [place] ([facility]) Protein [Mass/volume] in Serum or Plasma 7.4 g/dL 6.1-8.1 Protein, Total [place] ([facility]) Calcium [Mass/volume] in Serum or Plasma 9.7 mg/dL 8.6-10.3 Calcium [place] ([facility]) Alkaline phosphatase [Enzymatic activity/volume] in Serum or Plasma 51 U/L 36-130 Alkaline Phosphatase [place] ([facility]) Globulin [Mass/volume] in Serum by calculation 3.0 g/dL_(calc) 1.9- 3.7 Globulin [place] ([facility]) Bilirubin.total [Mass/volume] in Serum or Plasma 0.7 mg/dL 0.2-1 .2 Bilirubin, Total [place] ([facility]) Albumin/Globulin [Mass Ratio] in Serum or Plasma 1.5 (calc) 1.0-2 .5 Albumin/globulin Ratio [place] ([facility]) Aspartate aminotransferase [Enzymatic activity/volume] in Serum or Plasma 27 U/L 10-40 Ast [place] ([facility]) Alanine aminotransferase [Enzymatic activity/volume] in Seru m or Plasma 40 U/L 9-46 Alt [place] ([facility]) ID Date Data Source [id number] 03/09/2021 12:00:00 AM EDT [place] ([facility]) Name Value Range Interpretation Code Description Data Serena rce(s) Supporting Document(s) HIV 1+2 Ab+HIV1 p24 Ag [Presence] in Serum or Plasma b y Immunoassay non-reactive non-reactive HIV Ag/Ab, 4TH Gen [facility]) ID Date Data Source [id number] 03/09/2021 12:00:00 AM EDT [place] ([facility]) Name Value Range Interpretation Code Description Data Serena rce(s) Supporting Document(s) Hepatitis A virus IgM Ab [Presence] in Serum or Plasma by Immunoassay non-reactive non-reactive Hepatitis a IgM [facility] ([facility]) Hepatitis B virus core IgM Ab [Presence] in Serum or P lasma by Immunoassay non-reactive non-reactive Hepatitis B Core Antibody (IgM) [facility]ASH ([facility]) Hepatitis B virus surface Ag [Presence] in Serum or Pl asma by Immunoassay non-reactive non-reactive Hepatitis B Surface Antigen ATHE NA ([facility]) Hepatitis C virus Ab [Presence] in Serum or Plasma by Immuno assay non-reactive non-reactive Hepatitis C Antibody KAASH ([facility]) Hepatitis C virus Ab Signal/Cutoff in Serum or Plasma by Immunoassa y <1.00 Index AKASH ([facility]) ID Date Data Source [id number] 03/09/2021 12:00:00 AM EDT AKASH ([facility]) Name Value Range Interpretation Code Description Data Serena rce(s) Supporting Document(s) Cholesterol [Mass/volume] in Serum or Plasma 230 mg/dL <200 Above high normal Cholesterol, Total [facility] ([facility]) Cholesterol in HDL [Mass/volume] in Serum or Plasma 50 mg/dL > or = 40 HDL Cholesterol [facility] ([facility]) Triglyceride [Mass/volume] in Serum or Plasma 179 mg/dL <150 Above high normal Triglycerides AKASH ([facility]) Cholesterol.total/Cholesterol in HDL [Mass Ratio] in Serum o r Plasma 4.6 (calc) <5.0 Chol/hdlc Ratio AKASH ([facility]) Cholesterol in LDL [Mass/volume] in Serum or Plasma by calculation 149 mg/dL_(calc) Above high normal LDL-cholesterol AKASH ([facility]) Cholesterol non HDL [Mass/volume] in Serum or Plasma 180 mg/dL_( calc) <130 Above high normal Non HDL Cholesterol [facility]ASH ([facility]) ID Date Data Source [id number] 10/22/2020 12:00:00 AM EST [facility] Name Value Range Interpretation Code Description Data Serena rce(s) Supporting Document(s) [facility]2 [facility] and reported by [facility]. Procedure Social History No Information Vital Signs ID Date Data Source [id number] Name Value Range Interpretation Code Description Data Source(s) Diastolic blood pressure 75 mm[Hg] 75 mm[Hg] [facility] ([facility]) Body height 65 [in_i] 65 [in_i] [facility] ([facility]) Body mass index (BMI) [Ratio] 38.7 kg/m2 38.7 k g/m2 AKASH ([facility]) Systolic blood pressure 110 mm[Hg] 110 mm[Hg] A [facility] ([facility]) Body weight 3718 [oz_av] 3718 [oz_av] AKASH ([facility]) Diastolic blood pressure 75 mm[Hg] 75 mm[Hg] AKASH ([facility]) Body height 65 [in_i] 65 [in_i] AKASH ([facility]) Body mass index (BMI) [Ratio] 38.7 kg/m2 38.7 k g/m2 AKASH ([facility]) Systolic blood pressure 110 mm[Hg] 110 mm[Hg] A [facility] ([facility]) Body weight 3718 [oz_av] 3718 [oz_av] AKASH ([facility]) Diastolic blood pressure 78 mm[Hg] 78 mm[Hg] AKASH ([facility]) Body height 65 [in_i] 65 [in_i] AKASH ([facility]) Body mass index (BMI) [Ratio] 39 kg/m2 39 kg/ m2 AKASH ([facility]) Systolic blood pressure 117 mm[Hg] 117 mm[Hg] A [facility] ([facility]) Body weight 3748 [oz_av] 3748 [oz_av] AKASH ([facility]) Body weight 3748 [oz_av] 3748 [oz_av] AKASH ([facility]) Diastolic blood pressure 78 mm[Hg] 78 mm[Hg] AKASH ([facility]) Body height 65 [in_i] 65 [in_i] AKASH ([facility]) Body mass index (BMI) [Ratio] 39 kg/m2 39 kg/ m2 AK[facility] ([facility]) Systolic blood pressure 117 mm[Hg] 117 mm[Hg] [facility] Body mass index (BMI) [Ratio] 39 kg/m2 39 kg/ m2 AKASH ([facility]) Diastolic blood pressure 78 mm[Hg] 78 mm[Hg] AKASH ([facility]) Body height 65 [in_i] 65 [in_i] AKASH ([facility]) Systolic blood pressure 117 mm[Hg] 117 mm[Hg] [facility] Body weight 3748 [oz_av] 3748 [oz_av] AKASH ([facility]) Diastolic blood pressure 78 mm[Hg] 78 mm[Hg] AKASH ([facility]) Body height 65 [in_i] 65 [in_i] AKASH ([facility]) Body mass index (BMI) [Ratio] 39.5 kg/m2 39.5 k g/m2 AKASH ([facility]) Systolic blood pressure 112 mm[Hg] 112 mm[Hg] A THENA ([facility]) Body weight 3794 [oz_av] 3794 [oz_av] AKASH ([facility]) Diastolic blood pressure 78 mm[Hg] 78 mm[Hg] AKASH ([facility]) Body height 65 [in_i] 65 [in_i] AKASH ([facility]) Body mass index (BMI) [Ratio] 39.5 kg/m2 39.5 k g/m2 AK[facility] ([facility]) Systolic blood pressure 112 mm[Hg] 112 mm[Hg] A THENA ([facility]) Body weight 3794 [oz_av] 3794 [oz_av] AKASH ([facility]) Diastolic blood pressure 78 mm[Hg] 78 mm[Hg] AKASH ([facility]) Body height 65 [in_i] 65 [in_i] AKASH ([facility]) Body mass index (BMI) [Ratio] 39.5 kg/m2 39.5 k g/m2 [facility] ([facility]) Systolic blood pressure 112 mm[Hg] 112 mm[Hg] [facility]) Body weight 3794 [oz_av] 3794 [oz_av] AKASH ([facility]) Diastolic blood pressure 78 mm[Hg] 78 mm[Hg] AKASH ([facility]) Diastolic blood pressure 78 mm[Hg] 78 mm[Hg] AKASH ([facility]) Body height 65 [in_i] 65 [in_i] AKASH ([facility]) Body mass index (BMI) [Ratio] 39.5 kg/m2 39.5 k g/m2 AK[facility] ([facility]) Systolic blood pressure 112 mm[Hg] 112 mm[Hg] [facility]) Body weight 3794 [oz_av] 3794 [oz_av] AKASH ([facility]) Body height 65 [in_i] 65 [in_i] AKASH ([facility]) Body mass index (BMI) [Ratio] 39.5 kg/m2 39.5 k g/m2 AKASH ([facility]) Systolic blood pressure 112 mm[Hg] 112 mm[Hg] A THENA ([facility]) Body weight 3794 [oz_av] 3794 [oz_av] AKASH ([facility]) Diastolic blood pressure 78 mm[Hg] 78 mm[Hg] AKASH ([facility]) Body height 65 [in_i] 65 [in_i] AKASH ([facility]) Body mass index (BMI) [Ratio] 39.5 kg/m2 39.5 k g/m2 AKASH ([facility]) Systolic blood pressure 112 mm[Hg] 112 mm[Hg] [facility]) Body weight 3794 [oz_av] 3794 [oz_av] AKASH ([facility]) Diastolic blood pressure 78 mm[Hg] 78 mm[Hg] AKASH ([facility]) Body height 65 [in_i] 65 [in_i] AKASH ([facility]) Body mass index (BMI) [Ratio] 39.5 kg/m2 39.5 k g/m2 AKASH ([facility]) Systolic blood pressure 112 mm[Hg] 112 mm[Hg] A [facility] ([facility]) Body weight 3794 [oz_av] 3794 [oz_av] AKASH ([facility]) Diastolic blood pressure 78 mm[Hg] 78 mm[Hg] AKASH ([facility]) Body height 65 [in_i] 65 [in_i] AKASH ([facility]) Body mass index (BMI) [Ratio] 39.5 kg/m2 39.5 k g/m2 AKASH ([facility]) Systolic blood pressure 112 mm[Hg] 112 mm[Hg] A [facility] ([facility]) Body weight 3794 [oz_av] 3794 [oz_av] AKASH ([facility]) Diastolic blood pressure 78 mm[Hg] 78 mm[Hg] AKASH ([facility]) Body height 65 [in_i] 65 [in_i] AKASH ([facility]) Body mass index (BMI) [Ratio] 39.5 kg/m2 39.5 k g/m2 AKASH ([facility]) Systolic blood pressure 112 mm[Hg] 112 mm[Hg] A [facility] ([facility]) Body weight 3794 [oz_av] 3794 [oz_av] AKASH ([facility]) Diastolic blood pressure 73 mm[Hg] 73 mm[Hg] AKASH ([facility]) Body height 65 [in_i] 65 [in_i] AKASH ([facility]) Body mass index (BMI) [Ratio] 38.9 kg/m2 38.9 k g/m2 AKASH ([facility]) Systolic blood pressure 107 mm[Hg] 107 mm[Hg] A THENA ([facility]) Body weight 3737.6 [oz_av] 3737.6 [oz_av] ATHEN A ([facility]) Diastolic blood pressure 73 mm[Hg] 73 mm[Hg] AKASH ([facility]) Body height 65 [in_i] 65 [in_i] AKASH ([facility]) Body mass index (BMI) [Ratio] 38.9 kg/m2 38.9 k g/m2 AKASH ([facility]) Systolic blood pressure 107 mm[Hg] 107 mm[Hg] A [facility] ([facility]) Body weight 3737.6 [oz_av] 3737.6 [oz_av] ATHEN A ([facility]) Diastolic blood pressure 73 mm[Hg] 73 mm[Hg] AKASH ([facility]) Body height 65 [in_i] 65 [in_i] AKASH ([facility]) Body mass index (BMI) [Ratio] 38.9 kg/m2 38.9 k g/m2 [facility] ([facility]) Systolic blood pressure 107 mm[Hg] 107 mm[Hg] [facility] Body weight 3737.6 [oz_av] 3737.6 [oz_av] ATHEN A ([facility]) Diastolic blood pressure 73 mm[Hg] 73 mm[Hg] AKASH ([facility]) Body height 65 [in_i] 65 [in_i] AKASH ([facility]) Body mass index (BMI) [Ratio] 38.9 kg/m2 38.9 k g/m2 AKASH ([facility]) Systolic blood pressure 107 mm[Hg] 107 mm[Hg] A [facility] ([facility]) Body weight 3737.6 [oz_av] 3737.6 [oz_av] ATHEN A ([facility]) Diastolic blood pressure 73 mm[Hg] 73 mm[Hg] AKASH ([facility]) Body height 65 [in_i] 65 [in_i] AKASH ([facility]) Body mass index (BMI) [Ratio] 38.9 kg/m2 38.9 k g/m2 AK[facility] ([facility]) Systolic blood pressure 107 mm[Hg] 107 mm[Hg] [facility]) Body weight 3737.6 [oz_av] 3737.6 [oz_av] ATHEN A ([facility]) Diastolic blood pressure 73 mm[Hg] 73 mm[Hg] AKASH ([facility]) Body height 65 [in_i] 65 [in_i] AKASH ([facility]) Body mass index (BMI) [Ratio] 38.9 kg/m2 38.9 k g/m2 AKASH ([facility]) Systolic blood pressure 107 mm[Hg] 107 mm[Hg] A [facility] ([facility]) Body weight 3737.6 [oz_av] 3737.6 [oz_av] ATHEN A ([facility]) Diastolic blood pressure 73 mm[Hg] 73 mm[Hg] AKASH ([facility]) Body height 65 [in_i] 65 [in_i] AKASH ([facility]) Body mass index (BMI) [Ratio] 38.9 kg/m2 38.9 k g/m2 AKASH ([facility]) Systolic blood pressure 107 mm[Hg] 107 mm[Hg] [facility]) Body weight 3737.6 [oz_av] 3737.6 [oz_av] ATHEN A ([facility]) Diastolic blood pressure 73 mm[Hg] 73 mm[Hg] AKASH ([facility]) Body height 65 [in_i] 65 [in_i] AKASH ([facility]) Body mass index (BMI) [Ratio] 38.9 kg/m2 38.9 k g/m2 AKASH ([facility]) Systolic blood pressure 107 mm[Hg] 107 mm[Hg] A [facility] ([facility]) Body weight 3737.6 [oz_av] 3737.6 [oz_av] ATHEN A ([facility]) Diastolic blood pressure 73 mm[Hg] 73 mm[Hg] AKASH ([facility]) Body height 65 [in_i] 65 [in_i] AKASH ([facility]) Body mass index (BMI) [Ratio] 38.9 kg/m2 38.9 k g/m2 AK[facility] ([facility]) Systolic blood pressure 107 mm[Hg] 107 mm[Hg] [facility]) Body weight 3737.6 [oz_av] 3737.6 [oz_av] ATHEN A ([facility]) Diastolic blood pressure 73 mm[Hg] 73 mm[Hg] AKASH ([facility]) Body height 65 [in_i] 65 [in_i] AKASH ([facility]) Body mass index (BMI) [Ratio] 38.9 kg/m2 38.9 k g/m2 AK[facility] ([facility]) Systolic blood pressure 107 mm[Hg] 107 mm[Hg] A THENA ([facility]) Body weight 3737.6 [oz_av] 3737.6 [oz_av] ATHEN A ([facility]) Body height 65 [in_i] 65 [in_i] AKASH ([facility]) Body height 65 [in_i] 65 [in_i] AKASH ([facility]) Body height 65 [in_i] 65 [in_i] AKASH ([facility]) Body height 65 [in_i] 65 [in_i] AKASH ([facility]) Body height 65 [in_i] 65 [in_i] AKASH ([facility]) Body height 65 [in_i] 65 [in_i] AKASH ([facility]) Body height 65 [in_i] 65 [in_i] AKASH ([facility]) Body height 65 [in_i] 65 [in_i] AK[facility] ([facility]) Body height 65 [in_i] 65 [in_i] AKASH ([facility]) Body height 65 [in_i] 65 [in_i] AKASH ([facility]) Diastolic blood pressure 82 mm[Hg] 82 mm[Hg] AKASH ([facility]) Body height 65 [in_i] 65 [in_i] AKASH ([facility]) Body mass index (BMI) [Ratio] 38.8 kg/m2 38.8 k g/m2 AKASH ([facility]) Systolic blood pressure 123 mm[Hg] 123 mm[Hg] A THENA ([facility]) Body weight 3731.2 [oz_av] 3731.2 [oz_av] ATHEN A ([facility]) Diastolic blood pressure 82 mm[Hg] 82 mm[Hg] AKASH ([facility]) Body height 65 [in_i] 65 [in_i] AKASH ([facility]) Body mass index (BMI) [Ratio] 38.8 kg/m2 38.8 k g/m2 AK[facility] ([facility]) Systolic blood pressure 123 mm[Hg] 123 mm[Hg] [facility]) Body weight 3731.2 [oz_av] 3731.2 [oz_av] ATHEN A ([facility]) Body height 65 [in_i] 65 [in_i] AKASH ([facility]) Body mass index (BMI) [Ratio] 38.8 kg/m2 38.8 k g/m2 AK[facility] ([facility]) Systolic blood pressure 123 mm[Hg] 123 mm[Hg] [facility]) Body weight 3731.2 [oz_av] 3731.2 [oz_av] ATHEN A ([facility]) Diastolic blood pressure 82 mm[Hg] 82 mm[Hg] AKASH ([facility]) Diastolic blood pressure 82 mm[Hg] 82 mm[Hg] AKASH ([facility]) Body height 65 [in_i] 65 [in_i] AKASH ([facility]) Body mass index (BMI) [Ratio] 38.8 kg/m2 38.8 k g/m2 AKASH ([facility]) Systolic blood pressure 123 mm[Hg] 123 mm[Hg] [facility]) Body weight 3731.2 [oz_av] 3731.2 [oz_av] ATHEN A ([facility]) Diastolic blood pressure 82 mm[Hg] 82 mm[Hg] AKASH ([facility]) Body height 65 [in_i] 65 [in_i] AKASH ([facility]) Body mass index (BMI) [Ratio] 38.8 kg/m2 38.8 k g/m2 [facility] ([facility]) Systolic blood pressure 123 mm[Hg] 123 mm[Hg] [facility]) Body weight 3731.2 [oz_av] 3731.2 [oz_av] ATHEN A ([facility]) Diastolic blood pressure 82 mm[Hg] 82 mm[Hg] AKASH ([facility]) Body height 65 [in_i] 65 [in_i] AK[facility] ([facility]) Body mass index (BMI) [Ratio] 38.8 kg/m2 38.8 k g/m2 [facility] ([facility]) Systolic blood pressure 123 mm[Hg] 123 mm[Hg] [facility]) Body weight 3731.2 [oz_av] 3731.2 [oz_av] ATHEN A ([facility]) Diastolic blood pressure 82 mm[Hg] 82 mm[Hg] AKASH ([facility]) Body height 65 [in_i] 65 [in_i] AK[facility] ([facility]) Body mass index (BMI) [Ratio] 38.8 kg/m2 38.8 k g/m2 AK[facility] ([facility]) Systolic blood pressure 123 mm[Hg] 123 mm[Hg] A [facility] ([facility]) Body weight 3731.2 [oz_av] 3731.2 [oz_av] ATHEN A ([facility]) Diastolic blood pressure 82 mm[Hg] 82 mm[Hg] AKASH ([facility]) Body height 65 [in_i] 65 [in_i] AKASH ([facility]) Body mass index (BMI) [Ratio] 38.8 kg/m2 38.8 k g/m2 AK[facility] ([facility]) Systolic blood pressure 123 mm[Hg] 123 mm[Hg] A THENA ([facility]) Body weight 3731.2 [oz_av] 3731.2 [oz_av] ATHEN A ([facility]) Systolic blood pressure 123 mm[Hg] 123 mm[Hg] [facility]) Body weight 3731.2 [oz_av] 3731.2 [oz_av] ATHEN A ([facility]) Diastolic blood pressure 82 mm[Hg] 82 mm[Hg] AKASH ([facility]) Body height 65 [in_i] 65 [in_i] [facility] ([facility]) Body mass index (BMI) [Ratio] 38.8 kg/m2 38.8 k g/m2 [facility] ([facility]) Diastolic blood pressure 82 mm[Hg] 82 mm[Hg] [facility] ([facility]) Body height 65 [in_i] 65 [in_i] [facility] ([facility]) Body mass index (BMI) [Ratio] 38.8 kg/m2 38.8 k g/m2 [facility] ([facility]) Systolic blood pressure 123 mm[Hg] 123 mm[Hg] A [facility] ([facility]) Body weight 3731.2 [oz_av] 3731.2 [oz_av] ATHEN A ([facility]) Diastolic blood pressure 82 mm[Hg] 82 mm[Hg] AKASH ([facility]) Body height 65 [in_i] 65 [in_i] AKASH ([facility]) Body mass index (BMI) [Ratio] 38.8 kg/m2 38.8 k g/m2 AK[facility] ([facility]) Systolic blood pressure 123 mm[Hg] 123 mm[Hg] A [facility] ([facility]) Body weight 3731.2 [oz_av] 3731.2 [oz_av] ATHEN A ([facility]) Patient Treatment Plan of Care Planned Activity Planned Date Details Description Data Source (s) zonisamide 25 MG Oral Capsule AKASH ([facility]) b2 100mg tab TAKE 4 TABLETS BY MOUTH ONCE DAILY AKASH ([facility]) Amoxicillin 875 MG / Clavulanate 125 MG Oral Tablet [Augmentin] AKASH ([facility]) zonisamide 25 MG Oral Capsule AKASH ([facility]) b2 100mg tab TAKE 4 TABLETS BY MOUTH ONCE DAILY AKASH ([facility]) Amoxicillin 875 MG / Clavulanate 125 MG Oral Tablet [Augmentin] AKASH ([facility]) Amoxicillin 875 MG / Clavulanate 125 MG Oral Tablet [Augmentin] AKASH ([facility]) Amoxicillin 875 MG / Clavulanate 125 MG Oral Tablet [Augmentin] AKASH ([facility]) Amoxicillin 875 MG / Clavulanate 125 MG Oral Tablet [Augmentin] AKASH ([facility]) Amoxicillin 875 MG / Clavulanate 125 MG Oral Tablet [Augmentin] AKASH ([facility]) Amoxicillin 875 MG / Clavulanate 125 MG Oral Tablet [Augmentin] AKASH ([facility]) Amoxicillin 875 MG / Clavulanate 125 MG Oral Tablet [Augmentin] AKASH ([facility]) Amoxicillin 875 MG / Clavulanate 125 MG Oral Tablet [Augmentin] [facility]ASH ([facility])
--- OUTSIDE RECORDS SUMMARY | 2021-09-08 21:48 | CCD ---
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 Name Role Phone Kesha Cedeno MD Unavailable [...] Cedeno MD Unavailable Unavailable Raine Moctezuma Unavailable [phone] Joann, Angela Unavailable Unavailable Joann, Angela Unavailable [...] MALA MD Unavailable Unavailable Seth, A Daisy CHIEF CATALYST OPERATOR Unavailable Unavailable Seth, A Daisy CHIEF CATALYST OPERATOR Unavailable Unavailable Seth, A Daisy CHIEF CATALYST OPERATOR Unavailable Unavailable Seth, A Daisy CHIEF CATALYST OPERATOR Unavailable Unavailable Seth, A Daisy CHIEF CATALYST OPERATOR Unavailable Unavailable Seth, A Daisy CHIEF CATALYST OPERATOR Unavailable Unavailable Seth, A Daisy CHIEF CATALYST OPERATOR Unavailable Unavailable Seth, A Daisy CHIEF CATALYST OPERATOR Unavailable Unavailable Seth, A Daisy CHIEF CATALYST OPERATOR Unavailable Unavailable Seth, A Daisy CHIEF CATALYST OPERATOR Unavailable Unavailable Seth, A Daisy CHIEF CATALYST OPERATOR Unavailable Unavailable Seth, A Daisy CHIEF CATALYST OPERATOR Unavailable Unavailable Seth, A Daisy CHIEF CATALYST OPERATOR Unavailable Unavailable Seth, A Daisy CHIEF CATALYST OPERATOR Unavailable Unavailable Seth, A Daisy CHIEF CATALYST OPERATOR Unavailable Unavailable Seth, A Daisy CHIEF CATALYST OPERATOR Unavailable Unavailable Seth, A Daisy CHIEF CATALYST OPERATOR Unavailable Unavailable Seth, A Daisy CHIEF CATALYST OPERATOR Unavailable Unavailable Seth, A Daisy CHIEF CATALYST OPERATOR Unavailable Unavailable Seth, A Daisy CHIEF CATALYST OPERATOR Unavailable Unavailable Seth, A Daisy CHIEF CATALYST OPERATOR Unavailable Unavailable Seth, A Daisy CHIEF CATALYST OPERATOR Unavailable Unavailable Seth, A Daisy CHIEF CATALYST OPERATOR Unavailable Unavailable Seth, A Daisy CHIEF CATALYST OPERATOR Unavailable Unavailable Seth, A Daisy CHIEF CATALYST OPERATOR Unavailable Unavailable Seth, A Daisy CHIEF CATALYST OPERATOR Unavailable Unavailable Seth, A Daisy CHIEF CATALYST OPERATOR Unavailable Unavailable Seth, A Daisy CHIEF CATALYST OPERATOR Unavailable Unavailable Seth, A Daisy CHIEF CATALYST OPERATOR Unavailable Unavailable Seth, A Daisy CHIEF CATALYST OPERATOR Unavailable Unavailable Seth, A Daisy CHIEF CATALYST OPERATOR Unavailable Unavailable Re-disclosure Warning The records that [...] by Article 27-F of the [facility] Public Health law. If you continue you may have access to information: Regarding HIV / AIDS; Provided by facilities licensed or operated by the [facility] Office of Mental Health; or Provided by the [facility] Office for People With Developmental Disabilities. If such information is present, then the following [facility] mandated warning applies: This information has [...] law may result in a fine or nursing home sentence or both. A general authorization for the release of medical or other information is NOT sufficient authorization for further disc losure. Allergies and Adverse Reactions Type Description Substance Reaction Status Data Source(s ) Allergy to substance Allergy to substance Allergy to substance [place] ([facility]) Allergy to substance Allergy to substance Allergy to substance [place] ([facility]) Encounters Encounter Providers Location Date Indications Data Source(s ) Raine Moctezuma [facility]: [address] [place] [phone], Ph. Attender: Raine Moctezuma [facility] Medical 09/08/2021 12:00:00 AM EST [place] ([facility]) Jose Cedeno MD: [address] [place] [phone], Ph. Attender: Jose Cedeno MD [facility] Medical 08/20/2021 12:00:00 AM EST [place] ([facility]) Jose Cedeno MD: [address] [place] [phone], Ph. Attender: Jose Cedeno MD [facility] Medical 08/20/2021 12:00:00 AM EST [place] ([facility]) Karen David MD: [address] [place] [address], Ph. Attender: Karen David [facility] Medical 08/12/2021 12:00:00 AM EST [place] ([facility]) Karen David MD: [address] [place] [address], Ph. Attender: Karen David [facility] Medical 08/12/2021 12:00:00 AM EST [place] ([facility]) Jose Cedeno MD: [address] [place] [address], Ph. Attender: Jose Cedeno MD [facility] Medical 07/31/2021 12:00:00 AM EDT [place] ([facility]) Jose Cedeno MD: [address] [place] [address], Ph. Attender: Jose Cedeno MD [facility] Medical 07/31/2021 12:00:00 AM EDT [place] ([facility]) Jose Cedeno MD: [address] [place] [address], Ph. Attender: Jose Cedeno MD [facility] Medical 07/31/2021 12:00:00 AM EDT [place] ([facility]) Raine Moctezuma LMSW: [address] [place] [address], Ph. Attender: Raine Moctezuma [facility] Medical 07/28/2021 12:00:00 AM EDT [place] ([facility]) Raine Moctezuma LMSW: [address], [place] [address], Ph. Attender: Raine Moctezuma [facility] Medical 07/28/2021 12:00:00 AM EDT [place] ([facility]) Raine Moctezuma, [facility]: [address], [place] [address], Ph. Attender: Raine Moctezuma [facility] Medical 07/28/2021 12:00:00 AM EDT [place] ([facility]) Raine Moctezuma, [facility]: [address], [place] [address], Ph. Attender: Raine Moctezuma [facility] Medical 07/28/2021 12:00:00 AM EDT [facility]) Raine Moctezuma, [facility]: [address], [place] [address], Ph. Attender: Raine Moctezuma [facility] Medical 07/14/2021 12:00:00 AM EDT [facility]) Raine Moctezuma, [facility]: [address], [place] [address], Ph. Attender: Raine Moctezuma [facility] Medical 07/14/2021 12:00:00 AM EDT [place] ([facility]) Raine Moctezuma, [facility]: [address], [place] [address], Ph. Attender: Raine Moctezuma [facility] Medical 07/14/2021 12:00:00 AM EDT [place] ([facility]) Raine Moctezuma, [facility]: [address], [place] [address], Ph. Attender: Raine Moctezuma [facility] Medical 07/14/2021 12:00:00 AM EDT [place] ([facility]) Raine Moctezuma, [facility]: [address] [place] [address], Ph. Attender: Raine Moctezuma [facility] Medical 07/14/2021 12:00:00 AM EDT [place] ([facility]) Office Visit Attender: MALA TIPTON MD Main office - [facility] 07/07/2021 10:15:00 AM EDT [place] ([facility], ) Raine Moctezuma, [facility]: [address] [place] [address], Ph. Attender: Raine Moctezuma [facility] Medical 06/30/2021 12:00:00 AM EDT [place] ([facility]) [facility] [address] [place] [address], Ph. Attender: Raine Moctezuma [facility] Medical 06/30/2021 12:00:00 AM EDT [place] ([facility]) Raine Moctezuma, [facility]: [address] [place] [address], Ph. Attender: Raine Terrelltracy [facility] Medical 06/30/2021 12:00:00 AM EDT [place] ([facility]) Raine Moctezuma, [facility]: [address] [place] [address], Ph. Attender: Raine Terrelltracy [facility] Medical 06/30/2021 12:00:00 AM EDT [place] ([facility]) [facility] [address] [place] [address], Ph. Attender: Raine Terrelltracy [facility] Medical 06/30/2021 12:00:00 AM EDT [facility]) Raine Moctezuma, [facility]: [address], [place] [address], Ph. Attender: Raine Moctezuma [facility] Medical 06/30/2021 12:00:00 AM EDT [place] ([facility]) Raine Moctezuma, [facility]: [address], [place] [address], Ph. Attender: Raine Moctezuma [facility] Medical 06/16/2021 12:00:00 AM EDT [facility]) Raine Moctezuma, [facility]: [address], [place] [address], Ph. Attender: Raine Moctezuma [facility] Medical 06/16/2021 12:00:00 AM EDT [facility]) Raine Moctezuma, [facility]: [address], [place] [address], Ph. Attender: Raine Moctezuma [facility] Medical 06/16/2021 12:00:00 AM EDT [place] ([facility]) [facility]: [address], [place] [address], Ph. Attender: Raine Moctezuma [facility] Medical 06/16/2021 12:00:00 AM EDT [place] ([facility]) Raine Moctezuma, [facility]: [address], [place] [address], Ph. Attender: Raine Moctezuma [facility] Medical 06/16/2021 12:00:00 AM EDT [facility]) Raine Terrelltracy [facility]: [address], [place] [address], Ph. Attender: Raine Moctezuma [facility] Medical 06/16/2021 12:00:00 AM EDT [facility]) Raine Moctezuma, [facility]: [address] [place] [address], Ph. Attender: Raine Moctezuma [facility] Medical 06/16/2021 12:00:00 AM EDT [place] ([facility]) [facility] [address] [place] [address], Ph. Attender: Raine Moctezuma [facility] Medical 06/03/2021 12:00:00 AM EDT [facility]) [facility]: [address] [place] [address], Ph. Attender: Raine Moctezuma [facility] Medical 06/03/2021 12:00:00 AM EDT [facility]) [facility]: [address] [place] [address], Ph. Attender: Raine Moctezuma [facility] Medical 06/03/2021 12:00:00 AM EDT [place] ([facility]) [facility]: [address] [place] [address], Ph. Attender: Raine Moctezuma [facility] Medical 06/03/2021 12:00:00 [facility] [address] [place] [address], Ph. Attender: Ranie Moctezuma [facility] Medical 06/03/2021 12:00:00 AM EDT [place] ([facility]) Raine Moctezuma, [facility]: [address], [place] [address], Ph. Attender: Raine Moctezuma [facility] Medical 06/03/2021 12:00:00 AM EDT [place] ([facility]) Raine Moctezuma, [facility]: [address], [place] [address], Ph. Attender: Raine Moctezuma [facility] Medical 06/03/2021 12:00:00 AM EDT [place] ([facility]) Raine Moctezuma, [facility]: [address], [place] [address], Ph. Attender: Raine Moctezuma [facility] Medical 06/03/2021 12:00:00 AM EDT [place] ([facility]) Outpatient Attender: MALA TIPTON MD Main office - [facility] 04/30/2021 03:00:00 PM EDT [place] ([facility], ) Karen David MD: [address], [facility] [place] [address], Ph. Attender: Karen David [facility] Medical 04/17/2021 12:00:00 AM EDT [place] ([facility]) Karen David MD: [address], [place] [address], Ph. Attender: Karen David [facility] Medical 04/17/2021 12:00:00 AM EDT [place] ([facility]) Karen David MD: [address], [place] [address], Ph. Attender: Karen David [facility] Medical 04/17/2021 12:00:00 AM EDT [place] ([facility]) Karen David MD: [address], [place] [address], Ph. Attender: Karen David [facility] Medical 04/17/2021 12:00:00 AM EDT [place] ([facility]) Karen David MD: [address], [place] [address], Ph. Attender: Karen David [facility] Medical 04/17/2021 12:00:00 AM EDT [place] ([facility]) Karen David MD: [address], [place] [address], Ph. Attender: Karen David [facility] Medical 04/17/2021 12:00:00 AM EDT [place] ([facility]) Karen David MD: [address], [place] [address], Ph. Attender: Karen David [facility] Medical 04/17/2021 12:00:00 AM EDT [place] ([facility]) Karen David MD: [address], [place] [address], Ph. Attender: Karen David [facility] Medical 04/17/2021 12:00:00 AM EDT [place] ([facility]) Karen David MD: [address], [place] [address], Ph. Attender: Karen David [facility] Medical 04/17/2021 12:00:00 AM EDT [place] ([facility]) Karen David MD: [address], [place] [address], Ph. Attender: Karen David [facility] Medical 03/17/2021 12:00:00 AM EDT [place] ([facility]) Karen David MD: [address], [place] [address], Ph. Attender: Karen David [facility] Medical 03/17/2021 12:00:00 AM EDT [place] ([facility]) Karen David MD: [address], [place] [address], Ph. Attender: Karen David [facility] Medical 03/17/2021 12:00:00 AM EDT [place] ([facility]) Karen David MD: [address], [place] [address], Ph. Attender: Karen David [facility] Medical 03/17/2021 12:00:00 AM EDT [place] ([facility]) Karen David MD: [address], [place] [address], Ph. Attender: Karen David [facility] Medical 03/17/2021 12:00:00 AM EDT [place] ([facility]) Karen David MD: [address], [place] [address], Ph. Attender: Karen David [facility] Medical 03/17/2021 12:00:00 AM EDT [place] ([facility]) Karen David MD: [address], [place] [address], Ph. Attender: Karen David [facility] Medical 03/17/2021 12:00:00 AM EDT [place] ([facility]) Karen David MD: [address], [place] [address], Ph. Attender: Karen David [facility] Medical 03/17/2021 12:00:00 AM EDT [place] ([facility]) Karen David MD: [address], [place] [address], Ph. Attender: Karen David [facility] Medical 03/17/2021 12:00:00 AM EDT [place] ([facility]) Karen David MD: [address], [place] [address], Ph. Attender: Karen David [facility] Medical 03/17/2021 12:00:00 AM EDT [place] ([facility]) Daisy Ann [facility]: [address], [place] [address], Ph. Attender: Daisy Ann [facility] Medical 03/06/2021 12:00:00 AM EDT [place] ([facility]) GIANA Dave: [address], [place] [address], Ph. Attender: Daisy Ann [facility] Medical 03/06/2021 12:00:00 AM EDT [place] ([facility]) GIANA Dave: [address], [place] [address], Ph. Attender: Daisy Ann [facility] Medical 03/06/2021 12:00:00 AM EDT [place] ([facility]) Daisy Ann [facility]: [address], [place] [address], Ph. Attender: Daisy Ann [facility] Medical 03/06/2021 12:00:00 AM EDT [place] ([facility]) Daisy Ann [facility]: [address], [place] [address], Ph. Attender: Daisy Ann [facility] Medical 03/06/2021 12:00:00 AM EDT [facility]) Daisy Ann [facility]: [address], [place] [address], Ph. Attender: Daisy Ann [facility] Medical 03/06/2021 12:00:00 AM EDT [place] ([facility]) Daisy Ann [facility]: [address], [place] [address], Ph. Attender: Daisy Ann [facility] Medical 03/06/2021 12:00:00 AM EDT [place] ([facility]) Daisy Ann [facility]: [address], [place] [address], Ph. Attender: Daisy Ann [facility] Medical 03/06/2021 12:00:00 AM EDT [facility]) Daisy Ann [facility]: [address], [place] [address], Ph. Attender: Daisy Ann [facility] Medical 03/06/2021 12:00:00 AM EDT [place] ([facility]) Daisy Ann [facility]-: [address], [place] [address], Ph. Attender: Daisy Ann [facility] Medical 03/06/2021 12:00:00 AM EDT [place] ([facility]) Karen David MD: [address], [place] [address], Ph. Attender: Karen David [facility] Medical 02/25/2021 12:00:00 AM EDT [place] ([facility]) Karen David MD: [address], [place] [address], Ph. Attender: Karen David [facility] Medical 02/25/2021 12:00:00 AM EDT [place] ([facility]) Karen David MD: [address], [place] [address], Ph. Attender: Karen David [facility] Medical 02/25/2021 12:00:00 AM EDT [place] ([facility]) Karen David MD: [address], [place] [address], Ph. Attender: Karen David [facility] Medical 02/25/2021 12:00:00 AM EDT [place] ([facility]) Karen David MD: [address], [place] [address], Ph. Attender: Karen David [facility] Medical 02/25/2021 12:00:00 AM EDT [place] ([facility]) Karen David MD: [address], [place] [address], Ph. Attender: Karen David [facility] Medical 02/25/2021 12:00:00 AM EDT [place] ([facility]) Karen David MD: [address], [place] [address], Ph. Attender: Karen David [facility] Medical 02/25/2021 12:00:00 AM EDT [place] ([facility]) Karen David MD: [address], [place] [address], Ph. Attender: Karen David [facility] Medical 02/25/2021 12:00:00 AM EDT [place] ([facility]) Karen David MD: [address], [place] [address], Ph. Attender: Karen David [facility] Medical 02/25/2021 12:00:00 AM EDT [place] ([facility]) Karen David MD: [address], [place] [address], Ph. Attender: Karen David [facility] Medical 02/25/2021 12:00:00 AM EDT [place] ([facility]) Karen David MD: [address], [place] [address], Ph. Attender: Karen David [facility] Medical 02/25/2021 12:00:00 AM EDT [place] ([facility]) Jose Cedeno MD: [address] [place] [address], Ph. Attender: Jose Cedeno MD [facility] Medical 01/08/2021 12:00:00 AM EDT [place] ([facility]) Jose Cedeno MD: [address] [place] [address], Ph. Attender: Jose Cedeno MD [facility] Medical 01/08/2021 12:00:00 AM EDT [place] ([facility]) Jose Cedeno MD: [address] [place] [address], Ph. Attender: Jose Cedeno MD [facility] Medical 01/08/2021 12:00:00 AM EDT [place] ([facility]) Jose Cedeno MD: [address] [place] [address], Ph. Attender: Jose Cedeno MD [facility] Medical 01/08/2021 12:00:00 AM EDT [place] ([facility]) Jose Cedeno MD: [address] [place] [address], Ph. Attender: Jose Cedeno MD [facility] Medical 01/08/2021 12:00:00 AM EDT [place] ([facility]) Jose Cedeno MD: [address] [place] [address], Ph. Attender: Jose Cedeno MD [facility] Medical 01/08/2021 12:00:00 AM EDT [place] ([facility]) Jose Cedeno MD: [address] [place] [address], Ph. Attender: Jose Cedeno MD [facility] Medical 01/08/2021 12:00:00 AM EDT [place] ([facility]) Jose Cedeno MD: [address] [place] [address], Ph. Attender: Jose Cedeno MD [facility] Medical 01/08/2021 12:00:00 AM EDT [place] ([facility]) Jose Cedeno MD: [address] [place] [address], Ph. Attender: Jose Cedeno MD [facility] Medical 01/08/2021 12:00:00 AM EDT [place] ([facility]) Jose Cedeno MD: [address] [place] [address], Ph. Attender: Jose Cedeno MD [facility] Medical 01/08/2021 12:00:00 AM EDT [place] ([facility]) Jose Cedeno MD: [address] [place] [address], Ph. Attender: Jose Cedeno MD [facility] Medical 01/08/2021 12:00:00 AM EDT [place] ([facility]) Jose Cedeno MD: [address] [place] [address], Ph. Attender: Jose Cedeno MD [facility] Medical 01/08/2021 12:00:00 AM EDT [place] ([facility]) Heather Chavez RPA-C: [address] [place] [address], Ph. Attender: Heather Phelps [facility] Medical 12/08/2020 12:00:00 AM EST [place] ([facility]) MANA StewardC: [address], [place] [address], Ph. [facility]: [facility] Medical 12/08/2020 12:00:00 AM EST [place] ([facility]) Heather Chavez RPA-C: [address], [place] [address], Ph. [facility]: [facility] 12/08/2020 12:00:00 AM EST AKASH ([facility]) Heather Chavez RPA-C: [address], [place] [address], Ph. [facility]: [facility] 12/08/2020 12:00:00 AM EST AKASH ([facility]) Heather Chavez RPA-C: [address], [place] [address], Ph. Attender: [facility] Medical 12/08/2020 12:00:00 AM EST AKASH ([facility]) Heather Chavez RPA-C: [address], [place] [address], Ph. Attender: Heather Phelps [facility] Medical 12/08/2020 12:00:00 AM EST AKASH ([facility]) Heather Chavez RPA-C: [address], [place] [address], Ph. Attender: [facility] Medical 12/08/2020 12:00:00 AM EST AKASH ([facility]) Heather Chavez RPA-C: [address], [place] [address], Ph. Attender: [facility] Medical 12/08/2020 12:00:00 AM EST AKASH ([facility]) Heather Chavez RPA-C: [address], [place] [address], Ph. [facility]: [facility] 12/08/2020 12:00:00 AM EST AKASH ([facility]) Heather Chavez RPA-C: [address], [place] [address], Ph. Attender: [facility] Medical 12/08/2020 12:00:00 AM EST AKASH ([facility]) Heather Chavez RPA-C: [address], [place] [address], Ph. Att[facility]: [facility] Medical 12/08/2020 12:00:00 AM EST AKASH ([facility]) Heather Chavez RPA-C: [address], [place] [address], Ph. Attender: [facility] Medical 12/08/2020 12:00:00 AM EST AKASH ([facility]) Heather Chavez RPA-C: [address], [place] [address], Ph. [facility]: [facility] 12/08/2020 12:00:00 AM EST AKASH ([facility]) Immunizations Vaccine Date Status Description Data Source(s) COVID-19, mRNA, LNP-S, PF, 100 mcg/0.5 mL dose (Modern a) 08/20/2021 10:38:56 AM EST completed .25 mL [facility]ASH ([facility]) COVID-19, mRNA, LNP-S, PF, 100 mcg/0.5 mL dose (Modern a) 08/20/2021 10:38:56 AM EST completed .25 mL AKASH ([facility]) COVID-19 VACCINE Moderna 08/20/2021 12:00:00 AM EST completed [facility] Vaccine Series Complete: YESThis Data wa s Submitted to [facility] Via [employer]. Td (adult) preservative free 02/25/2021 05:59:00 PM EDT complete d .5 mL [facility]ASH ([facility]) Td (adult) preservative free 02/25/2021 05:59:00 PM EDT complete d .5 mL [facility]ASH ([facility]) Td (adult) preservative free 02/25/2021 05:59:00 PM EDT complete d .5 mL [facility] ([facility]) Td (adult) preservative free 02/25/2021 05:59:00 PM EDT complete d .5 mL [facility] ([facility]) Td (adult) preservative free 02/25/2021 05:59:00 PM EDT complete d .5 mL [facility] ([facility]) Td (adult) preservative free 02/25/2021 05:59:00 PM EDT complete d .5 mL [facility]ASH ([facility]) Td (adult) preservative free 02/25/2021 05:59:00 PM EDT complete d .5 mL [facility] ([facility]) Td (adult) preservative free 02/25/2021 05:59:00 PM EDT complete d .5 mL [facility] ([facility]) Td (adult) preservative free 02/25/2021 05:59:00 PM EDT complete d .5 mL [facility]ASH ([facility]) Td (adult) preservative free 02/25/2021 05:59:00 PM EDT complete d .5 mL [facility] ([facility]) Td (adult) preservative free 02/25/2021 05:59:00 PM EDT complete d .5 mL [facility] ([facility]) COVID-19, mRNA, LNP-S, PF, 100 mcg/0.5 mL dose (Modern a) 01/08/2021 02:23:10 PM EDT completed .5 mL [facility]ASH ([facility]) COVID-19, mRNA, LNP-S, PF, 100 mcg/0.5 mL dose (Modern a) 01/08/2021 02:23:10 PM EDT completed .5 mL [facility]ASH ([facility]) COVID-19, mRNA, LNP-S, PF, 100 mcg/0.5 mL dose 01/08/2021 02 :23:10 PM EDT completed .5 mL AKASH ([facility]) COVID-19, mRNA, LNP-S, PF, 100 mcg/0.5 mL dose 01/08/2021 02 :23:10 PM EDT completed .5 mL [facility]ASH ([facility]) COVID-19, mRNA, LNP-S, PF, 100 mcg/0.5 mL dose 01/08/2021 02 :23:10 PM EDT completed .5 mL [facility]ASH ([facility]) COVID-19, mRNA, LNP-S, PF, 100 mcg/0.5 mL dose 01/08/2021 02 :23:10 PM EDT completed .5 mL [facility]ASH ([facility]) COVID-19, mRNA, LNP-S, PF, 100 mcg/0.5 mL dose 01/08/2021 02 :23:10 PM EDT completed .5 mL [facility] ([facility]) COVID-19, mRNA, LNP-S, PF, 100 mcg/0.5 mL dose 01/08/2021 02 :23:10 PM EDT completed .5 mL [place] ([facility]) COVID-19, mRNA, LNP-S, PF, 100 mcg/0.5 mL dose 01/08/2021 02 :23:10 PM EDT completed .5 mL [place] ([facility]) COVID-19, mRNA, LNP-S, PF, 100 mcg/0.5 mL dose 01/08/2021 02 :23:10 PM EDT completed .5 mL [place] ([facility]) COVID-19, mRNA, LNP-S, PF, 100 mcg/0.5 mL dose 01/08/2021 02 :23:10 PM EDT completed .5 mL [place] ([facility]) COVID-19, mRNA, LNP-S, PF, 100 mcg/0.5 mL dose 01/08/2021 02 :23:10 PM EDT completed .5 mL [place] ([facility]) COVID-19 VACCINE Moderna 01/08/2021 12:00:00 AM EDT completed [facility] Vaccine Series Complete: YESThis Data wa s Submitted to [facility] Via [employer]. COVID-19, mRNA, LNP-S, PF, 100 mcg/0.5 mL dose (Modern a) 12/08/2020 04:16:50 PM EST completed .5 mL [facility]ASH ([facility]) COVID-19, mRNA, LNP-S, PF, 100 mcg/0.5 mL dose (Modern a) 12/08/2020 04:16:50 PM EST completed .5 mL [place] ([facility]) COVID-19, mRNA, LNP-S, PF, 100 mcg/0.5 mL dose 12/08/2020 04 :16:50 PM EST completed .5 mL [facility]ASH ([facility]) COVID-19, mRNA, LNP-S, PF, 100 mcg/0.5 mL dose 12/08/2020 04 :16:50 PM EST completed .5 mL [facility]ASH ([facility]) COVID-19, mRNA, LNP-S, PF, 100 mcg/0.5 mL dose 12/08/2020 04 :16:50 PM EST completed .5 mL [facility] ([facility]) COVID-19, mRNA, LNP-S, PF, 100 mcg/0.5 mL dose 12/08/2020 04 :16:50 PM EST completed .5 mL [facility] ([facility]) COVID-19, mRNA, LNP-S, PF, 100 mcg/0.5 mL dose 12/08/2020 04 :16:50 PM EST completed .5 mL [facility]ASH ([facility]) COVID-19, mRNA, LNP-S, PF, 100 mcg/0.5 mL dose 12/08/2020 04 :16:50 PM [facility], LNP-S, PF, 100 mcg/0.5 mL dose 12/08/2020 04 :16:50 PM EST [facility], mRNA, LNP-S, PF, 100 mcg/0.5 mL dose 12/08/2020 04 :16:50 PM EST completed .5 mL [facility]ASH ([facility]) COVID-19, mRNA, LNP-S, PF, 100 mcg/0.5 mL dose 12/08/2020 04 :16:50 PM EST completed .5 mL [place] ([facility]) COVID-19, mRNA, LNP-S, PF, 100 mcg/0.5 mL dose 12/08/2020 04 :16:50 PM EST completed .5 mL [place] ([facility]) COVID-19, mRNA, LNP-S, PF, 100 mcg/0.5 mL dose 12/08/2020 04 :16:50 PM EST completed .5 mL [place] ([facility]) COVID-19 VACCINE Moderna 12/08/2020 12:00:00 AM EST completed [facility] Vaccine Series Complete: NOThis Data was Submitted to [facility] Via [employer]. Medications Medication Brand Name Start Date Product Form Dose Route Admi nistrative Instructions Pharmacy Instructions Status Indications Reaction Description Data Source(s) zonisamide 25 MG Oral Capsule Zonisamide 06/11/2021 12:00:00 AM EDT ORAL completed [facility] ([facility], ) zonisamide 50 MG Oral Capsule Zonisamide 06/11/2021 12:00:00 AM EDT ORAL active [facility] ([facility], ) zonisamide 25 MG Oral Capsule zonisamide 25 mg capsule zonis amide 25 mg capsule completed zonisamide 25 MG Oral Capsule [place] ([facility]) b2 100mg tab TAKE 4 TABLETS BY MOUTH ONCE DAILY completed b2 100mg tab [place] ( [facility]) Amoxicillin 875 MG / Clavulanate 125 MG Oral Tablet [Augmentin] Augmentin 875 mg-125 mg tablet Take 1 tablet every 12 hours by oral route for 14 days. Augmentin 875 mg-125 mg tablet Take 1 tablet every 12 hours by oral route for 14 days. 1 completed amoxici llin 875 MG / clavulanate 125 MG Oral Tablet [Augmentin] [place] ([facility]) Amoxicillin 875 MG / Clavulanate 125 MG Oral Tablet [Augmentin] Augmentin 875 mg-125 mg tablet Take 1 tablet every 12 hours by oral route for 14 days. Augmentin 875 mg-125 mg tablet Take 1 tablet every 12 hours by oral route for 14 days. 1 completed amoxici llin 875 MG / clavulanate 125 MG Oral Tablet [Augmentin] [place] ([facility]) Amoxicillin 875 MG / Clavulanate 125 MG Oral Tablet [Augmentin] Augmentin 875 mg-125 mg tablet Take 1 tablet every 12 hours by oral route for 14 days. Augmentin 875 mg-125 mg tablet Take 1 tablet every 12 hours by oral route for 14 days. 1 completed amoxici llin 875 MG / clavulanate 125 MG Oral Tablet [Augmentin] AKASH ([facility]) Amoxicillin 875 MG / Clavulanate 125 MG Oral Tablet [Augmentin] Augmentin 875 mg-125 mg tablet Take 1 tablet every 12 hours by oral route for 14 days. Augmentin 875 mg-125 mg tablet Take 1 tablet every 12 hours by oral route for 14 days. 1 completed amoxici llin 875 MG / clavulanate 125 MG Oral Tablet [Augmentin] [facility]ASH ([facility]) Amoxicillin 875 MG / Clavulanate 125 MG Oral Tablet [Augmentin] Augmentin 875 mg-125 mg tablet Take 1 tablet every 12 hours by oral route for 14 days. Augmentin 875 mg-125 mg tablet Take 1 tablet every 12 hours by oral route for 14 days. 1 completed amoxici llin 875 MG / clavulanate 125 MG Oral Tablet [Augmentin] [facility]ASH ([facility]) zonisamide 25 MG Oral Capsule zonisamide 25 mg capsule zonis amide 25 mg capsule completed zonisamide 25 MG Oral Capsule [facility]) b2 100mg tab TAKE 4 TABLETS BY MOUTH ONCE DAILY completed b2 100mg tab [place] ( [facility]) Amoxicillin 875 MG / Clavulanate 125 MG Oral Tablet [Augmentin] Augmentin 875 mg-125 mg tablet Take 1 tablet every 12 hours by oral route for 14 days. Augmentin 875 mg-125 mg tablet Take 1 tablet every 12 hours by oral route for 14 days. 1 completed amoxici llin 875 MG / clavulanate 125 MG Oral Tablet [Augmentin] AKASH ([facility]) Amoxicillin 875 MG / Clavulanate 125 MG Oral Tablet [Augmentin] Augmentin 875 mg-125 mg tablet Take 1 tablet every 12 hours by oral route for 14 days. Augmentin 875 mg-125 mg tablet Take 1 tablet every 12 hours by oral route for 14 days. 1 completed amoxici llin 875 MG / clavulanate 125 MG Oral Tablet [Augmentin] AKASH ([facility]) Amoxicillin 875 MG / Clavulanate 125 MG Oral Tablet [Augmentin] Augmentin 875 mg-125 mg tablet Take 1 tablet every 12 hours by oral route for 14 days. Augmentin 875 mg-125 mg tablet Take 1 tablet every 12 hours by oral route for 14 days. 1 completed amoxici llin 875 MG / clavulanate 125 MG Oral Tablet [Augmentin] AKASH ([facility]) Amoxicillin 875 MG / Clavulanate 125 MG Oral Tablet [Augmentin] Augmentin 875 mg-125 mg tablet Take 1 tablet every 12 hours by oral route for 14 days. Augmentin 875 mg-125 mg tablet Take 1 tablet every 12 hours by oral route for 14 days. 1 completed amoxici llin 875 MG / clavulanate 125 MG Oral Tablet [Augmentin] [place] ([facility]) Insurance Providers Payer name Policy type / Coverage type Policy ID Covered alliance party ID Covered alliance party's relationship to marin Policy [place] Plan Information BCBS [facility] 020/520 [id number] SP [id number] [employer] [place] 020/520 [id number] SP [id number] [facility] MED[facility] [id number] SP [id number] M SELF PAY HMO BLUE [id number] SP [id number] [place] PPO 302/307 [id number] SP [id number] [facility] SHIELD -O/P [id number] 1 [id number] [place] PPO 302/307 [id number] SP [id number] MEDICAID [id number] SP [id number] [facility] [id number] 18 [id number] [employer] CLAIMS [id number] [employer] [id number] Problems, Conditions, and Diagnoses Code Display Name Description Problem Type Effective Dates Data Source(s) 323693717 Headache disorder Headache Disorder Problem 08/11 12:00:00 [facility] [id number] Headache disorder Headache Disorder Problem 08/11 12:00:00 AM EST AKASH ([facility]) [id number] Depressive disorder Depressive Disorder Problem 0 06/04/2021 12:00:00 AM EDT AKASH ([facility]) [id number] Depressive disorder Depressive Disorder Problem 0 06/04/2021 12:00:00 AM EDT AKASH ([facility]) [id number] Depressive disorder Depressive Disorder Problem 0 06/04/2021 12:00:00 AM EDT [facility]ASH ([facility]) [id number] Depressive disorder Depressive Disorder Problem 0 06/04/2021 12:00:00 AM EDT AKASH ([facility]) [id number] Depressive disorder Depressive Disorder Problem 0 06/04/2021 12:00:00 AM EDT AKASH ([facility]) [id number] Depressive disorder Depressive Disorder Problem 0 06/04/2021 12:00:00 AM EDT [facility]ASH ([facility]) [id number] Depressive disorder Depressive Disorder Problem 0 06/04/2021 12:00:00 AM EDT AKASH ([facility]) 43308318 Depressive disorder Depressive Disorder Problem 0 06/04/2021 12:00:00 AM EDT [facility] ([facility]) 3587651 Sinus headache Sinus Headache Problem 03/17/2021 12:00: 00 AM EDT [place] ([facility]) 26600821 Chronic sinusitis Chronic Sinusitis Problem 03/17/2021 12:00:00 AM EDT AKASH ([facility]) 33171717 Hyperlipidemia Hyperlipidemia Problem 03/17/2021 12:00: 00 AM EDT [facility]ASH ([facility]) 85886446 Vitamin D deficiency Vitamin D Deficiency Problem 03/17/2021 12:00:00 AM EDT [facility] ([facility]) 4064996 Sinus headache Sinus Headache Problem 03/17/2021 12:00: 00 AM EDT [facility] ([facility]) 42801707 Chronic sinusitis Chronic Sinusitis Problem 03/17/2021 12:00:00 AM EDT [facility] ([facility]) 59794663 Hyperlipidemia Hyperlipidemia Problem 03/17/2021 12:00: 00 AM EDT [facility] ([facility]) 94830026 Vitamin D deficiency Vitamin D Deficiency Problem 03/17/2021 12:00:00 AM EDT [place] ([facility]) 6183214 Sinus headache Sinus Headache Problem 03/17/2021 12:00: 00 AM EDT [place] ([facility]) 95765484 Chronic sinusitis Chronic Sinusitis Problem 03/17/2021 12:00:00 AM EDT [place] ([facility]) 57299653 Hyperlipidemia Hyperlipidemia Problem 03/17/2021 12:00: 00 AM EDT [place] ([facility]) 41431989 Vitamin D deficiency Vitamin D Deficiency Problem 03/17/2021 12:00:00 AM EDT [place] ([facility]) 2916246 Sinus headache Sinus Headache Problem 03/17/2021 12:00: 00 AM EDT [place] ([facility]) 24985635 Chronic sinusitis Chronic Sinusitis Problem 03/17/2021 12:00:00 AM EDT [place] ([facility]) 80878981 Hyperlipidemia Hyperlipidemia Problem 03/17/2021 12:00: 00 AM EDT [place] ([facility]) 15909366 Vitamin D deficiency Vitamin D Deficiency Problem 03/17/2021 12:00:00 AM EDT [place] ([facility]) 5688287 Sinus headache Sinus Headache Problem 03/17/2021 12:00: 00 AM EDT [place] ([facility]) 80111498 Chronic sinusitis Chronic Sinusitis Problem 03/17/2021 12:00:00 AM EDT [place] ([facility]) 49662306 Hyperlipidemia Hyperlipidemia Problem 03/17/2021 12:00: 00 AM EDT [place] ([facility]) 29187132 Vitamin D deficiency Vitamin D Deficiency Problem 03/17/2021 12:00:00 AM EDT [place] ([facility]) 4842500 Sinus headache Sinus Headache Problem 03/17/2021 12:00: 00 AM EDT [place] ([facility]) 30951287 Chronic sinusitis Chronic Sinusitis Problem 03/17/2021 12:00:00 AM EDT [place] ([facility]) 76017180 Hyperlipidemia Hyperlipidemia Problem 03/17/2021 12:00: 00 AM EDT [place] ([facility]) 06181775 Vitamin D deficiency Vitamin D Deficiency Problem 03/17/2021 12:00:00 AM EDT [place] ([facility]) 9063204 Sinus headache Sinus Headache Problem 03/17/2021 12:00: 00 AM EDT [place] ([facility]) 65264251 Chronic sinusitis Chronic Sinusitis Problem 03/17/2021 12:00:00 AM EDT [place] ([facility]) 10430358 Hyperlipidemia Hyperlipidemia Problem 03/17/2021 12:00: 00 AM EDT [place] ([facility]) 45858137 Vitamin D deficiency Vitamin D Deficiency Problem 03/17/2021 12:00:00 AM EDT [place] ([facility]) 3438646 Sinus headache Sinus Headache Problem 03/17/2021 12:00: 00 AM EDT [place] ([facility]) 18460268 Chronic sinusitis Chronic Sinusitis Problem 03/17/2021 12:00:00 AM EDT [place] ([facility]) 88100222 Hyperlipidemia Hyperlipidemia Problem 03/17/2021 12:00: 00 AM EDT [place] ([facility]) 98663611 Vitamin D deficiency Vitamin D Deficiency Problem 03/17/2021 12:00:00 AM EDT [place] ([facility]) 4039102 Sinus headache Sinus Headache Problem 03/17/2021 12:00: 00 AM EDT [place] ([facility]) 71516581 Chronic sinusitis Chronic Sinusitis Problem 03/17/2021 12:00:00 AM EDT [place] ([facility]) 13472975 Hyperlipidemia Hyperlipidemia Problem 03/17/2021 12:00: 00 AM EDT [place] ([facility]) 60757653 Vitamin D deficiency Vitamin D Deficiency Problem 03/17/2021 12:00:00 AM EDT [place] ([facility]) 8599023 Sinus headache Sinus Headache Problem 03/17/2021 12:00: 00 AM EDT [place] ([facility]) 03797504 Chronic sinusitis Chronic Sinusitis Problem 03/17/2021 12:00:00 AM EDT [place] ([facility]) 61644999 Hyperlipidemia Hyperlipidemia Problem 03/17/2021 12:00: 00 AM EDT [place] ([facility]) 88648828 Vitamin D deficiency Vitamin D Deficiency Problem 03/17/2021 12:00:00 AM EDT [facility]) 476483915 Seasonal allergy Seasonal Allergy Problem 02/25/2021 12 :00:00 AM EDT [facility]) [id number] Mixed anxiety and depressive disorder Mi xed Anxiety and Depressive Disorder Problem 02/25/2021 12:00:00 AM EDT [place] ([facility]) 517347002 Seasonal allergy Seasonal Allergy Problem 02/25/2021 12 :00:00 AM EDT [place] ([facility]) [id number] Mixed anxiety and depressive disorder Mi xed Anxiety and Depressive Disorder Problem 02/25/2021 12:00:00 AM EDT [facility]) [id number] Seasonal allergy Seasonal Allergy Problem 02/25/2021 12 :00:00 AM EDT [facility]) 393173941 Mixed anxiety and depressive disorder Mi xed Anxiety and Depressive Disorder Problem 02/25/2021 12:00:00 AM EDT [place] ([facility]) 064667627 Seasonal allergy Seasonal Allergy Problem 02/25/2021 12 :00:00 AM EDT [place] ([facility]) 211587968 Mixed anxiety and depressive disorder Mi xed Anxiety and Depressive Disorder Problem 02/25/2021 12:00:00 AM EDT [place] ([facility]) 498878790 Seasonal allergy Seasonal Allergy Problem 02/25/2021 12 :00:00 AM EDT [place] ([facility]) 361575346 Mixed anxiety and depressive disorder Mi xed Anxiety and Depressive Disorder Problem 02/25/2021 12:00:00 AM EDT [place] ([facility]) 941094098 Seasonal allergy Seasonal Allergy Problem 02/25/2021 12 :00:00 AM EDT [place] ([facility]) 088159615 Mixed anxiety and depressive disorder Mi xed Anxiety and Depressive Disorder Problem 02/25/2021 12:00:00 AM EDT [place] ([facility]) 369049095 Seasonal allergy Seasonal Allergy Problem 02/25/2021 12 :00:00 AM EDT [place] ([facility]) 920624121 Mixed anxiety and depressive disorder Mi xed Anxiety and Depressive Disorder Problem 02/25/2021 12:00:00 AM EDT [place] ([facility]) 558749011 Seasonal allergy Seasonal Allergy Problem 02/25/2021 12 :00:00 AM EDT [place] ([facility]) 625613471 Mixed anxiety and depressive disorder Mi xed Anxiety and Depressive Disorder Problem 02/25/2021 12:00:00 AM EDT [place] ([facility]) 018770698 Seasonal allergy Seasonal Allergy Problem 02/25/2021 12 :00:00 AM EDT [place] ([facility]) 489042428 Mixed anxiety and depressive disorder Mi xed Anxiety and Depressive Disorder Problem 02/25/2021 12:00:00 AM EDT [place] ([facility]) 980529034 Seasonal allergy Seasonal Allergy Problem 02/25/2021 12 :00:00 AM EDT [place] ([facility]) 386328750 Mixed anxiety and depressive disorder Mi xed Anxiety and Depressive Disorder Problem 02/25/2021 12:00:00 AM EDT [place] ([facility]) 844588480 Seasonal allergy Seasonal Allergy Problem 02/25/2021 12 :00:00 AM EDT [place] ([facility]) 508073845 Mixed anxiety and depressive disorder Mi xed Anxiety and Depressive Disorder Problem 02/25/2021 12:00:00 AM EDT [place] ([facility]) Surgeries/Procedures Procedure Description Date Indications Data Source(s) PHYSICIAN TELEPHONE EVALUATION 11-20 MIN 07/07/2021 12 :00:00 AM EDT [place] ([facility] ) MRI BRAIN BRAIN STEM W/O CONTRAST MATERIAL 06/15/2021 12:00:00 AM EDT [facility] ([facility] ) MRI BRAIN BRAIN STEM W/O CONTRAST MATERIAL 06/15/2021 12:00:00 AM EDT [facility] ([facility] ) MRI BRAIN BRAIN STEM W/O CONTRAST MATERIAL 06/15/2021 12:00:00 AM EDT [facility] ([facility] ) ELECTROENCEPHALOGRAM W/REC AWAKE&ASLEEP 06/09/2021 12: 00:00 AM [facility] ELECTROENCEPHALOGRAM W/REC AWAKE&ASLEEP 06/09/2021 12: 00:00 AM EDT [facility] OFFICE OUTPATIENT NEW 45 MINUTES 04/30/2021 12:00:00 A M EDT [facility] Results ID Date Data Source [id number] 03/09/2021 12:00:00 AM EDT [facility]) Name Value Range Interpretation Code Description Data Serena rce(s) Supporting Document(s) Reagin Ab [Presence] in Serum by RPR non-reactive non-reactive RPR (DX) W/refl Titer and Confirmatory Testing [facility]) ID Date Data Source [id number] 03/09/2021 12:00:00 AM EDT [facility]) Name Value Range Interpretation Code Description Data Serena rce(s) Supporting Document(s) Hemoglobin A1c/Hemoglobin.total in Blood 4.9 %_of_total_HGB <5.7 Hemoglobin a1C [facility]) ID Date Data Source [id number] 03/09/2021 12:00:00 AM EDT [facility]) Name Value Range Interpretation Code Description Data Serena rce(s) Supporting Document(s) Calcidiol [Mass/volume] in Serum or Plasma 12 NG/mL 30-100 Below low normal Vitamin D,25-Oh,total,ia [facility]) ID Date Data Source [id number] 03/09/2021 12:00:00 AM EDT [facility]) Name Value Range Interpretation Code Description Data Serena rce(s) Supporting Document(s) Thyrotropin [Units/volume] in Serum or Plasma 1.43 mIU/L 0.40-4.50 Tsh [facility] ([facility]) ID Date Data Source [id number] 03/09/2021 12:00:00 AM EDT [place] ([facility]) Name Value Range Interpretation Code Description Data Serena rce(s) Supporting Document(s) Glucose [Mass/volume] in Serum or Plasma 98 mg/dL 65-99 Glucose [place] ([facility]) Creatinine [Mass/volume] in Serum or Plasma 0.88 mg/dL 0.60-1.35 Creatinine [place] ([facility]) Glomerular filtration rate/1.73 sq M.pre dicted among non-blacks [Volume Rate/Area] in Serum, Plasma or Blood by Creatinine-based formula (CKD-EPI) 115 mL/min/1.73m2 > or = 60 eGFR Non-afr. [place] [facility] ([facility]) Urea nitrogen [Mass/volume] in Serum or Plasma 13 mg/dL 7-25 [facility] Glomerular filtration rate/1.73 sq M.pre dicted among blacks [Volume Rate/Area] in Serum, Plasma or Blood by Creatinine-based formula (CKD-EPI) 134 mL/min/1.73m2 > or = 60 eGFR [facility] ([facility]) Urea nitrogen/Creatinine [Mass Ratio] in Serum or Plasma not applic able 6-22 BUN/creatinine Ratio [place] ([facility]) Potassium [Moles/volume] in Serum or Plasma 4.0 mmol/L 3.5-5.3 Potassium [facility] ([facility]) Sodium [Moles/volume] in Serum or Plasma 138 mmol/L 135-146 Sodium [facility] ([facility]) Chloride [Moles/volume] in Serum or Plasma 102 mmol/L 98-110 Chloride [place] ([facility]) Carbon dioxide, total [Moles/volume] in Serum or Plasma 28 mmol/L 20-32 Carbon Dioxide [place] ([facility]) Calcium [Mass/volume] in Serum or Plasma 9.7 mg/dL 8.6-10.3 Calcium [place] ([facility]) Protein [Mass/volume] in Serum or Plasma 7.4 g/dL 6.1-8.1 Protein, Total [facility] ([facility]) Albumin [Mass/volume] in Serum or Plasma 4.4 g/dL 3.6-5.1 Albumin [facility] ([facility]) Aspartate aminotransferase [Enzymatic activity/volume] in Serum or Plasma 27 U/L 10-40 Ast [facility] ([facility]) Bilirubin.total [Mass/volume] in Serum or Plasma 0.7 mg/dL 0.2-1 .2 Bilirubin, Total [facility] ([facility]) Alkaline phosphatase [Enzymatic activity/volume] in Serum or Plasma 51 U/L 36-130 Alkaline Phosphatase [facility] ([facility]) Globulin [Mass/volume] in Serum by calculation 3.0 g/dL_(calc) 1.9- 3.7 Globulin [place] ([facility]) Albumin/Globulin [Mass Ratio] in Serum or Plasma 1.5 (calc) 1.0-2 .5 Albumin/globulin Ratio [facility] ([facility]) Alanine aminotransferase [Enzymatic activity/volume] in Seru m or Plasma 40 U/L 9-46 Alt [facility] ([facility]) ID Date Data Source [id number] 03/09/2021 12:00:00 AM EDT [place] ([facility]) Name Value Range Interpretation Code Description Data Serena rce(s) Supporting Document(s) HIV 1+2 Ab+HIV1 p24 Ag [Presence] in Serum or Plasma b y Immunoassay non-reactive non-reactive HIV Ag/Ab, 4TH Gen [facility] ([facility]) ID Date Data Source [id number] 03/09/2021 12:00:00 AM EDT [place] ([facility]) Name Value Range Interpretation Code Description Data Serena rce(s) Supporting Document(s) Hepatitis A virus IgM Ab [Presence] in Serum or Plasma by Immunoassay non-reactive non-reactive Hepatitis a IgM [facility] ([facility]) Hepatitis B virus core IgM Ab [Presence] in Serum or P lasma by Immunoassay non-reactive non-reactive Hepatitis B Core Antibody (IgM) [facility] ([facility]) Hepatitis C virus Ab Signal/Cutoff in Serum or Plasma by Immunoassa y <1.00 Index [facility] ([facility]) Hepatitis B virus surface Ag [Presence] in Serum or Pl asma by Immunoassay non-reactive non-reactive Hepatitis B Surface Antigen [place] ([facility]) Hepatitis C virus Ab [Presence] in Serum or Plasma by Immuno assay non-reactive non-reactive Hepatitis C Antibody [facility] ([facility]) ID Date Data Source [id number] 03/09/2021 12:00:00 AM EDT [place] ([facility]) Name Value Range Interpretation Code Description Data Serena rce(s) Supporting Document(s) Cholesterol [Mass/volume] in Serum or Plasma 230 mg/dL <200 Above high normal Cholesterol, Total [facility] ([facility]) Cholesterol in HDL [Mass/volume] in Serum or Plasma 50 mg/dL > or = 40 HDL Cholesterol [facility] ([facility]) Cholesterol in LDL [Mass/volume] in Serum or Plasma by calculation 149 mg/dL_(calc) Above high normal LDL-cholesterol [facility] ([facility]) Triglyceride [Mass/volume] in Serum or Plasma 179 mg/dL <150 Above high normal Triglycerides [facility] ([facility]) Cholesterol non HDL [Mass/volume] in Serum or Plasma 180 mg/dL_( calc) <130 Above high normal Non HDL Cholesterol [facility] ([facility]) Cholesterol.total/Cholesterol in HDL [Mass Ratio] in Serum o r Plasma 4.6 (calc) <5.0 Chol/hdlc Ratio [facility] ([facility]) ID Date Data Source [id number] 03/09/2021 12:00:00 AM EDT [facility]) Name Value Range Interpretation Code Description Data Serena rce(s) Supporting Document(s) Reagin Ab [Presence] in Serum by RPR non-reactive non-reactive RPR (DX) W/refl [facility]iter and [facility] ID Date Data Source [id number] 03/09/2021 12:00:00 AM EDT [facility]) Name Value Range Interpretation Code Description Data Serena rce(s) Supporting Document(s) Hemoglobin A1c/Hemoglobin.total in Blood 4.9 %_of_total_HGB <5.7 Hemoglobin a1C [facility]) ID Date Data Source [id number] 03/09/2021 12:00:00 AM EDT [facility]) Name Value Range Interpretation Code Description Data Serena rce(s) Supporting Document(s) Calcidiol [Mass/volume] in Serum or Plasma 12 NG/mL 30-100 Below low normal Vitamin D,25-Oh,total,ia [facility]) ID Date Data Source [id number] 03/09/2021 12:00:00 AM EDT [facility]) Name Value Range Interpretation Code Description Data Serena rce(s) Supporting Document(s) Thyrotropin [Units/volume] in Serum or Plasma 1.43 mIU/L 0.40-4.50 Tsh [facility]) ID Date Data Source [id number] 03/09/2021 12:00:00 AM EDT [facility]) Name Value Range Interpretation Code Description Data Serena rce(s) Supporting Document(s) Glucose [Mass/volume] in Serum or Plasma 98 mg/dL 65-99 Glucose [place] ([facility]) Urea nitrogen [Mass/volume] in Serum or Plasma 13 mg/dL 7-25 Urea Nitrogen (BUN) [facility] ([facility]) Creatinine [Mass/volume] in Serum or Plasma 0.88 mg/dL 0.60-1.35 Creatinine [facility] ([facility]) Glomerular filtration rate/1.73 sq M.pre dicted among non-blacks [Volume Rate/Area] in Serum, Plasma or Blood by Creatinine-based formula (CKD-EPI) 115 mL/min/1.73m2 > or = 60 eGFR Non-afr. [place] [facility] ([facility]) Urea nitrogen/Creatinine [Mass Ratio] in Serum or Plasma not applic able 6-22 BUN/creatinine Ratio [facility] ([facility]) Glomerular filtration rate/1.73 sq M.pre dicted among blacks [Volume Rate/Area] in Serum, Plasma or Blood by Creatinine-based formula (CKD-EPI) 134 mL/min/1.73m2 > or = 60 eGFR [facility] ([facility]) Sodium [Moles/volume] in Serum or Plasma 138 mmol/L 135-146 Sodium [facility] ([facility]) Potassium [Moles/volume] in Serum or Plasma 4.0 mmol/L 3.5-5.3 Potassium [facility] ([facility]) Protein [Mass/volume] in Serum or Plasma 7.4 g/dL 6.1-8.1 Protein, Total [facility] ([facility]) Chloride [Moles/volume] in Serum or Plasma 102 mmol/L 98-110 Chloride [facility] ([facility]) Carbon dioxide, total [Moles/volume] in Serum or Plasma 28 mmol/L 20-32 Carbon Dioxide [facility] ([facility]) Calcium [Mass/volume] in Serum or Plasma 9.7 mg/dL 8.6-10.3 Calcium [place] ([facility]) Alkaline phosphatase [Enzymatic activity/volume] in Serum or Plasma 51 U/L 36-130 Alkaline Phosphatase [place] ([facility]) Globulin [Mass/volume] in Serum by calculation 3.0 g/dL_(calc) 1.9- 3.7 Globulin [place] ([facility]) Albumin [Mass/volume] in Serum or Plasma 4.4 g/dL 3.6-5.1 Albumin [facility]) Bilirubin.total [Mass/volume] in Serum or Plasma 0.7 mg/dL 0.2-1 .2 Bilirubin, Total [facility]) Albumin/Globulin [Mass Ratio] in Serum or Plasma 1.5 (calc) 1.0-2 .5 Albumin/globulin Ratio [facility] ([facility]) Aspartate aminotransferase [Enzymatic activity/volume] in Serum or Plasma 27 U/L 10-40 Ast [facility] ([facility]) Alanine aminotransferase [Enzymatic activity/volume] in Seru m or Plasma 40 U/L 9-46 Alt [facility] ([facility]) ID Date Data Source [id number] 03/09/2021 12:00:00 AM EDT [place] ([facility]) Name Value Range Interpretation Code Description Data Serena rce(s) Supporting Document(s) HIV 1+2 Ab+HIV1 p24 Ag [Presence] in Serum or Plasma b y Immunoassay non-reactive non-reactive HIV Ag/Ab, 4TH Gen [facility] ([facility]) ID Date Data Source [id number] 03/09/2021 12:00:00 AM EDT [place] ([facility]) Name Value Range Interpretation Code Description Data Serena rce(s) Supporting Document(s) Hepatitis B virus surface Ag [Presence] in Serum or Pl asma by Immunoassay non-reactive non-reactive [facility] Hepatitis A virus IgM Ab [Presence] in Serum or Plasma by Immunoassay non-reactive non-reactive Hepatitis a IgM [facility] ([facility]) Hepatitis B virus core IgM Ab [Presence] in Serum or P lasma by Immunoassay non-reactive non-reactive Hepatitis B Core Antibody (IgM) [facility] ([facility]) Hepatitis C virus Ab [Presence] in Serum or Plasma by Immuno assay non-reactive non-reactive Hepatitis C Antibody [facility] ([facility]) Hepatitis C virus Ab Signal/Cutoff in Serum or Plasma by Immunoassa y <1.00 Index [facility] ([facility]) ID Date Data Source [id number] 03/09/2021 12:00:00 AM EDT [facility]) Name Value Range Interpretation Code Description Data Serena rce(s) Supporting Document(s) Cholesterol [Mass/volume] in Serum or Plasma 230 mg/dL <200 Above high normal Cholesterol, Total [place] ([facility]) Cholesterol in HDL [Mass/volume] in Serum or Plasma 50 mg/dL > or = 40 HDL Cholesterol [facility] ([facility]) Cholesterol in LDL [Mass/volume] in Serum or Plasma by calculation 149 mg/dL_(calc) Above high normal LDL-cholesterol [facility] ([facility]) Cholesterol.total/Cholesterol in HDL [Mass Ratio] in Serum o r Plasma 4.6 (calc) <5.0 Chol/hdlc Ratio [facility] ([facility]) Triglyceride [Mass/volume] in Serum or Plasma 179 mg/dL <150 Above high normal Triglycerides [facility] ([facility]) Cholesterol non HDL [Mass/volume] in Serum or Plasma 180 mg/dL_( calc) <130 Above high normal Non HDL Cholesterol [place] ([facility]) ID Date Data Source [id number] 03/09/2021 12:00:00 AM EDT [facility]) Name Value Range Interpretation Code Description Data Serena rce(s) Supporting Document(s) Reagin Ab [Presence] in Serum by RPR non-reactive non-reactive RPR (DX) W/refl Titer and Confirmatory Testing [facility]) ID Date Data Source [id number] 03/09/2021 12:00:00 AM EDT [facility]) Name Value Range Interpretation Code Description Data Serena rce(s) Supporting Document(s) Hemoglobin A1c/Hemoglobin.total in Blood 4.9 %_of_total_HGB <5.7 Hemoglobin a1C [facility]) ID Date Data Source [id number] 03/09/2021 12:00:00 AM EDT [facility]) Name Value Range Interpretation Code Description Data Serena rce(s) Supporting Document(s) Calcidiol [Mass/volume] in Serum or Plasma 12 NG/mL 30-100 Below low normal Vitamin D,25-[facility],total,ia [facility] ID Date Data Source [id number] 03/09/2021 12:00:00 AM EDT [facility]) Name Value Range Interpretation Code Description Data Serena rce(s) Supporting Document(s) Thyrotropin [Units/volume] in Serum or Plasma 1.43 mIU/L 0.40-4.50 Tsh [facility]) ID Date Data Source [id number] 03/09/2021 12:00:00 AM EDT [facility]) Name Value Range Interpretation Code Description Data Serena rce(s) Supporting Document(s) Urea nitrogen [Mass/volume] in Serum or Plasma 13 mg/dL 7-25 [facility]UN) [facility] Glucose [Mass/volume] in Serum or Plasma 98 mg/dL 65-99 Glucose [place] ([facility]) Creatinine [Mass/volume] in Serum or Plasma 0.88 mg/dL 0.60-1.35 Creatinine [place] ([facility]) Urea nitrogen/Creatinine [Mass Ratio] in Serum or Plasma not applic able 6-22 BUN/creatinine Ratio [facility] ([facility]) Glomerular filtration rate/1.73 sq M.pre dicted among blacks [Volume Rate/Area] in Serum, Plasma or Blood by Creatinine-based formula (CKD-EPI) 134 mL/min/1.73m2 > or = 60 eGFR [facility] ([facility]) Potassium [Moles/volume] in Serum or Plasma 4.0 mmol/L 3.5-5.3 Potassium [facility] ([facility]) Glomerular filtration rate/1.73 sq M.pre dicted among non-blacks [Volume Rate/Area] in Serum, Plasma or Blood by Creatinine-based formula (CKD-EPI) 115 mL/min/1.73m2 > or = 60 eGFR Non-afr. [place] [facility] ([facility]) Sodium [Moles/volume] in Serum or Plasma 138 mmol/L 135-146 Sodium [place] ([facility]) Carbon dioxide, total [Moles/volume] in Serum or Plasma 28 mmol/L 20-32 Carbon Dioxide [facility] ([facility]) Chloride [Moles/volume] in Serum or Plasma 102 mmol/L 98-110 Chloride [facility] ([facility]) Calcium [Mass/volume] in Serum or Plasma 9.7 mg/dL 8.6-10.3 Calcium [place] ([facility]) Protein [Mass/volume] in Serum or Plasma 7.4 g/dL 6.1-8.1 Protein, Total [facility] ([facility]) Albumin [Mass/volume] in Serum or Plasma 4.4 g/dL 3.6-5.1 Albumin [place] ([facility]) Aspartate aminotransferase [Enzymatic activity/volume] in Serum or Plasma 27 U/L 10-40 Ast [place] ([facility]) Alkaline phosphatase [Enzymatic activity/volume] in Serum or Plasma 51 U/L 36-130 Alkaline Phosphatase [place] ([facility]) Bilirubin.total [Mass/volume] in Serum or Plasma 0.7 mg/dL 0.2-1 .2 Bilirubin, Total [place] ([facility]) Globulin [Mass/volume] in Serum by calculation 3.0 g/dL_(calc) 1.9- 3.7 Globulin [place] ([facility]) Albumin/Globulin [Mass Ratio] in Serum or Plasma 1.5 (calc) 1.0-2 .5 Albumin/globulin Ratio [place] ([facility]) Alanine aminotransferase [Enzymatic activity/volume] in Seru m or Plasma 40 U/L 9-46 Alt [place] ([facility]) ID Date Data Source [id number] 03/09/2021 12:00:00 AM EDT [place] ([facility]) Name Value Range Interpretation Code Description Data Serena rce(s) Supporting Document(s) HIV 1+2 Ab+HIV1 p24 Ag [Presence] in Serum or Plasma b y Immunoassay non-reactive non-reactive HIV Ag/Ab, 4TH Gen [facility]) ID Date Data Source [id number] 03/09/2021 12:00:00 AM EDT [place] ([facility]) Name Value Range Interpretation Code Description Data Serena rce(s) Supporting Document(s) Hepatitis A virus IgM Ab [Presence] in Serum or Plasma by Immunoassay non-reactive non-reactive Hepatitis a IgM [facility] ([facility]) Hepatitis B virus surface Ag [Presence] in Serum or Pl asma by Immunoassay non-reactive non-reactive Hepatitis B Surface Antigen [facility] [place] ([facility]) Hepatitis B virus core IgM Ab [Presence] in Serum or P lasma by Immunoassay non-reactive non-reactive Hepatitis B Core Antibody (IgM) [facility] ([facility]) Hepatitis C virus Ab [Presence] in Serum or Plasma by Immuno assay non-reactive non-reactive Hepatitis C Antibody [facility] ([facility]) Hepatitis C virus Ab Signal/Cutoff in Serum or Plasma by Immunoassa y <1.00 Index [facility] ([facility]) ID Date Data Source [id number] 03/09/2021 12:00:00 AM EDT [place] ([facility]) Name Value Range Interpretation Code Description Data Serena rce(s) Supporting Document(s) Cholesterol [Mass/volume] in Serum or Plasma 230 mg/dL <200 Above high normal Cholesterol, Total [facility] ([facility]) Triglyceride [Mass/volume] in Serum or Plasma 179 mg/dL <150 Above high normal Triglycerides [facility] ([facility]) Cholesterol in HDL [Mass/volume] in Serum or Plasma 50 mg/dL > or = 40 HDL Cholesterol [facility] ([facility]) Cholesterol.total/Cholesterol in HDL [Mass Ratio] in Serum o r Plasma 4.6 (calc) <5.0 Chol/hdlc Ratio [facility] ([facility]) Cholesterol non HDL [Mass/volume] in Serum or Plasma 180 mg/dL_( calc) <130 Above high normal Non HDL Cholesterol [facility] ([facility]) Cholesterol in LDL [Mass/volume] in Serum or Plasma by calculation 149 mg/dL_(calc) Above high normal LDL-cholesterol [facility] ([facility]) ID Date Data Source [id number] 03/09/2021 12:00:00 AM EDT [facility]) Name Value Range Interpretation Code Description Data Serena rce(s) Supporting Document(s) Reagin Ab [Presence] in Serum by RPR non-reactive non-reactive RPR (DX) W/refl Titer and Confirmatory Testing [facility]) ID Date Data Source [id number] 03/09/2021 12:00:00 AM EDT [facility]) Name Value Range Interpretation Code Description Data Serena rce(s) Supporting Document(s) Hemoglobin A1c/Hemoglobin.total in Blood 4.9 %_of_total_HGB <5.7 Hemoglobin a1C [facility]) ID Date Data Source [id number] 03/09/2021 12:00:00 AM EDT [facility]) Name Value Range Interpretation Code Description Data Serena rce(s) Supporting Document(s) Calcidiol [Mass/volume] in Serum or Plasma 12 NG/mL 30-100 Below low normal Vitamin D,25-Oh,total,ia [facility]) ID Date Data Source [id number] 03/09/2021 12:00:00 AM EDT [facility]) Name Value Range Interpretation Code Description Data Serena rce(s) Supporting Document(s) Thyrotropin [Units/volume] in Serum or Plasma 1.43 mIU/L 0.40-4.50 Tsh [facility]) ID Date Data Source [id number] 03/09/2021 12:00:00 AM EDT [facility]) Name Value Range Interpretation Code Description Data Serena rce(s) Supporting Document(s) Urea nitrogen [Mass/volume] in Serum or Plasma 13 mg/dL 7-25 [facility] Glucose [Mass/volume] in Serum or Plasma 98 mg/dL 65-99 Glucose [facility] ([facility]) Urea nitrogen/Creatinine [Mass Ratio] in Serum or Plasma not applic able 6-22 BUN/creatinine Ratio [facility] ([facility]) Glomerular filtration rate/1.73 sq M.pre dicted among non-blacks [Volume Rate/Area] in Serum, Plasma or Blood by Creatinine-based formula (CKD-EPI) 115 mL/min/1.73m2 > or = 60 eGFR Non-afr. [place] [facility] ([facility]) Glomerular filtration rate/1.73 sq M.pre dicted among blacks [Volume Rate/Area] in Serum, Plasma or Blood by Creatinine-based formula (CKD-EPI) 134 mL/min/1.73m2 > or = 60 eGFR [facility] ([facility]) Sodium [Moles/volume] in Serum or Plasma 138 mmol/L 135-146 Sodium AKASH ([facility]) Creatinine [Mass/volume] in Serum or Plasma 0.88 mg/dL 0.60-1.35 Creatinine AKASH ([facility]) Chloride [Moles/volume] in Serum or Plasma 102 mmol/L 98-110 Chloride AKASH ([facility]) Protein [Mass/volume] in Serum or Plasma 7.4 g/dL 6.1-8.1 Protein, Total AKASH ([facility]) Carbon dioxide, total [Moles/volume] in Serum or Plasma 28 mmol/L 20-32 Carbon Dioxide [place] ([facility]) Potassium [Moles/volume] in Serum or Plasma 4.0 mmol/L 3.5-5.3 Potassium AKASH ([facility]) Calcium [Mass/volume] in Serum or Plasma 9.7 mg/dL 8.6-10.3 Calcium AKASH ([facility]) Globulin [Mass/volume] in Serum by calculation 3.0 g/dL_(calc) 1.9- 3.7 Globulin AKASH ([facility]) Albumin/Globulin [Mass Ratio] in Serum or Plasma 1.5 (calc) 1.0-2 .5 Albumin/globulin Ratio AKASH ([facility]) Alkaline phosphatase [Enzymatic activity/volume] in Serum or Plasma 51 U/L 36-130 Alkaline Phosphatase [place] ([facility]) Bilirubin.total [Mass/volume] in Serum or Plasma 0.7 mg/dL 0.2-1 .2 Bilirubin, Total AKASH ([facility]) Albumin [Mass/volume] in Serum or Plasma 4.4 g/dL 3.6-5.1 Albumin AKASH ([facility]) Aspartate aminotransferase [Enzymatic activity/volume] in Serum or Plasma 27 U/L 10-40 Ast [place] ([facility]) Alanine aminotransferase [Enzymatic activity/volume] in Seru m or Plasma 40 U/L 9-46 Alt AKASH ([facility]) ID Date Data Source [id number] 03/09/2021 12:00:00 AM EDT [facility]) Name Value Range Interpretation Code Description Data Serena rce(s) Supporting Document(s) HIV 1+2 Ab+HIV1 p24 Ag [Presence] in Serum or Plasma b y Immunoassay non-reactive non-reactive [facility] Date Data Source [id number] 03/09/2021 12:00:00 AM EDT [place] ([facility]) Name Value Range Interpretation Code Description Data Serena rce(s) Supporting Document(s) Hepatitis C virus Ab [Presence] in Serum or Plasma by Immuno assay non-reactive non-reactive Hepatitis C Antibody AKASH ([facility]) Hepatitis A virus IgM Ab [Presence] in Serum or Plasma by Immunoassay non-reactive non-reactive Hepatitis a IgM [facility] ([facility]) Hepatitis B virus surface Ag [Presence] in Serum or Pl asma by Immunoassay non-reactive non-reactive Hepatitis B Surface Antigen ATHE NA ([facility]) Hepatitis B virus core IgM Ab [Presence] in Serum or P lasma by Immunoassay non-reactive non-reactive Hepatitis B Core Antibody (IgM) AKASH ([facility]) Hepatitis C virus Ab Signal/Cutoff in Serum or Plasma by Immunoassa y <1.00 Index AKASH ([facility]) ID Date Data Source [id number] 03/09/2021 12:00:00 AM EDT [place] ([facility]) Name Value Range Interpretation Code Description Data Serena rce(s) Supporting Document(s) Cholesterol in HDL [Mass/volume] in Serum or Plasma 50 mg/dL > or = 40 HDL Cholesterol AKASH ([facility]) Cholesterol [Mass/volume] in Serum or Plasma 230 mg/dL <200 Above high normal Cholesterol, Total AKASH ([facility]) Cholesterol in LDL [Mass/volume] in Serum or Plasma by calculation 149 mg/dL_(calc) Above high normal LDL-cholesterol [facility] ([facility]) Triglyceride [Mass/volume] in Serum or Plasma 179 mg/dL <150 Above high normal Triglycerides [facility]ASH ([facility]) Cholesterol.total/Cholesterol in HDL [Mass Ratio] in Serum o r Plasma 4.6 (calc) <5.0 Chol/hdlc Ratio AKASH ([facility]) Cholesterol non HDL [Mass/volume] in Serum or Plasma 180 mg/dL_( calc) <130 Above high normal Non HDL Cholesterol AKASH ([facility]) ID Date Data Source [id number] 03/09/2021 12:00:00 AM EDT [facility]) Name Value Range Interpretation Code Description Data Serena rce(s) Supporting Document(s) Reagin Ab [Presence] in Serum by RPR non-reactive non-reactive RPR (DX) W/refl [facility]iter [facility] ID Date Data Source [id number] 03/09/2021 12:00:00 AM EDT [facility]) Name Value Range Interpretation Code Description Data Serena rce(s) Supporting Document(s) Hemoglobin A1c/Hemoglobin.total in Blood 4.9 %_of_total_HGB <5.7 [facility]C [facility] ID Date Data Source [id number] 03/09/2021 12:00:00 AM EDT [facility]) Name Value Range Interpretation Code Description Data Serena rce(s) Supporting Document(s) Calcidiol [Mass/volume] in Serum or Plasma 12 NG/mL 30-100 Below low normal Vitamin D,25-Oh,total,ia [facility]) ID Date Data Source [id number] 03/09/2021 12:00:00 AM EDT [facility]) Name Value Range Interpretation Code Description Data Serena rce(s) Supporting Document(s) Thyrotropin [Units/volume] in Serum or Plasma 1.43 mIU/L 0.40-4.50 Tsh [facility]) ID Date Data Source [id number] 03/09/2021 12:00:00 AM EDT [facility]) Name Value Range Interpretation Code Description Data Serena rce(s) Supporting Document(s) Glucose [Mass/volume] in Serum or Plasma 98 mg/dL 65-99 Glucose [place] ([facility]) Urea nitrogen [Mass/volume] in Serum or Plasma 13 mg/dL 7-25 Urea Nitrogen (BUN) [place] ([facility]) Glomerular filtration rate/1.73 sq M.pre dicted among non-blacks [Volume Rate/Area] in Serum, Plasma or Blood by Creatinine-based formula (CKD-EPI) 115 mL/min/1.73m2 > or = 60 eGFR Non-afr. [place] AKASH ([facility]) Creatinine [Mass/volume] in Serum or Plasma 0.88 mg/dL 0.60-1.35 Creatinine [facility] ([facility]) Glomerular filtration rate/1.73 sq M.pre dicted among blacks [Volume Rate/Area] in Serum, Plasma or Blood by Creatinine-based formula (CKD-EPI) 134 mL/min/1.73m2 > or = 60 eGFR [facility] ([facility]) Chloride [Moles/volume] in Serum or Plasma 102 mmol/L 98-110 Chloride [place] ([facility]) Carbon dioxide, total [Moles/volume] in Serum or Plasma 28 mmol/L 20-32 Carbon Dioxide [facility] ([facility]) Sodium [Moles/volume] in Serum or Plasma 138 mmol/L 135-146 Sodium [facility] ([facility]) Potassium [Moles/volume] in Serum or Plasma 4.0 mmol/L 3.5-5.3 Potassium [facility] ([facility]) Urea nitrogen/Creatinine [Mass Ratio] in Serum or Plasma not applic able 6-22 BUN/creatinine Ratio [facility] ([facility]) Protein [Mass/volume] in Serum or Plasma 7.4 g/dL 6.1-8.1 Protein, Total [facility] ([facility]) Albumin [Mass/volume] in Serum or Plasma 4.4 g/dL 3.6-5.1 Albumin [place] ([facility]) Calcium [Mass/volume] in Serum or Plasma 9.7 mg/dL 8.6-10.3 Calcium [place] ([facility]) Globulin [Mass/volume] in Serum by calculation 3.0 g/dL_(calc) 1.9- 3.7 Globulin [place] ([facility]) Bilirubin.total [Mass/volume] in Serum or Plasma 0.7 mg/dL 0.2-1 .2 Bilirubin, Total [place] ([facility]) Albumin/Globulin [Mass Ratio] in Serum or Plasma 1.5 (calc) 1.0-2 .5 Albumin/globulin Ratio [facility]ASH ([facility]) Alkaline phosphatase [Enzymatic activity/volume] in Serum or Plasma 51 U/L 36-130 Alkaline Phosphatase [facility] ([facility]) Aspartate aminotransferase [Enzymatic activity/volume] in Serum or Plasma 27 U/L 10-40 Ast [place] ([facility]) Alanine aminotransferase [Enzymatic activity/volume] in Seru m or Plasma 40 U/L 9-46 Alt [facility] ([facility]) ID Date Data Source [id number] 03/09/2021 12:00:00 AM EDT [place] ([facility]) Name Value Range Interpretation Code Description Data Serena rce(s) Supporting Document(s) HIV 1+2 Ab+HIV1 p24 Ag [Presence] in Serum or Plasma b y Immunoassay non-reactive non-reactive HIV Ag/Ab, 4TH Gen [facility] ([facility]) ID Date Data Source [id number] 03/09/2021 12:00:00 AM EDT [facility]) Name Value Range Interpretation Code Description Data Serena rce(s) Supporting Document(s) Hepatitis A virus IgM Ab [Presence] in Serum or Plasma by Immunoassay non-reactive non-reactive Hepatitis a IgM [facility] ([facility]) Hepatitis C virus Ab [Presence] in Serum or Plasma by Immuno assay non-reactive non-reactive Hepatitis C Antibody [place] ([facility]) Hepatitis B virus surface Ag [Presence] in Serum or Pl asma by Immunoassay non-reactive non-reactive Hepatitis B Surface Antigen [place] ([facility]) Hepatitis B virus core IgM Ab [Presence] in Serum or P lasma by Immunoassay non-reactive non-reactive Hepatitis B Core Antibody (IgM) [place] ([facility]) Hepatitis C virus Ab Signal/Cutoff in Serum or Plasma by Immunoassa y <1.00 [facility] ID Date Data Source [id number] 03/09/2021 12:00:00 AM EDT [facility]) Name Value Range Interpretation Code Description Data Serena rce(s) Supporting Document(s) Cholesterol [Mass/volume] in Serum or Plasma 230 mg/dL <200 Above high normal Cholesterol, Total [place] ([facility]) Cholesterol in HDL [Mass/volume] in Serum or Plasma 50 mg/dL > or = 40 HDL Cholesterol [facility] ([facility]) Triglyceride [Mass/volume] in Serum or Plasma 179 mg/dL <150 Above high normal Triglycerides [place] ([facility]) Cholesterol in LDL [Mass/volume] in Serum or Plasma by calculation 149 mg/dL_(calc) Above high normal LDL-cholesterol [place] ([facility]) Cholesterol non HDL [Mass/volume] in Serum or Plasma 180 mg/dL_( calc) <130 Above high normal Non HDL Cholesterol [facility] ([facility]) Cholesterol.total/Cholesterol in HDL [Mass Ratio] in Serum o r Plasma 4.6 (calc) <5.0 Chol/hdlc Ratio [place] ([facility]) ID Date Data Source [id number] 03/09/2021 12:00:00 AM EDT [facility]) Name Value Range Interpretation Code Description Data Serena rce(s) Supporting Document(s) Reagin Ab [Presence] in Serum by RPR non-reactive non-reactive RPR (DX) W/refl Titer and Confirmatory Testing [facility]) ID Date Data Source [id number] 03/09/2021 12:00:00 AM EDT [facility]) Name Value Range Interpretation Code Description Data Serena rce(s) Supporting Document(s) Hemoglobin A1c/Hemoglobin.total in Blood 4.9 %_of_total_HGB <5.7 Hemoglobin a1C [facility]) ID Date Data Source [id number] 03/09/2021 12:00:00 AM EDT [facility]) Name Value Range Interpretation Code Description Data Serena rce(s) Supporting Document(s) Calcidiol [Mass/volume] in Serum or Plasma 12 NG/mL 30-100 Below low normal Vitamin D,25-Oh,total,ia [facility]) ID Date Data Source [id number] 03/09/2021 12:00:00 AM EDT [facility]) Name Value Range Interpretation Code Description Data Serena rce(s) Supporting Document(s) Thyrotropin [Units/volume] in Serum or Plasma 1.43 mIU/L 0.40-4.50 Tsh [facility]) ID Date Data Source [id number] 03/09/2021 12:00:00 AM EDT AKASH ([facility]) Name Value Range Interpretation Code Description Data Serena rce(s) Supporting Document(s) Urea nitrogen [Mass/volume] in Serum or Plasma 13 mg/dL 7-25 Urea Nitrogen (BUN) [facility] ([facility]) Glucose [Mass/volume] in Serum or Plasma 98 mg/dL 65-99 Glucose [facility] ([facility]) Glomerular filtration rate/1.73 sq M.pre dicted among blacks [Volume Rate/Area] in Serum, Plasma or Blood by Creatinine-based formula (CKD-EPI) 134 mL/min/1.73m2 > or = 60 eGFR [facility]ASH ([facility]) Glomerular filtration rate/1.73 sq M.pre dicted among non-blacks [Volume Rate/Area] in Serum, Plasma or Blood by Creatinine-based formula (CKD-EPI) 115 mL/min/1.73m2 > or = 60 eGFR Non-afr. [place] AKASH ([facility]) Sodium [Moles/volume] in Serum or Plasma 138 mmol/L 135-146 Sodium AKASH ([facility]) Urea nitrogen/Creatinine [Mass Ratio] in Serum or Plasma not applic able 6-22 BUN/creatinine Ratio [facility]ASH ([facility]) Creatinine [Mass/volume] in Serum or Plasma 0.88 mg/dL 0.60-1.35 Creatinine [place] ([facility]) Calcium [Mass/volume] in Serum or Plasma 9.7 mg/dL 8.6-10.3 Calcium [facility]ASH ([facility]) Protein [Mass/volume] in Serum or Plasma 7.4 g/dL 6.1-8.1 Protein, Total [place] ([facility]) Potassium [Moles/volume] in Serum or Plasma 4.0 mmol/L 3.5-5.3 Potassium [place] ([facility]) Carbon dioxide, total [Moles/volume] in Serum or Plasma 28 mmol/L 20-32 Carbon Dioxide [place] ([facility]) Chloride [Moles/volume] in Serum or Plasma 102 mmol/L 98-110 Chloride [place] ([facility]) Globulin [Mass/volume] in Serum by calculation 3.0 g/dL_(calc) 1.9- 3.7 Globulin [place] ([facility]) Bilirubin.total [Mass/volume] in Serum or Plasma 0.7 mg/dL 0.2-1 .2 Bilirubin, Total [place] ([facility]) Alkaline phosphatase [Enzymatic activity/volume] in Serum or Plasma 51 U/L 36-130 Alkaline Phosphatase [place] ([facility]) Albumin [Mass/volume] in Serum or Plasma 4.4 g/dL 3.6-5.1 Albumin [place] ([facility]) Albumin/Globulin [Mass Ratio] in Serum or Plasma 1.5 (calc) 1.0-2 .5 Albumin/globulin Ratio [facility] ([facility]) Aspartate aminotransferase [Enzymatic activity/volume] in Serum or Plasma 27 U/L 10-40 Ast [place] ([facility]) Alanine aminotransferase [Enzymatic activity/volume] in Seru m or Plasma 40 U/L 9-46 Alt [place] ([facility]) ID Date Data Source [id number] 03/09/2021 12:00:00 AM EDT [facility]) Name Value Range Interpretation Code Description Data Serena rce(s) Supporting Document(s) HIV 1+2 Ab+HIV1 p24 Ag [Presence] in Serum or Plasma b y Immunoassay non-reactive non-reactive HIV Ag/Ab, 4TH Gen [place] ([facility]) ID Date Data Source [id number] 03/09/2021 12:00:00 AM EDT [facility]) Name Value Range Interpretation Code Description Data Serena rce(s) Supporting Document(s) Hepatitis B virus surface Ag [Presence] in Serum or Pl asma by Immunoassay non-reactive non-reactive Hepatitis B Surface Antigen ATHE NA ([facility]) Hepatitis A virus IgM Ab [Presence] in Serum or Plasma by Immunoassay non-reactive non-reactive Hepatitis a IgM [facility] ([facility]) Hepatitis B virus core IgM Ab [Presence] in Serum or P lasma by Immunoassay non-reactive non-reactive Hepatitis B Core Antibody (IgM) [place] ([facility]) Hepatitis C virus Ab Signal/Cutoff in Serum or Plasma by Immunoassa y <1.00 Index [facility] ([facility]) Hepatitis C virus Ab [Presence] in Serum or Plasma by Immuno assay non-reactive non-reactive Hepatitis C Antibody [place] ([facility]) ID Date Data Source [id number] 03/09/2021 12:00:00 AM EDT [place] ([facility]) Name Value Range Interpretation Code Description Data Serena rce(s) Supporting Document(s) Cholesterol [Mass/volume] in Serum or Plasma 230 mg/dL <200 Above high normal Cholesterol, Total [facility] ([facility]) Cholesterol in LDL [Mass/volume] in Serum or Plasma by calculation 149 mg/dL_(calc) Above high normal LDL-cholesterol [facility] ([facility]) Triglyceride [Mass/volume] in Serum or Plasma 179 mg/dL <150 Above high normal Triglycerides [facility]ASH ([facility]) Cholesterol in HDL [Mass/volume] in Serum or Plasma 50 mg/dL > or = 40 HDL Cholesterol [facility] ([facility]) Cholesterol non HDL [Mass/volume] in Serum or Plasma 180 mg/dL_( calc) <130 Above high normal Non HDL Cholesterol AK[facility] ([facility]) Cholesterol.total/Cholesterol in HDL [Mass Ratio] in Serum o r Plasma 4.6 (calc) <5.0 Chol/hdlc Ratio [facility] ([facility]) ID Date Data Source [id number] 03/09/2021 12:00:00 AM EDT [place] ([facility]) Name Value Range Interpretation Code Description Data Serena rce(s) Supporting Document(s) Reagin Ab [Presence] in Serum by RPR non-reactive non-reactive RPR (DX) W/refl [facility]iter [facility] ID Date Data Source [id number] 03/09/2021 12:00:00 AM EDT [facility]) Name Value Range Interpretation Code Description Data Serena rce(s) Supporting Document(s) Hemoglobin A1c/Hemoglobin.total in Blood 4.9 %_of_total_HGB <5.7 Hemoglobin a1C [facility]) ID Date Data Source [id number] 03/09/2021 12:00:00 AM EDT [facility]) Name Value Range Interpretation Code Description Data Serena rce(s) Supporting Document(s) Calcidiol [Mass/volume] in Serum or Plasma 12 NG/mL 30-100 Below low normal Vitamin D,25-Oh,total,ia [facility]) ID Date Data Source [id number] 03/09/2021 12:00:00 AM EDT [facility]) Name Value Range Interpretation Code Description Data Serena rce(s) Supporting Document(s) Thyrotropin [Units/volume] in Serum or Plasma 1.43 mIU/L 0.40-4.50 Tsh [facility]) ID Date Data Source [id number] 03/09/2021 12:00:00 AM EDT [facility]) Name Value Range Interpretation Code Description Data Serena rce(s) Supporting Document(s) Urea nitrogen [Mass/volume] in Serum or Plasma 13 mg/dL 7-25 Urea Nitrogen (BUN) [facility] ([facility]) Glucose [Mass/volume] in Serum or Plasma 98 mg/dL 65-99 Glucose [facility]) Creatinine [Mass/volume] in Serum or Plasma 0.88 mg/dL 0.60-1.35 Creatinine [place] ([facility]) Glomerular filtration rate/1.73 sq M.pre dicted among non-blacks [Volume Rate/Area] in Serum, Plasma or Blood by Creatinine-based formula (CKD-EPI) 115 mL/min/1.73m2 > or = 60 eGFR Non-afr. [place] AKASH ([facility]) Urea nitrogen/Creatinine [Mass Ratio] in Serum or Plasma not applic able 6-22 BUN/creatinine Ratio [facility]ASH ([facility]) Sodium [Moles/volume] in Serum or Plasma 138 mmol/L 135-146 Sodium [facility] ([facility]) Glomerular filtration rate/1.73 sq M.pre dicted among blacks [Volume Rate/Area] in Serum, Plasma or Blood by Creatinine-based formula (CKD-EPI) 134 mL/min/1.73m2 > or = 60 eGFR [facility] ([facility]) Potassium [Moles/volume] in Serum or Plasma 4.0 mmol/L 3.5-5.3 Potassium [facility] ([facility]) Chloride [Moles/volume] in Serum or Plasma 102 mmol/L 98-110 Chloride [place] ([facility]) Carbon dioxide, total [Moles/volume] in Serum or Plasma 28 mmol/L 20-32 Carbon Dioxide [facility] ([facility]) Protein [Mass/volume] in Serum or Plasma 7.4 g/dL 6.1-8.1 Protein, Total [place] ([facility]) Albumin [Mass/volume] in Serum or Plasma 4.4 g/dL 3.6-5.1 Albumin [place] ([facility]) Calcium [Mass/volume] in Serum or Plasma 9.7 mg/dL 8.6-10.3 Calcium [place] ([facility]) Globulin [Mass/volume] in Serum by calculation 3.0 g/dL_(calc) 1.9- 3.7 Globulin [place] ([facility]) Bilirubin.total [Mass/volume] in Serum or Plasma 0.7 mg/dL 0.2-1 .2 Bilirubin, Total [place] ([facility]) Albumin/Globulin [Mass Ratio] in Serum or Plasma 1.5 (calc) 1.0-2 .5 Albumin/globulin Ratio [facility]ASH ([facility]) Alanine aminotransferase [Enzymatic activity/volume] in Seru m or Plasma 40 U/L 9-46 Alt [place] ([facility]) Aspartate aminotransferase [Enzymatic activity/volume] in Serum or Plasma 27 U/L 10-40 Ast AKASH ([facility]) Alkaline phosphatase [Enzymatic activity/volume] in Serum or Plasma 51 U/L 36-130 Alkaline Phosphatase [place] ([facility]) ID Date Data Source [id number] 03/09/2021 12:00:00 AM EDT [place] ([facility]) Name Value Range Interpretation Code Description Data Serena rce(s) Supporting Document(s) HIV 1+2 Ab+HIV1 p24 Ag [Presence] in Serum or Plasma b y Immunoassay non-reactive non-reactive HIV Ag/Ab, 4TH Gen [facility]ASH ([facility]) ID Date Data Source [id number] 03/09/2021 12:00:00 AM EDT [place] ([facility]) Name Value Range Interpretation Code Description Data Serena rce(s) Supporting Document(s) Hepatitis B virus surface Ag [Presence] in Serum or Pl asma by Immunoassay non-reactive non-reactive Hepatitis B Surface Antigen ATHE ([facility]) Hepatitis A virus IgM Ab [Presence] in Serum or Plasma by Immunoassay non-reactive non-reactive Hepatitis a IgM [facility] ([facility]) Hepatitis C virus Ab Signal/Cutoff in Serum or Plasma by Immunoassa y <1.00 Index AKASH ([facility]) Hepatitis B virus core IgM Ab [Presence] in Serum or P lasma by Immunoassay non-reactive non-reactive Hepatitis B Core Antibody (IgM) [facility] ([facility]) Hepatitis C virus Ab [Presence] in Serum or Plasma by Immuno assay non-reactive non-reactive Hepatitis C Antibody [facility] ([facility]) ID Date Data Source [id number] 03/09/2021 12:00:00 AM EDT [facility] ([facility]) Name Value Range Interpretation Code Description Data Serena rce(s) Supporting Document(s) Cholesterol [Mass/volume] in Serum or Plasma 230 mg/dL <200 Above high normal Cholesterol, Total AKASH ([facility]) Triglyceride [Mass/volume] in Serum or Plasma 179 mg/dL <150 Above high normal Triglycerides AKASH ([facility]) Cholesterol in HDL [Mass/volume] in Serum or Plasma 50 mg/dL > or = 40 HDL Cholesterol AKASH ([facility]) Cholesterol.total/Cholesterol in HDL [Mass Ratio] in Serum o r Plasma 4.6 (calc) <5.0 Chol/hdlc Ratio AKASH ([facility]) Cholesterol non HDL [Mass/volume] in Serum or Plasma 180 mg/dL_( calc) <130 Above high normal Non HDL Cholesterol AKASH ([facility]) Cholesterol in LDL [Mass/volume] in Serum or Plasma by calculation 149 mg/dL_(calc) Above high normal LDL-cholesterol [facility]) ID Date Data Source [id number] 03/09/2021 12:00:00 AM EDT [facility]) Name Value Range Interpretation Code Description Data Serena rce(s) Supporting Document(s) Reagin Ab [Presence] in Serum by RPR non-reactive non-reactive RPR (DX) W/refl Titer and Confirmatory Testing [facility]) ID Date Data Source [id number] 03/09/2021 12:00:00 AM EDT [facility]) Name Value Range Interpretation Code Description Data Serena rce(s) Supporting Document(s) Hemoglobin A1c/Hemoglobin.total in Blood 4.9 %_of_total_HGB <5.7 Hemoglobin a1C [facility]) ID Date Data Source [id number] 03/09/2021 12:00:00 AM EDT [facility]) Name Value Range Interpretation Code Description Data Serena rce(s) Supporting Document(s) Calcidiol [Mass/volume] in Serum or Plasma 12 NG/mL 30-100 Below low normal Vitamin D,25-Oh,total,ia [facility]) ID Date Data Source [id number] 03/09/2021 12:00:00 AM EDT [facility]) Name Value Range Interpretation Code Description Data Serena rce(s) Supporting Document(s) Thyrotropin [Units/volume] in Serum or Plasma 1.43 mIU/L 0.40-4.50 Tsh [place] ([facility]) ID Date Data Source [id number] 03/09/2021 12:00:00 AM EDT [place] ([facility]) Name Value Range Interpretation Code Description Data Serena rce(s) Supporting Document(s) Urea nitrogen [Mass/volume] in Serum or Plasma 13 mg/dL 7-25 Urea Nitrogen (BUN) AKASH ([facility]) Glucose [Mass/volume] in Serum or Plasma 98 mg/dL 65-99 Glucose AKASH ([facility]) Urea nitrogen/Creatinine [Mass Ratio] in Serum or Plasma not applic able 6-22 BUN/creatinine Ratio [place] ([facility]) Creatinine [Mass/volume] in Serum or Plasma 0.88 mg/dL 0.60-1.35 Creatinine AKASH ([facility]) Glomerular filtration rate/1.73 sq M.pre dicted among blacks [Volume Rate/Area] in Serum, Plasma or Blood by Creatinine-based formula (CKD-EPI) 134 mL/min/1.73m2 > or = 60 eGFR AKASH ([facility]) Glomerular filtration rate/1.73 sq M.pre dicted among non-blacks [Volume Rate/Area] in Serum, Plasma or Blood by Creatinine-based formula (CKD-EPI) 115 mL/min/1.73m2 > or = 60 eGFR Non-afr. [place] AKASH ([facility]) Chloride [Moles/volume] in Serum or Plasma 102 mmol/L 98-110 Chloride AK[facility] ([facility]) Calcium [Mass/volume] in Serum or Plasma 9.7 mg/dL 8.6-10.3 Calcium [facility] ([facility]) Sodium [Moles/volume] in Serum or Plasma 138 mmol/L 135-146 [facility] Carbon dioxide, total [Moles/volume] in Serum or Plasma 28 mmol/L 20-32 Carbon Dioxide AKASH ([facility]) Potassium [Moles/volume] in Serum or Plasma 4.0 mmol/L 3.5-5.3 Potassium [facility] ([facility]) Albumin/Globulin [Mass Ratio] in Serum or Plasma 1.5 (calc) 1.0-2 .5 Albumin/globulin Ratio [place] ([facility]) Albumin [Mass/volume] in Serum or Plasma 4.4 g/dL 3.6-5.1 Albumin [place] ([facility]) Globulin [Mass/volume] in Serum by calculation 3.0 g/dL_(calc) 1.9- 3.7 Globulin [place] ([facility]) Protein [Mass/volume] in Serum or Plasma 7.4 g/dL 6.1-8.1 Protein, Total [place] ([facility]) Aspartate aminotransferase [Enzymatic activity/volume] in Serum or Plasma 27 U/L 10-40 Ast [place] ([facility]) Bilirubin.total [Mass/volume] in Serum or Plasma 0.7 mg/dL 0.2-1 .2 Bilirubin, Total [place] ([facility]) Alkaline phosphatase [Enzymatic activity/volume] in Serum or Plasma 51 U/L 36-130 Alkaline Phosphatase [place] ([facility]) Alanine aminotransferase [Enzymatic activity/volume] in Seru m or Plasma 40 U/L 9-46 Alt [place] ([facility]) ID Date Data Source [id number] 03/09/2021 12:00:00 AM EDT [place] ([facility]) Name Value Range Interpretation Code Description Data Serena rce(s) Supporting Document(s) HIV 1+2 Ab+HIV1 p24 Ag [Presence] in Serum or Plasma b y Immunoassay non-reactive non-reactive HIV Ag/Ab, 4TH Gen [place] ([facility]) ID Date Data Source [id number] 03/09/2021 12:00:00 AM EDT [facility]) Name Value Range Interpretation Code Description Data Serena rce(s) Supporting Document(s) Hepatitis C virus Ab [Presence] in Serum or Plasma by Immuno assay non-reactive non-reactive Hepatitis C Antibody [place] ([facility]) Hepatitis A virus IgM Ab [Presence] in Serum or Plasma by Immunoassay non-reactive non-reactive Hepatitis a IgM [facility] ([facility]) Hepatitis B virus surface Ag [Presence] in Serum or Pl asma by Immunoassay non-reactive non-reactive Hepatitis B Surface Antigen ATHE NA ([facility]) Hepatitis B virus core IgM Ab [Presence] in Serum or P lasma by Immunoassay non-reactive non-reactive Hepatitis B Core Antibody (IgM) AKASH ([facility]) Hepatitis C virus Ab Signal/Cutoff in Serum or Plasma by Immunoassa y <1.00 Index [facility]ASH ([facility]) ID Date Data Source [id number] 03/09/2021 12:00[facility] Name Value Range Interpretation Code Description Data Serena rce(s) Supporting Document(s) Cholesterol in HDL [Mass/volume] in Serum or Plasma 50 mg/dL > or = 40 HDL Cholesterol [facility] ([facility]) Triglyceride [Mass/volume] in Serum or Plasma 179 mg/dL <150 Above high normal Triglycerides AKASH ([facility]) Cholesterol [Mass/volume] in Serum or Plasma 230 mg/dL <200 Above high normal Cholesterol, Total [facility] ([facility]) Cholesterol.total/Cholesterol in HDL [Mass Ratio] in Serum o r Plasma 4.6 (calc) <5.0 Chol/hdlc Ratio AKASH ([facility]) Cholesterol in LDL [Mass/volume] in Serum or Plasma by calculation 149 mg/dL_(calc) Above high normal LDL-cholesterol AKASH ([facility]) Cholesterol non HDL [Mass/volume] in Serum or Plasma 180 mg/dL_( calc) <130 Above high normal Non HDL Cholesterol [facility]ASH ([facility]) ID Date Data Source [id number] 03/09/2021 12:00:00 AM EDT [facility]) Name Value Range Interpretation Code Description Data Serena rce(s) Supporting Document(s) Reagin Ab [Presence] in Serum by RPR non-reactive non-reactive RPR (DX) W/refl Titer and Confirmatory Testing [facility] ([facility]) ID Date Data Source [id number] 03/09/2021 12:00:00 AM EDT [facility]) Name Value Range Interpretation Code Description Data Sernea rce(s) Supporting Document(s) Hemoglobin A1c/Hemoglobin.total in Blood 4.9 %_of_total_HGB <5.7 Hemoglobin a1C [facility]) ID Date Data Source [id number] 03/09/2021 12:00:00 AM EDT [facility]) Name Value Range Interpretation Code Description Data Serena rce(s) Supporting Document(s) Calcidiol [Mass/volume] in Serum or Plasma 12 NG/mL 30-100 Below low normal Vitamin D,25-Oh,total,ia [facility]) ID Date Data Source [id number] 03/09/2021 12:00:00 AM EDT [facility]) Name Value Range Interpretation Code Description Data Serena rce(s) Supporting Document(s) Thyrotropin [Units/volume] in Serum or Plasma 1.43 mIU/L 0.40-4.50 Tsh [facility]) ID Date Data Source [id number] 03/09/2021 12:00:00 AM EDT [facility]) Name Value Range Interpretation Code Description Data Serena rce(s) Supporting Document(s) Glucose [Mass/volume] in Serum or Plasma 98 mg/dL 65-99 Glucose [facility] ([facility]) Urea nitrogen [Mass/volume] in Serum or Plasma 13 mg/dL 7-25 Urea Nitrogen (BUN) AKASH ([facility]) Creatinine [Mass/volume] in Serum or Plasma 0.88 mg/dL 0.60-1.35 Creatinine [facility] ([facility]) Glomerular filtration rate/1.73 sq M.pre dicted among non-blacks [Volume Rate/Area] in Serum, Plasma or Blood by Creatinine-based formula (CKD-EPI) 115 mL/min/1.73m2 > or = 60 eGFR Non-afr. [place] AKASH ([facility]) Sodium [Moles/volume] in Serum or Plasma 138 mmol/L 135-146 Sodium [facility]ASH ([facility]) Glomerular filtration rate/1.73 sq M.pre dicted among blacks [Volume Rate/Area] in Serum, Plasma or Blood by Creatinine-based formula (CKD-EPI) 134 mL/min/1.73m2 > or = 60 eGFR AKASH ([facility]) Urea nitrogen/Creatinine [Mass Ratio] in Serum or Plasma not applic able 6-22 BUN/creatinine Ratio [facility]ASH ([facility]) Potassium [Moles/volume] in Serum or Plasma 4.0 mmol/L 3.5-5.3 Potassium [facility] ([facility]) Carbon dioxide, total [Moles/volume] in Serum or Plasma 28 mmol/L 20-32 Carbon Dioxide [facility] ([facility]) Calcium [Mass/volume] in Serum or Plasma 9.7 mg/dL 8.6-10.3 Calcium [facility] ([facility]) Chloride [Moles/volume] in Serum or Plasma 102 mmol/L 98-110 Chloride [facility] ([facility]) Globulin [Mass/volume] in Serum by calculation 3.0 g/dL_(calc) 1.9- 3.7 Globulin [facility] ([facility]) Albumin/Globulin [Mass Ratio] in Serum or Plasma 1.5 (calc) 1.0-2 .5 Albumin/globulin Ratio [facility] ([facility]) Protein [Mass/volume] in Serum or Plasma 7.4 g/dL 6.1-8.1 Protein, Total [facility] ([facility]) Albumin [Mass/volume] in Serum or Plasma 4.4 g/dL 3.6-5.1 Albumin [facility] ([facility]) Aspartate aminotransferase [Enzymatic activity/volume] in Serum or Plasma 27 U/L 10-40 Ast [facility] ([facility]) Alkaline phosphatase [Enzymatic activity/volume] in Serum or Plasma 51 U/L 36-130 Alkaline Phosphatase [facility] ([facility]) Alanine aminotransferase [Enzymatic activity/volume] in Seru m or Plasma 40 U/L 9-46 Alt [facility] ([facility]) Bilirubin.total [Mass/volume] in Serum or Plasma 0.7 mg/dL 0.2-1 .2 Bilirubin, Total [facility] ([facility]) ID Date Data Source [id number] 03/09/2021 12:00:00 AM EDT [facility] ([facility]) Name Value Range Interpretation Code Description Data Serena rce(s) Supporting Document(s) HIV 1+2 Ab+HIV1 p24 Ag [Presence] in Serum or Plasma b y Immunoassay non-reactive non-reactive HIV Ag/Ab, 4TH Gen [facility] ([facility]) ID Date Data Source [id number] 03/09/2021 12:00:00 AM EDT [place] ([facility]) Name Value Range Interpretation Code Description Data Serena rce(s) Supporting Document(s) Hepatitis A virus IgM Ab [Presence] in Serum or Plasma by Immunoassay non-reactive non-reactive Hepatitis a IgM [facility] ([facility]) Hepatitis B virus surface Ag [Presence] in Serum or Pl asma by Immunoassay non-reactive non-reactive [facility] Hepatitis B virus core IgM Ab [Presence] in Serum or P lasma by Immunoassay non-reactive non-reactive Hepatitis B Core Antibody (IgM) [facility] ([facility]) Hepatitis C virus Ab [Presence] in Serum or Plasma by Immuno assay non-reactive non-reactive Hepatitis C Antibody [facility] ([facility]) Hepatitis C virus Ab Signal/Cutoff in Serum or Plasma by Immunoassa y <1.00 Index [facility] ([facility]) ID Date Data Source [id number] 03/09/2021 12:00:00 AM EDT [facility]) Name Value Range Interpretation Code Description Data Serena rce(s) Supporting Document(s) Cholesterol [Mass/volume] in Serum or Plasma 230 mg/dL <200 Above high normal Cholesterol, Total AKASH ([facility]) Cholesterol in HDL [Mass/volume] in Serum or Plasma 50 mg/dL > or = 40 HDL Cholesterol [facility] ([facility]) Triglyceride [Mass/volume] in Serum or Plasma 179 mg/dL <150 Above high normal Triglycerides [facility] ([facility]) Cholesterol in LDL [Mass/volume] in Serum or Plasma by calculation 149 mg/dL_(calc) Above high normal LDL-cholesterol [facility] ([facility]) Cholesterol.total/Cholesterol in HDL [Mass Ratio] in Serum o r Plasma 4.6 (calc) <5.0 Chol/hdlc Ratio [facility] ([facility]) Cholesterol non HDL [Mass/volume] in Serum or Plasma 180 mg/dL_( calc) <130 Above high normal Non HDL Cholesterol [facility] ([facility]) ID Date Data Source [id number] 03/09/2021 12:00:00 AM EDT [facility]) Name Value Range Interpretation Code Description Data Serena rce(s) Supporting Document(s) Reagin Ab [Presence] in Serum by RPR non-reactive non-reactive RPR (DX) W/refl Titer and Confirmatory Testing [facility]) ID Date Data Source [id number] 03/09/2021 12:00:00 AM EDT [facility]) Name Value Range Interpretation Code Description Data Serena rce(s) Supporting Document(s) Hemoglobin A1c/Hemoglobin.total in Blood 4.9 %_of_total_HGB <5.7 [facility] ID Date Data Source [id number] 03/09/2021 12:00:00 AM EDT [facility]) Name Value Range Interpretation Code Description Data Serena rce(s) Supporting Document(s) Calcidiol [Mass/volume] in Serum or Plasma 12 NG/mL 30-100 Below low normal Vitamin D,25-Oh,total,ia [place] ([facility]) ID Date Data Source [id number] 03/09/2021 12:00:00 AM EDT [facility]) Name Value Range Interpretation Code Description Data Serena rce(s) Supporting Document(s) Thyrotropin [Units/volume] in Serum or Plasma 1.43 mIU/L 0.40-4.50 Tsh [facility]) ID Date Data Source [id number] 03/09/2021 12:00:00 AM EDT [facility]) Name Value Range Interpretation Code Description Data Serena rce(s) Supporting Document(s) Glucose [Mass/volume] in Serum or Plasma 98 mg/dL 65-99 Glucose [facility]) Glomerular filtration rate/1.73 sq M.pre dicted among non-blacks [Volume Rate/Area] in Serum, Plasma or Blood by Creatinine-based formula (CKD-EPI) 115 mL/min/1.73m2 > or = 60 eGFR Non-afr. [place] AKASH ([facility]) Urea nitrogen [Mass/volume] in Serum or Plasma 13 mg/dL 7-25 Urea Nitrogen (BUN) [facility]) Creatinine [Mass/volume] in Serum or Plasma 0.88 mg/dL 0.60-1.35 Creatinine [facility] ([facility]) Potassium [Moles/volume] in Serum or Plasma 4.0 mmol/L 3.5-5.3 Potassium [place] ([facility]) Urea nitrogen/Creatinine [Mass Ratio] in Serum or Plasma not applic able 6-22 BUN/creatinine Ratio [facility] ([facility]) Sodium [Moles/volume] in Serum or Plasma 138 mmol/L 135-146 [facility] Chloride [Moles/volume] in Serum or Plasma 102 mmol/L 98-110 Chloride [facility]) Glomerular filtration rate/1.73 sq M.pre dicted among blacks [Volume Rate/Area] in Serum, Plasma or Blood by Creatinine-based formula (CKD-EPI) 134 mL/min/1.73m2 > or = 60 eGFR [facility] ([facility]) Carbon dioxide, total [Moles/volume] in Serum or Plasma 28 mmol/L 20-32 Carbon Dioxide [place] ([facility]) Albumin [Mass/volume] in Serum or Plasma 4.4 g/dL 3.6-5.1 Albumin [place] ([facility]) Protein [Mass/volume] in Serum or Plasma 7.4 g/dL 6.1-8.1 Protein, Total [place] ([facility]) Calcium [Mass/volume] in Serum or Plasma 9.7 mg/dL 8.6-10.3 Calcium [place] ([facility]) Alkaline phosphatase [Enzymatic activity/volume] in Serum or Plasma 51 U/L 36-130 Alkaline Phosphatase [place] ([facility]) Globulin [Mass/volume] in Serum by calculation 3.0 g/dL_(calc) 1.9- 3.7 Globulin [place] ([facility]) Bilirubin.total [Mass/volume] in Serum or Plasma 0.7 mg/dL 0.2-1 .2 Bilirubin, Total [place] ([facility]) Albumin/Globulin [Mass Ratio] in Serum or Plasma 1.5 (calc) 1.0-2 .5 Albumin/globulin Ratio [place] ([facility]) Aspartate aminotransferase [Enzymatic activity/volume] in Serum or Plasma 27 U/L 10-40 Ast [place] ([facility]) Alanine aminotransferase [Enzymatic activity/volume] in Seru m or Plasma 40 U/L 9-46 Alt [place] ([facility]) ID Date Data Source [id number] 03/09/2021 12:00:00 AM EDT [place] ([facility]) Name Value Range Interpretation Code Description Data Serena rce(s) Supporting Document(s) HIV 1+2 Ab+HIV1 p24 Ag [Presence] in Serum or Plasma b y Immunoassay non-reactive non-reactive HIV Ag/Ab, 4TH Gen [facility]) ID Date Data Source [id number] 03/09/2021 12:00:00 AM EDT [facility] ([facility]) Name Value Range Interpretation Code Description Data Serena rce(s) Supporting Document(s) Hepatitis A virus IgM Ab [Presence] in Serum or Plasma by Immunoassay non-reactive non-reactive Hepatitis a IgM [facility] ([facility]) Hepatitis B virus core IgM Ab [Presence] in Serum or P lasma by Immunoassay non-reactive non-reactive Hepatitis B Core Antibody (IgM) [facility] ([facility]) Hepatitis B virus surface Ag [Presence] in Serum or Pl asma by Immunoassay non-reactive non-reactive Hepatitis B Surface Antigen ATHE NA ([facility]) Hepatitis C virus Ab [Presence] in Serum or Plasma by Immuno assay non-reactive non-reactive Hepatitis C Antibody [facility] ([facility]) Hepatitis C virus Ab Signal/Cutoff in Serum or Plasma by Immunoassa y <1.00 Index [facility] ([facility]) ID Date Data Source [id number] 03/09/2021 12:00:00 AM EDT [facility] ([facility]) Name Value Range Interpretation Code Description Data Serena rce(s) Supporting Document(s) Cholesterol [Mass/volume] in Serum or Plasma 230 mg/dL <200 Above high normal Cholesterol, Total [facility] ([facility]) Cholesterol in HDL [Mass/volume] in Serum or Plasma 50 mg/dL > or = 40 HDL Cholesterol [facility] ([facility]) Triglyceride [Mass/volume] in Serum or Plasma 179 mg/dL <150 Above high normal Triglycerides [facility] ([facility]) Cholesterol.total/Cholesterol in HDL [Mass Ratio] in Serum o r Plasma 4.6 (calc) <5.0 Chol/hdlc Ratio [facility] ([facility]) Cholesterol in LDL [Mass/volume] in Serum or Plasma by calculation 149 mg/dL_(calc) Above high normal LDL-cholesterol [facility] ([facility]) Cholesterol non HDL [Mass/volume] in Serum or Plasma 180 mg/dL_( calc) <130 Above high normal Non HDL Cholesterol [facility] ([facility]) ID Date Data Source [id number] 10/22/2020 12:00:00 AM EST [facility] Name Value Range Interpretation Code Description Data Serena rce(s) Supporting Document(s) [facility]2 Rapid Antigen [facility] and reported by [facility] Procedure Social History No Information Vital Signs ID Date Data Source [id number] Name Value Range Interpretation Code Description Data Source(s) Diastolic blood pressure 75 mm[Hg] 75 mm[Hg] [facility] ([facility]) Body height 65 [in_i] 65 [in_i] AK[facility] ([facility]) Body mass index (BMI) [Ratio] 38.7 kg/m2 38.7 k g/m2 AKASH ([facility]) Systolic blood pressure 110 mm[Hg] 110 mm[Hg] A [facility] ([facility]) Body weight 3718 [oz_av] 3718 [oz_av] AKASH ([facility]) Diastolic blood pressure 75 mm[Hg] 75 mm[Hg] [facility] ([facility]) Body height 65 [in_i] 65 [in_i] [facility] ([facility]) Body mass index (BMI) [Ratio] 38.7 kg/m2 38.7 k g/m2 [facility] ([facility]) Systolic blood pressure 110 mm[Hg] 110 mm[Hg] A [facility] ([facility]) Body weight 3718 [oz_av] 3718 [oz_av] AKASH ([facility]) Diastolic blood pressure 78 mm[Hg] 78 mm[Hg] [facility] ([facility]) Body height 65 [in_i] 65 [in_i] [facility] ([facility]) Body mass index (BMI) [Ratio] 39 kg/m2 39 kg/ m2 [facility] ([facility]) Systolic blood pressure 117 mm[Hg] 117 mm[Hg] A [facility] ([facility]) Body weight 3748 [oz_av] 3748 [oz_av] AKASH ([facility]) Diastolic blood pressure 78 mm[Hg] 78 mm[Hg] [facility] ([facility]) Body height 65 [in_i] 65 [in_i] [facility] ([facility]) Body mass index (BMI) [Ratio] 39 kg/m2 39 kg/ m2 [facility] ([facility]) Systolic blood pressure 117 mm[Hg] 117 mm[Hg] A [place] ([facility]) Body weight 3748 [oz_av] 3748 [oz_av] AKASH ([facility]) Diastolic blood pressure 78 mm[Hg] 78 mm[Hg] [facility] ([facility]) Body height 65 [in_i] 65 [in_i] AKASH ([facility]) Body mass index (BMI) [Ratio] 39 kg/m2 39 kg/ m2 AKASH ([facility]) Systolic blood pressure 117 mm[Hg] 117 mm[Hg] A DIMAA ([facility]) Body weight 3748 [oz_av] 3748 [oz_av] AKASH ([facility]) Diastolic blood pressure 78 mm[Hg] 78 mm[Hg] AKASH ([facility]) Body height 65 [in_i] 65 [in_i] AKASH ([facility]) Body mass index (BMI) [Ratio] 39.5 kg/m2 39.5 k g/m2 AKASH ([facility]) Systolic blood pressure 112 mm[Hg] 112 mm[Hg] A THENA ([facility]) Body weight 3794 [oz_av] 3794 [oz_av] AKASH ([facility]) Diastolic blood pressure 78 mm[Hg] 78 mm[Hg] AKAHS ([facility]) Body height 65 [in_i] 65 [in_i] AKASH ([facility]) Body mass index (BMI) [Ratio] 39.5 kg/m2 39.5 k g/m2 AKASH ([facility]) Systolic blood pressure 112 mm[Hg] 112 mm[Hg] A THENA ([facility]) Body weight 3794 [oz_av] 3794 [oz_av] AKASH ([facility]) Diastolic blood pressure 78 mm[Hg] 78 mm[Hg] AKASH ([facility]) Body height 65 [in_i] 65 [in_i] AKASH ([facility]) Body mass index (BMI) [Ratio] 39.5 kg/m2 39.5 k g/m2 AKASH ([facility]) Systolic blood pressure 112 mm[Hg] 112 mm[Hg] A THENA ([facility]) Body weight 3794 [oz_av] 3794 [oz_av] AKASH ([facility]) Diastolic blood pressure 78 mm[Hg] 78 mm[Hg] AKASH ([facility]) Body height 65 [in_i] 65 [in_i] AKASH ([facility]) Body mass index (BMI) [Ratio] 39.5 kg/m2 39.5 k g/m2 AKASH ([facility]) Systolic blood pressure 112 mm[Hg] 112 mm[Hg] A DIMAA ([facility]) Body weight 3794 [oz_av] 3794 [oz_av] AKASH ([facility]) Diastolic blood pressure 78 mm[Hg] 78 mm[Hg] AKASH ([facility]) Body height 65 [in_i] 65 [in_i] AKASH ([facility]) Body mass index (BMI) [Ratio] 39.5 kg/m2 39.5 k g/m2 AKASH ([facility]) Systolic blood pressure 112 mm[Hg] 112 mm[Hg] A THENA ([facility]) Body weight 3794 [oz_av] 3794 [oz_av] AKASH ([facility]) Diastolic blood pressure 78 mm[Hg] 78 mm[Hg] AKASH ([facility]) Body height 65 [in_i] 65 [in_i] AKASH ([facility]) Body mass index (BMI) [Ratio] 39.5 kg/m2 39.5 k g/m2 AKASH ([facility]) Systolic blood pressure 112 mm[Hg] 112 mm[Hg] A THENA ([facility]) Body weight 3794 [oz_av] 3794 [oz_av] AKASH ([facility]) Diastolic blood pressure 78 mm[Hg] 78 mm[Hg] AKASH ([facility]) Body height 65 [in_i] 65 [in_i] AKASH ([facility]) Body mass index (BMI) [Ratio] 39.5 kg/m2 39.5 k g/m2 AKASH ([facility]) Systolic blood pressure 112 mm[Hg] 112 mm[Hg] A DIMAA ([facility]) Body weight 3794 [oz_av] 3794 [oz_av] AKASH ([facility]) Diastolic blood pressure 78 mm[Hg] 78 mm[Hg] AKASH ([facility]) Body height 65 [in_i] 65 [in_i] AKASH ([facility]) Body mass index (BMI) [Ratio] 39.5 kg/m2 39.5 k g/m2 AKASH ([facility]) Systolic blood pressure 112 mm[Hg] 112 mm[Hg] A DIMAA ([facility]) Body weight 3794 [oz_av] 3794 [oz_av] AKASH ([facility]) Diastolic blood pressure 78 mm[Hg] 78 mm[Hg] AKASH ([facility]) Body height 65 [in_i] 65 [in_i] AKASH ([facility]) Body mass index (BMI) [Ratio] 39.5 kg/m2 39.5 k g/m2 AKASH ([facility]) Systolic blood pressure 112 mm[Hg] 112 mm[Hg] A DIMAA ([facility]) Body weight 3794 [oz_av] 3794 [oz_av] AKASH ([facility]) Diastolic blood pressure 73 mm[Hg] 73 mm[Hg] AKASH ([facility]) Body height 65 [in_i] 65 [in_i] AKASH ([facility]) Body mass index (BMI) [Ratio] 38.9 kg/m2 38.9 k g/m2 AKASH ([facility]) Systolic blood pressure 107 mm[Hg] 107 mm[Hg] A THENA ([facility]) Body weight 3737.6 [oz_av] 3737.6 [oz_av] ATHEN A ([facility]) Diastolic blood pressure 73 mm[Hg] 73 mm[Hg] AKASH ([facility]) Body height 65 [in_i] 65 [in_i] AKASH ([facility]) Body mass index (BMI) [Ratio] 38.9 kg/m2 38.9 k g/m2 AKASH ([facility]) Systolic blood pressure 107 mm[Hg] 107 mm[Hg] A DIMAA ([facility]) Body weight 3737.6 [oz_av] 3737.6 [oz_av] ATHEN A ([facility]) Diastolic blood pressure 73 mm[Hg] 73 mm[Hg] AKASH ([facility]) Body height 65 [in_i] 65 [in_i] AKASH ([facility]) Body mass index (BMI) [Ratio] 38.9 kg/m2 38.9 k g/m2 AKASH ([facility]) Systolic blood pressure 107 mm[Hg] 107 mm[Hg] [facility] Body weight 3737.6 [oz_av] 3737.6 [oz_av] ATHEN A ([facility]) Diastolic blood pressure 73 mm[Hg] 73 mm[Hg] AKASH ([facility]) Body height 65 [in_i] 65 [in_i] AKASH ([facility]) Body mass index (BMI) [Ratio] 38.9 kg/m2 38.9 k g/m2 AKASH ([facility]) Systolic blood pressure 107 mm[Hg] 107 mm[Hg] A TITI ([facility]) Body weight 3737.6 [oz_av] 3737.6 [oz_av] ATHEN A ([facility]) Diastolic blood pressure 73 mm[Hg] 73 mm[Hg] AKASH ([facility]) Body height 65 [in_i] 65 [in_i] AKASH ([facility]) Body mass index (BMI) [Ratio] 38.9 kg/m2 38.9 k g/m2 AKASH ([facility]) Systolic blood pressure 107 mm[Hg] 107 mm[facility]Hg] [facility] Body weight 3737.6 [oz_av] 3737.6 [oz_av] ATHEN A ([facility]) Diastolic blood pressure 73 mm[Hg] 73 mm[Hg] AKASH ([facility]) Body height 65 [in_i] 65 [in_i] AKASH ([facility]) Body mass index (BMI) [Ratio] 38.9 kg/m2 38.9 k g/m2 AKASH ([facility]) Systolic blood pressure 107 mm[Hg] 107 mm[Hg] A DIMAA ([facility]) Body weight 3737.6 [oz_av] 3737.6 [oz_av] ATHEN A ([facility]) Diastolic blood pressure 73 mm[Hg] 73 mm[Hg] AKASH ([facility]) Body height 65 [in_i] 65 [in_i] AKASH ([facility]) Body mass index (BMI) [Ratio] 38.9 kg/m2 38.9 k g/m2 AKASH ([facility]) Systolic blood pressure 107 mm[Hg] 107 mm[Hg] [facility] Body weight 3737.6 [oz_av] 3737.6 [oz_av] ATHEN A ([facility]) Diastolic blood pressure 73 mm[Hg] 73 mm[Hg] AKASH ([facility]) Body height 65 [in_i] 65 [in_i] AKASH ([facility]) Body mass index (BMI) [Ratio] 38.9 kg/m2 38.9 k g/m2 AKASH ([facility]) Systolic blood pressure 107 mm[Hg] 107 mm[Hg] A DIMAA ([facility]) Body weight 3737.6 [oz_av] 3737.6 [oz_av] ATHEN A ([facility]) Diastolic blood pressure 73 mm[Hg] 73 mm[Hg] AKASH ([facility]) Body height 65 [in_i] 65 [in_i] AKASH ([facility]) Body mass index (BMI) [Ratio] 38.9 kg/m2 38.9 k g/m2 AKASH ([facility]) Systolic blood pressure 107 mm[Hg] 107 mm[Hg] [facility] Body weight 3737.6 [oz_av] 3737.6 [oz_av] ATHEN A ([facility]) Diastolic blood pressure 73 mm[Hg] 73 mm[Hg] AKASH ([facility]) Body height 65 [in_i] 65 [in_i] AKASH ([facility]) Body mass index (BMI) [Ratio] 38.9 kg/m2 38.9 k g/m2 AKASH ([facility]) Systolic blood pressure 107 mm[Hg] 107 mm[Hg] A THENA ([facility]) Body weight 3737.6 [oz_av] 3737.6 [oz_av] ATHEN A ([facility]) Body height 65 [in_i] 65 [in_i] AKASH ([facility]) Body height 65 [in_i] 65 [in_i] AKASH ([facility]) Body height 65 [in_i] 65 [in_i] AKASH ([facility]) Body height 65 [in_i] 65 [in_i] AKASH ([facility]) Body height 65 [in_i] 65 [in_i] AKASH ([facility]) Body height 65 [in_i] 65 [in_i] AKASH ([facility]) Body height 65 [in_i] 65 [in_i] AKASH ([facility]) Body height 65 [in_i] 65 [in_i] AKASH ([facility]) Body height 65 [in_i] 65 [in_i] AKASH ([facility]) Body height 65 [in_i] 65 [in_i] AKASH ([facility]) Diastolic blood pressure 82 mm[Hg] 82 mm[Hg] AKASH ([facility]) Body height 65 [in_i] 65 [in_i] AKASH ([facility]) Body mass index (BMI) [Ratio] 38.8 kg/m2 38.8 k g/m2 AKASH ([facility]) Systolic blood pressure 123 mm[Hg] 123 mm[Hg] A THENA ([facility]) Body weight 3731.2 [oz_av] 3731.2 [oz_av] ATHEN A ([facility]) Diastolic blood pressure 82 mm[Hg] 82 mm[Hg] AKASH ([facility]) Body height 65 [in_i] 65 [in_i] AKASH ([facility]) Body mass index (BMI) [Ratio] 38.8 kg/m2 38.8 k g/m2 AKASH ([facility]) Systolic blood pressure 123 mm[Hg] 123 mm[Hg] [facility] Body weight 3731.2 [oz_av] 3731.2 [oz_av] ATHEN A ([facility]) Diastolic blood pressure 82 mm[Hg] 82 mm[Hg] AKASH ([facility]) Body height 65 [in_i] 65 [in_i] AKSAH ([facility]) Body mass index (BMI) [Ratio] 38.8 kg/m2 38.8 k g/m2 AKASH ([facility]) Systolic blood pressure 123 mm[Hg] 123 mm[Hg] [facility] Body weight 3731.2 [oz_av] 3731.2 [oz_av] ATHEN A ([facility]) Diastolic blood pressure 82 mm[Hg] 82 mm[Hg] AKASH ([facility]) Body height 65 [in_i] 65 [in_i] AKASH ([facility]) Body mass index (BMI) [Ratio] 38.8 kg/m2 38.8 k g/m2 AKASH ([facility]) Systolic blood pressure 123 mm[Hg] 123 mm[Hg] A THENA ([facility]) Body weight 3731.2 [oz_av] 3731.2 [oz_av] ATHEN A ([facility]) Diastolic blood pressure 82 mm[Hg] 82 mm[Hg] AKASH ([facility]) Body height 65 [in_i] 65 [in_i] AKASH ([facility]) Body mass index (BMI) [Ratio] 38.8 kg/m2 38.8 k g/m2 AKASH ([facility]) Systolic blood pressure 123 mm[Hg] 123 mm[Hg] A THENA ([facility]) Body weight 3731.2 [oz_av] 3731.2 [oz_av] ATHEN A ([facility]) Diastolic blood pressure 82 mm[Hg] 82 mm[Hg] AKASH ([facility]) Body height 65 [in_i] 65 [in_i] AKASH ([facility]) Body mass index (BMI) [Ratio] 38.8 kg/m2 38.8 k g/m2 AKASH ([facility]) Systolic blood pressure 123 mm[Hg] 123 mm[Hg] A THENA ([facility]) Body weight 3731.2 [oz_av] 3731.2 [oz_av] ATHEN A ([facility]) Diastolic blood pressure 82 mm[Hg] 82 mm[Hg] AKASH ([facility]) Body height 65 [in_i] 65 [in_i] AKASH ([facility]) Body mass index (BMI) [Ratio] 38.8 kg/m2 38.8 k g/m2 AKASH ([facility]) Systolic blood pressure 123 mm[Hg] 123 mm[Hg] [facility] Body weight 3731.2 [oz_av] 3731.2 [oz_av] ATHEN A ([facility]) Diastolic blood pressure 82 mm[Hg] 82 mm[Hg] AKASH ([facility]) Body height 65 [in_i] 65 [in_i] AKASH ([facility]) Body mass index (BMI) [Ratio] 38.8 kg/m2 38.8 k g/m2 AKASH ([facility]) Systolic blood pressure 123 mm[Hg] 123 mm[Hg] A THENA ([facility]) Body weight 3731.2 [oz_av] 3731.2 [oz_av] ATHEN A ([facility]) Diastolic blood pressure 82 mm[Hg] 82 mm[Hg] AKASH ([facility]) Body height 65 [in_i] 65 [in_i] AKASH ([facility]) Body mass index (BMI) [Ratio] 38.8 kg/m2 38.8 k g/m2 AKASH ([facility]) Systolic blood pressure 123 mm[Hg] 123 mm[Hg] [facility] Body weight 3731.2 [oz_av] 3731.2 [oz_av] ATHEN A ([facility]) Diastolic blood pressure 82 mm[Hg] 82 mm[Hg] AKASH ([facility]) Body height 65 [in_i] 65 [in_i] AKASH ([facility]) Body mass index (BMI) [Ratio] 38.8 kg/m2 38.8 k g/m2 AKASH ([facility]) Systolic blood pressure 123 mm[Hg] 123 mm[Hg] A DIMAA ([facility]) Body weight 3731.2 [oz_av] 3731.2 [oz_av] ATHEN A ([facility]) Diastolic blood pressure 82 mm[Hg] 82 mm[Hg] AKASH ([facility]) Body height 65 [in_i] 65 [in_i] AKASH ([facility]) Body mass index (BMI) [Ratio] 38.8 kg/m2 38.8 k g/m2 AKASH ([facility]) Systolic blood pressure 123 mm[Hg] 123 mm[Hg] A DIMAA ([facility]) Body weight 3731.2 [oz_av] 3731.2 [oz_av] ATHEN A ([facility]) Patient Treatment Plan of Care Planned Activity Planned Date Details Description Data Source (s) zonisamide 25 MG Oral Capsule AKASH ([facility]) b2 100mg tab TAKE 4 TABLETS BY MOUTH ONCE DAILY AKASH ([facility]) Amoxicillin 875 MG / Clavulanate 125 MG Oral Tablet [Augmentin] AKASH ([facility]) zonisamide 25 MG Oral Capsule AKASH ([facility]) b2 100mg tab TAKE 4 TABLETS BY MOUTH ONCE DAILY AKASH ([facility]) Amoxicillin 875 MG / Clavulanate 125 MG Oral Tablet [Augmentin] AKASH ([facility]) Amoxicillin 875 MG / Clavulanate 125 MG Oral Tablet [Augmentin] AKASH ([facility]) Amoxicillin 875 MG / Clavulanate 125 MG Oral Tablet [Augmentin] AKASH ([facility]) Amoxicillin 875 MG / Clavulanate 125 MG Oral Tablet [Augmentin] AKASH ([facility]) Amoxicillin 875 MG / Clavulanate 125 MG Oral Tablet [Augmentin] AKASH ([facility]) Amoxicillin 875 MG / Clavulanate 125 MG Oral Tablet [Augmentin] AKASH ([facility]) Amoxicillin 875 MG / Clavulanate 125 MG Oral Tablet [Augmentin] AKASH ([facility]) Amoxicillin 875 MG / Clavulanate 125 MG Oral Tablet [Augmentin] AKASH ([facility])
== END 2021-09-08 21:40 | disposition left against medical advice (07) ==
LOC: M ED 21:37
DX: Z53.29 Procedure and treatment not carried out because of patient's decision for other reasons (principal)

== ENCOUNTER 2021-10-09 11:40 | Emergency (ER) | payer BC ==
[~2021-10-09] VITALS: Ht 167.6 cm; Wt 104.5 kg
[2021-10-09 12:31] LABS: BASO % 0.7 % (0.0-1.0); EOS # 0.2 10^3/uL (0.0-0.5); EOS % 3.6 % (0.0-3.0); HEMATOCRIT 47.9 % (42.0-52.0); HEMOGLOBIN 16.2 g/dl (13.5-17.5); LYMPH # 1.5 10^3/uL (1.5-5.0); LYMPH % 27.1 % (24.0-44.0); MEAN CORPUSCULAR HEMOGLOBIN 29.9 pg (27.0-33.0); MEAN CORPUSCULAR HGB CONC 33.8 g/dl (32.0-36.5); MEAN CORPUSCULAR VOLUME 88.5 fl (80.0-96.0); MONO # 0.4 10^3/uL (0.0-0.8); MONO % 6.6 % (2.0-8.0); NEUTROPHILS # 3.5 10^3/uL (1.5-8.5); NEUTROPHILS % 61.8 % (36.0-66.0); PLATELET COUNT, AUTOMATED 249 10^3/uL (150-450); RED BLOOD COUNT 5.41 10^6/uL (4.30-6.10); WHITE BLOOD COUNT 5.6 10^3/uL (4.0-10.0)
[2021-10-09] MEDS ORDERED: MAGN1CAP PO (12:53)
[2021-10-09] MEDS ORDERED: B-2100TA PO (12:53)
[2021-10-09 12:59] LABS: CK-MB VALUE MASS < 1.0 NG/ML (<3.6); CPK CREATINE PHOSPHOKINASE 122 U/L (39-308); MB/CK RELATIVE INDEX 0.82 (< OR =4)
[2021-10-09 13:06] LABS: ALT/SGPT 46 U/L (12-78); BILIRUBIN,DIRECT 0.2 MG/DL (0.0-0.2); BILIRUBIN,TOTAL 0.9 MG/DL (0.2-1.0); BLOOD UREA NITROGEN 10 MG/DL (7-18); CALCIUM LEVEL 9.2 MG/DL (8.5-10.1); CARBON DIOXIDE LEVEL 30 MEQ/L (21-32); CHLORIDE LEVEL 105 MEQ/L (98-107); CREATININE FOR GFR 0.95 MG/DL (0.70-1.30); GLOMERULAR FILTRATION RATE > 60.0 (>60); GLUCOSE, FASTING 117 MG/DL (70-100); POTASSIUM SERUM 3.8 MEQ/L (3.5-5.1); SODIUM LEVEL 140 MEQ/L (136-145); TOTAL PROTEIN 7.6 GM/DL (6.4-8.2)
[2021-10-09 13:07] LABS: LIPASE 58 U/L (73-393); THYROID STIMULATING HORMONE 0.785 uIU/ML (0.358-3.740)
[2021-10-09 13:29] LABS: RSV AMPLIFICATION NEGATIVE (NEGATIVE)
[2021-10-09 15:17] VITALS: BP 108/69
== END 2021-10-09 15:30 | disposition home or self-care (01) ==
LOC: M ED 11:40
DX: R07.89 Other chest pain (principal); F41.9 Anxiety disorder, unspecified; F32.A Depression, unspecified; Z79.899 Other long term (current) drug therapy

== ENCOUNTER 2021-11-27 20:40 | Emergency (ER) | payer BC ==
[~2021-11-27] VITALS: Ht 167.6 cm; Wt 102.1 kg
[~2021-11-27 20:40] MED LIST changes: +B-2100TA PO; +MAGN1CAP PO
[2021-11-27] MEDS ORDERED: FAMO40TA3 PO (20:48)
[2021-11-27] MEDS ORDERED: SERT25TA85 PO (20:48)
[2021-11-27] MEDS ORDERED: GI COCKTAIL 50ML BTL(HYOSCYAMINE/MAALOX/LIDOCAINE VISCOUS)(1:3:1) PO ONE (22:35)
[2021-11-27 23:04] LABS: BASO # 0.1 10^3/uL (0.0-0.2); BASO % 0.6 % (0.0-1.0); EOS # 0.4 10^3/uL (0.0-0.5); EOS % 4.4 % (0.0-3.0); HEMATOCRIT 44.9 % (42.0-52.0); HEMOGLOBIN 15.1 g/dl (13.5-17.5); LYMPH # 2.6 10^3/uL (1.5-5.0); MEAN CORPUSCULAR HEMOGLOBIN 30.3 pg (27.0-33.0); MEAN CORPUSCULAR HGB CONC 33.6 g/dl (32.0-36.5); MONO # 0.8 10^3/uL (0.0-0.8); MONO % 9.9 % (2.0-8.0); NEUTROPHILS # 4.5 10^3/uL (1.5-8.5); PLATELET COUNT, AUTOMATED 246 10^3/uL (150-450); RED BLOOD COUNT 4.99 10^6/uL (4.30-6.10); WHITE BLOOD COUNT 8.4 10^3/uL (4.0-10.0)
[2021-11-27 23:23] LABS: CK-MB VALUE MASS < 1.0 NG/ML (<3.6); CPK CREATINE PHOSPHOKINASE 208 U/L (39-308); MB/CK RELATIVE INDEX 0.48 (< OR =4)
[2021-11-27 23:30] LABS: ALBUMIN 3.6 GM/DL (3.2-5.2); ALT/SGPT 47 U/L (12-78); BILIRUBIN,DIRECT 0.1 MG/DL (0.0-0.2); BILIRUBIN,TOTAL 0.4 MG/DL (0.2-1.0); BLOOD UREA NITROGEN 13 MG/DL (7-18); CALCIUM LEVEL 8.6 MG/DL (8.5-10.1); CARBON DIOXIDE LEVEL 27 MEQ/L (21-32); CHLORIDE LEVEL 108 MEQ/L (98-107); CREATININE FOR GFR 0.88 MG/DL (0.70-1.30); GLOMERULAR FILTRATION RATE > 60.0 (>60); GLUCOSE, FASTING 91 MG/DL (70-100); LIPASE 114 U/L (73-393); POTASSIUM SERUM 3.7 MEQ/L (3.5-5.1); SODIUM LEVEL 142 MEQ/L (136-145); TOTAL PROTEIN 7.1 GM/DL (6.4-8.2)
[2021-11-28] VITALS: BP 114/74
== END 2021-11-28 00:11 | disposition home or self-care (01) ==
LOC: M ED 20:40
DX: R07.9 Chest pain, unspecified (principal); K21.9 Gastro-esophageal reflux disease without esophagitis; F33.9 Major depressive disorder, recurrent, unspecified; F41.9 Anxiety disorder, unspecified; Z79.899 Other long term (current) drug therapy

== ENCOUNTER → 2022-03-03 | Outpatient (CLI) | payer BC ==
[~2022-03-03] MED LIST changes: +FAMO40TA3 PO; +OMEP-173 PO; +ONDA4TAB6 PO; +SERT25TA85 PO
== END ==
LOC: M RAD 16:28
PROVIDERS: ATTEND Physician Assistant
DX: J32.8 Other chronic sinusitis (principal)

== ENCOUNTER 2022-04-20 20:02 | Emergency (ER) | payer BC ==
[~2022-04-20] VITALS: Ht 167.6 cm; Wt 100.0 kg
[2022-04-20 22:15] LABS: BASO # 0.1 10^3/uL (0.0-0.2); BASO % 0.6 % (0.0-1.0); EOS # 0.2 10^3/uL (0.0-0.5); EOS % 2.5 % (0.0-3.0); HEMATOCRIT 46.7 % (42.0-52.0); LYMPH # 0.8 10^3/uL (1.5-5.0); LYMPH % 9.4 % (24.0-44.0); MEAN CORPUSCULAR HEMOGLOBIN 30.2 pg (27.0-33.0); MEAN CORPUSCULAR HGB CONC 34.3 g/dl (32.0-36.5); MEAN CORPUSCULAR VOLUME 88.3 fl (80.0-96.0); MONO # 0.6 10^3/uL (0.0-0.8); MONO % 7.5 % (2.0-8.0); NEUTROPHILS # 6.8 10^3/uL (1.5-8.5); NEUTROPHILS % 79.5 % (36.0-66.0); PLATELET COUNT, AUTOMATED 237 10^3/uL (150-450); RED BLOOD COUNT 5.29 10^6/uL (4.30-6.10); WHITE BLOOD COUNT 8.5 10^3/uL (4.0-10.0)
[2022-04-20 22:34] LABS: ALBUMIN 3.8 GM/DL (3.2-5.2); ALT/SGPT 50 U/L (12-78); BILIRUBIN,DIRECT 0.2 MG/DL (0.0-0.2); BILIRUBIN,TOTAL 1.1 MG/DL (0.2-1.0); BLOOD UREA NITROGEN 13 MG/DL (7-18); CALCIUM LEVEL 9.4 MG/DL (8.5-10.1); CARBON DIOXIDE LEVEL 26 MEQ/L (21-32); CHLORIDE LEVEL 107 MEQ/L (98-107); CREATININE FOR GFR 0.97 MG/DL (0.70-1.30); GLOMERULAR FILTRATION RATE > 60.0 (>60); GLUCOSE, FASTING 104 MG/DL (70-100); LIPASE 86 U/L (73-393); POTASSIUM SERUM 4.3 MEQ/L (3.5-5.1); SODIUM LEVEL 139 MEQ/L (136-145); TOTAL PROTEIN 7.4 GM/DL (6.4-8.2)
[2022-04-20 22:45] VITALS: BP 123/68
[2022-04-20] MEDS ORDERED: ONDA4TAB6 PO (23:55)
== END 2022-04-21 02:04 | disposition home or self-care (01) ==
LOC: EDBD 20:02 → M ED 20:02
DX: R11.2 Nausea with vomiting, unspecified (principal); R19.7 Diarrhea, unspecified; J45.909 Unspecified asthma, uncomplicated; F32.A Depression, unspecified; F41.9 Anxiety disorder, unspecified; G47.30 Sleep apnea, unspecified; Z79.899 Other long term (current) drug therapy

== ENCOUNTER → 2022-10-05 | Outpatient (REF) | payer BC | LOC: M LAB REF 17:26 | PROVIDERS: ATTEND Nurse Practitioner Family | DX: R68.89 Other general symptoms and signs (principal) ==

== ENCOUNTER → 2023-08-31 | Outpatient (REF) | payer OTHER | LOC: M LAB REF 17:09 | PROVIDERS: ATTEND Pediatrics | DX: J02.9 Acute pharyngitis, unspecified (principal) ==

== ENCOUNTER 2023-10-25 22:43 | Emergency (ER) | payer OTHER ==
[~2023-10-25] VITALS: Ht 167.6 cm; Wt 104.3 kg
[2023-10-25 22:44] VITALS: BP 135/88; TEMP 98.3; O2SAT 98
[2023-10-25 23:20] LABS: BASO % 0.6 % (0.0-1.0); EOS # 0.2 10^3/uL (0.0-0.5); EOS % 3.4 % (0.0-3.0); HEMATOCRIT 46.2 % (42.0-52.0); HEMOGLOBIN 15.7 g/dl (13.5-17.5); LYMPH # 2.5 10^3/uL (1.5-5.0); LYMPH % 35.4 % (24.0-44.0); MEAN CORPUSCULAR VOLUME 88.2 fl (80.0-96.0); MONO # 0.6 10^3/uL (0.0-0.8); MONO % 8.4 % (2.0-8.0); NEUTROPHILS # 3.7 10^3/uL (1.5-8.5); NEUTROPHILS % 52.1 % (36.0-66.0); PLATELET COUNT, AUTOMATED 278 10^3/uL (150-450); RED BLOOD COUNT 5.24 10^6/uL (4.30-6.10)
[2023-10-25 23:46] LABS: CK-MB VALUE MASS < 1.0 NG/ML (<3.6)
[2023-10-25 23:47] LABS: BLOOD UREA NITROGEN 11 MG/DL (9-23); CALCIUM LEVEL 9.2 MG/DL (8.5-10.1); CARBON DIOXIDE LEVEL 29 MMOL/L (20-31); CHLORIDE LEVEL 105 MMOL/L (98-107); CPK CREATINE PHOSPHOKINASE 233 U/L (46-171); GLOMERULAR FILTRATION RATE > 60.0 (>60); GLUCOSE, FASTING 97 MG/DL (60-100); MB/CK RELATIVE INDEX 0.42 (< OR =4); POTASSIUM SERUM 4.1 MMOL/L (3.5-5.1); SODIUM LEVEL 139 MMOL/L (136-145)
== END 2023-10-26 02:19 | disposition left against medical advice (07) ==
LOC: M ED 22:43
DX: Z53.21 Procedure and treatment not carried out due to patient leaving prior to being seen by health care provider (principal)

== ENCOUNTER → 2023-11-14 | Outpatient (REF) | payer OTHER ==
[2023-11-14 14:28] LABS: THYROID STIMULATING HORMONE 2.132 uIU/ML (0.55-4.78)
[2023-11-14 14:31] LABS: HEMOGLOBIN A1c 5.3 % (4.0-6.0)
[2023-11-14 14:43] LABS: ALBUMIN 3.7 G/DL (3.2-5.2); ALKALINE PHOSPHATASE 54 U/L (46-116); ALT/SGPT 56 U/L (7.0-40); AST/SGOT 18 U/L (<34); BILIRUBIN,TOTAL 0.8 MG/DL (0.3-1.2); BLOOD UREA NITROGEN 13 MG/DL (9-23); CALCIUM LEVEL 9.3 MG/DL (8.5-10.1); CARBON DIOXIDE LEVEL 27 MMOL/L (20-31); CHLORIDE LEVEL 108 MMOL/L (98-107); CHOLESTEROL LEVEL 223 MG/DL (<200); CHOLESTEROL RISK RATIO 4.47 (<5); GLOMERULAR FILTRATION RATE > 60.0 (>60); GLUCOSE, FASTING 69 MG/DL (60-100); HDL CHOLESTEROL 49.8 MG/DL (>40); LDL CHOLESTEROL 140.8 MG/DL (<100); NON-HDL-C 173.2 MG/DL; POTASSIUM SERUM 4.4 MMOL/L (3.5-5.1); SODIUM LEVEL 141 MMOL/L (136-145); TOTAL PROTEIN 6.8 G/DL (5.7-8.2); TRIGLYCERIDES LEVEL 162 MG/DL (<150)
== END ==
LOC: M LAB REF 12:25
PROVIDERS: ATTEND Pediatrics
DX: E78.5 Hyperlipidemia, unspecified (principal); E66.01 Morbid (severe) obesity due to excess calories

== ENCOUNTER 2024-09-21 18:15 | Emergency (ER) | payer OTHER ==
[~2024-09-21] VITALS: Ht 170.2 cm; Wt 107.3 kg
[~2024-09-21 18:15] MED LIST changes: +ONDA-282 PO; -ONDA4TAB6 PO
[2024-09-21 18:18] VITALS: BP 140/95; TEMP 97.2; O2SAT 98
== END 2024-09-21 20:19 | disposition left against medical advice (07) ==
LOC: M ED 18:15
DX: Z53.21 Procedure and treatment not carried out due to patient leaving prior to being seen by health care provider (principal)

== ENCOUNTER → 2024-09-28 | Outpatient (REF) | payer OTHER ==
[2024-09-28 18:26] LABS: BLOOD UREA NITROGEN 11 MG/DL (9-23); CALCIUM LEVEL 9.8 MG/DL (8.5-10.1); CARBON DIOXIDE LEVEL 28 MMOL/L (20-31); CHLORIDE LEVEL 102 MMOL/L (98-107); CREATININE FOR GFR 0.81 MG/DL (0.70-1.30); GLOMERULAR FILTRATION RATE > 60.0 (>60); GLUCOSE, FASTING 91 MG/DL (60-100); POTASSIUM SERUM 4.4 MMOL/L (3.5-5.1); SODIUM LEVEL 138 MMOL/L (136-145)
== END ==
LOC: M LAB REF 16:19
PROVIDERS: ATTEND Nurse Practitioner Family
DX: E87.6 Hypokalemia (principal)

== ENCOUNTER 2024-11-19 18:48 | Emergency (ER) | payer OTHER ==
[2024-11-19] MEDS ORDERED: ALBU8.5H (19:15)
[2024-11-19] MEDS ORDERED: FLUO40CA (19:15)
[2024-11-19] MEDS ORDERED: CIME-49 (19:15)
[2024-11-19 21:08] LABS: BASO # 0.1 10^3/uL (0.0-0.2); BASO % 0.8 % (0.0-1.0); EOS # 0.2 10^3/uL (0.0-0.5); EOS % 2.5 % (0.0-3.0); HEMATOCRIT 45.5 % (42.0-52.0); HEMOGLOBIN 15.6 g/dl (13.5-17.5); LYMPH # 2.9 10^3/uL (1.5-5.0); LYMPH % 33.7 % (24.0-44.0); MEAN CORPUSCULAR HEMOGLOBIN 30.4 pg (27.0-33.0); MEAN CORPUSCULAR HGB CONC 34.3 g/dl (32.0-36.5); MEAN CORPUSCULAR VOLUME 88.7 fl (80.0-96.0); MONO # 0.6 10^3/uL (0.0-0.8); MONO % 7.4 % (2.0-8.0); NEUTROPHILS # 4.8 10^3/uL (1.5-8.5); NEUTROPHILS % 55.4 % (36.0-66.0); PLATELET COUNT, AUTOMATED 292 10^3/uL (150-450); RED BLOOD COUNT 5.13 10^6/uL (4.30-6.10); WHITE BLOOD COUNT 8.6 10^3/uL (4.0-10.0)
[2024-11-19 21:20] LABS: INR 0.94; PARTIAL THROMBOPLASTIN TIME 31.5 SECONDS (24.8-34.2); PROTHROMBIN TIME 12.9 SECONDS (12.5-14.5)
[2024-11-19 21:31] LABS: CK-MB VALUE MASS 1.3 NG/ML (<3.6); LIPASE 32 U/L (12-53)
[2024-11-19 21:34] LABS: ALBUMIN 3.9 G/DL (3.2-5.2); ALKALINE PHOSPHATASE 58 U/L (40-129); ALT/SGPT 42 U/L (7.0-40); AST/SGOT 19 U/L (<34); BILIRUBIN,DIRECT 0.2 MG/DL (<0.4); BILIRUBIN,TOTAL 0.7 MG/DL (0.3-1.2); BLOOD UREA NITROGEN 10 MG/DL (9-23); CALCIUM LEVEL 9.5 MG/DL (8.5-10.1); CARBON DIOXIDE LEVEL 29 MMOL/L (20-31); CHLORIDE LEVEL 104 MMOL/L (98-107); CPK CREATINE PHOSPHOKINASE 300 U/L (46-171); GLOMERULAR FILTRATION RATE > 60.0 (>60); GLUCOSE, FASTING 86 MG/DL (60-100); MB/CK RELATIVE INDEX 0.43 (< OR =4); POTASSIUM SERUM 4.2 MMOL/L (3.5-5.1); SODIUM LEVEL 139 MMOL/L (136-145); THYROID STIMULATING HORMONE 1.844 uIU/ML (0.55-4.78); TOTAL PROTEIN 7.6 G/DL (5.7-8.2)
[2024-11-19 21:35] LABS: FREE T4 1.19 NG/DL (0.89-1.76)
[2024-11-19 22:48] LABS: CK-MB VALUE MASS 1.4 NG/ML (<3.6)
[2024-11-19 22:50] LABS: CPK CREATINE PHOSPHOKINASE 293 U/L (46-171); MB/CK RELATIVE INDEX 0.47 (< OR =4)
[2024-11-20] MEDS ORDERED: NS (Normal Saline) 0.9% 1,000 ML IV SCH (00:25)
[2024-11-20] MEDS ORDERED: COLA100C5 PO (02:03)
[2024-11-20] MEDS: MAGNESIUM CITRATE 300ML BTL PO ONE (02:16)
[2024-11-20 02:22] VITALS: BP 114/57; TEMP 97.3; O2SAT 96
== END 2024-11-20 02:26 | disposition home or self-care (01) ==
LOC: M ED 18:48
DX: R10.9 Unspecified abdominal pain (principal); K21.9 Gastro-esophageal reflux disease without esophagitis; Z79.899 Other long term (current) drug therapy

== ENCOUNTER → 2025-07-22 | Outpatient (REF) | payer MEDICAID, OTHER ==
[~2025-07-22] MED LIST changes: +ALBU8.5H; +CIME-49; +COLA100C5 PO; +FLUO40CA
[2025-07-22 17:13] LABS: ESTIMATED AVERAGE GLUCOSE 105.0 MG/DL (60-110)
[2025-07-22 17:18] LABS: ALT/SGPT 44 U/L (7.0-40); AST/SGOT 19 U/L (<34); CALCIUM LEVEL 9.4 MG/DL (8.5-10.1); CARBON DIOXIDE LEVEL 28 MMOL/L (20-31); CHLORIDE LEVEL 103 MMOL/L (98-107); CHOLESTEROL LEVEL 224 MG/DL (<200); CHOLESTEROL RISK RATIO 4.88 (<5); CREATININE FOR GFR 0.81 MG/DL (0.70-1.30); GLOMERULAR FILTRATION RATE > 90.0 (>60); LDL CHOLESTEROL 135.5 MG/DL (<100); NON-HDL-C 178.1 MG/DL; POTASSIUM SERUM 4.5 MMOL/L (3.5-5.1); SODIUM LEVEL 141 MMOL/L (136-145); TOTAL 25(OH) VITAMIN D 15.4 NG/ML (20.0-100.0); TRIGLYCERIDES LEVEL 213 MG/DL (<150)
== END ==
LOC: M LAB REF 16:16
PROVIDERS: ATTEND Pediatrics
DX: E66.813 Obesity, class 3 (principal); E55.9 Vitamin D deficiency, unspecified; Z68.41 Body mass index [BMI] 40.0-44.9, adult